=== PATIENT | female | born 1945 | race Caucasian/White ===

== ENCOUNTER → 2017-11-29 13:01 | Outpatient (CLI) | payer MEDICARE, OTHER, SELFPAY ==
[2017-11-29 14:22] LABS: Absolute Lymphocyte Count 1.96 X10^3/ul (0.83-4.51); Absolute Neutrophil Count 3.2 X10^3/uL (2.0-7.7); Basophil# 0.05 X10^3/uL; Basophil% 0.8 % (0-1); Eosinophil# 0.45 X10^3/uL; Hematocrit 42.7 % (37-47); Hemoglobin 14.2 g/dl (12.0-15.0); Lymphocyte # 1.96 X10^3/ul (4.0); Lymphocyte % 30.5 % (19-41); Mean Corp Hgb Conc 33.3 g/gl (32-36); Mean Corpuscular Hgb 31.5 pg (27.0-32.0); Mean Corpuscular Volume 94.7 fL (81-99); Monocyte# 0.77 X10^3/uL; Neutrophil # 3.19 X10^3/uL (2.7-7.7); Neutrophil % 49.5 % (47-70); POSITIVE COUNT NO; POSITIVE DIFFERENTIAL NO; POSITIVE MORPHOLOGY NO; Platelet Count 230 K/mm3 (150-450); RBC Distribution Width CV 13.3 % (11.6-14.6); RBC Distribution Width SD 45.9 fl (35.1-43.9); Red Blood Count 4.51 M/mm3 (4.2-5.4); White Blood Count 6.4 K/mm3 (4.4-11.0)
[2017-11-29 14:36] LABS: ALB/GLOB Ratio 0.9 RATIO (0.9-2.4); AST(SGOT) 20 U/L (15-37); Alanine Aminotransfer ALT/SGPT 29 U/L (13-56); Albumin, Serum 3.6 g/dL (3.2-5.0); Alkaline Phosphatase 101 U/L (45-117); Anion Gap 7 (5-15); BUN 14 mg/dL (7-18); BUN/Creat Ratio 19.8 RATIO (10-20); Chloride 102 mmol/L (98-107); Creatinine, Serum 0.71 mg/dL (0.55-1.02); EST Glomerular Filtration Rate 86 mL/min (>60); Est Glom Filt Rate - Afr Amer 104 mL/min (>60); Glucose 81 mg/dL (74-106); Protein, Total 7.6 g/dL (6.4-8.2); Sodium Level 139 mmol/L (136-145)
== END ==
PROVIDERS: Family Provider Family Medicine; PCP Family Medicine; Visit Provider Internal Medicine Rheumatology
DX: M06.4 Inflammatory polyarthropathy (principal); M18.0 Bilateral primary osteoarthritis of first carpometacarpal joints; M47.892 Other spondylosis, cervical region; E11.9 Type 2 diabetes mellitus without complications; E78.5 Hyperlipidemia, unspecified; I47.1 Supraventricular tachycardia; M18.9 Osteoarthritis of first carpometacarpal joint, unspecified; Z79.899 Other long term (current) drug therapy
CPT/HCPCS: 36415; 80053; 85025

== ENCOUNTER → 2018-03-05 15:34 | Outpatient (CLI) | payer MEDICARE, OTHER, SELFPAY ==
[2018-03-05 17:32] LABS: Absolute Lymphocyte Count 1.87 X10^3/ul (0.83-4.51); Absolute Neutrophil Count 2.4 X10^3/uL (2.0-7.7); Basophil% 1.7 % (0-1); Eosinophil# 0.58 X10^3/uL; Hematocrit 44.3 % (37-47); Lymphocyte # 1.87 X10^3/ul (4.0); Lymphocyte % 32.2 % (19-41); Mean Corp Hgb Conc 33.9 g/gl (32-36); Mean Corpuscular Hgb 32.3 pg (27.0-32.0); Mean Corpuscular Volume 95.5 fL (81-99); Mean Platelet Vol. 11.7 fl (6.2-12.0); Monocyte# 0.83 X10^3/uL; Monocyte% 14.3 % (0-10); Neutrophil # 2.42 X10^3/uL (2.7-7.7); Neutrophil % 41.6 % (47-70); Platelet Count 236 K/mm3 (150-450); RBC Distribution Width CV 13.5 % (11.6-14.6); RBC Distribution Width SD 46.1 fl (35.1-43.9); Red Blood Count 4.64 M/mm3 (4.2-5.4); White Blood Count 5.8 K/mm3 (4.4-11.0)
[2018-03-05 17:33] LABS: POSITIVE COUNT NO; POSITIVE DIFFERENTIAL NO; POSITIVE MORPHOLOGY NO
[2018-03-05 17:50] LABS: ALB/GLOB Ratio 0.9 RATIO (0.9-2.4); AST(SGOT) 25 U/L (15-37); Alanine Aminotransfer ALT/SGPT 31 U/L (13-56); Albumin, Serum 3.6 g/dL (3.2-5.0); Alkaline Phosphatase 98 U/L (45-117); Anion Gap 7 (5-15); BUN 13 mg/dL (7-18); Calcium,Total 9.1 mg/dL (8.5-10.1); Chloride 104 mmol/L (98-107); Creatinine, Serum 0.76 mg/dL (0.55-1.02); EST Glomerular Filtration Rate 79 mL/min (>60); Est Glom Filt Rate - Afr Amer 95 mL/min (>60); Globulin 4.2 g/dL (2.2-4.2); Glucose 76 mg/dL (74-106); Potassium 4.1 mmol/L (3.5-5.1); Protein, Total 7.8 g/dL (6.4-8.2); Sodium Level 142 mmol/L (136-145)
== END ==
PROVIDERS: Family Provider Family Medicine; PCP Family Medicine; Visit Provider Internal Medicine Rheumatology
DX: M06.4 Inflammatory polyarthropathy (principal); Z79.899 Other long term (current) drug therapy; M18.0 Bilateral primary osteoarthritis of first carpometacarpal joints; M47.892 Other spondylosis, cervical region; E11.9 Type 2 diabetes mellitus without complications; E78.5 Hyperlipidemia, unspecified; I47.1 Supraventricular tachycardia; M18.9 Osteoarthritis of first carpometacarpal joint, unspecified
CPT/HCPCS: 36415; 80053; 85025

== ENCOUNTER 2018-05-25 20:48 | Emergency (ER) | payer MEDICARE, OTHER, SELFPAY ==
[2018-05-25 20:49] VITALS: BP 131/76; PULSE 82; RESP 15; TEMP 37; BMI 34.3
[2018-05-25 21:33] LABS: Bacteria 0 SEEN /hpf (None Seen); Mucous, Urine 0 SEEN /hpf (<or=2+)
[2018-05-25 21:34] LABS: Color, Urine Yellow (Yellow); Glucose, Dipstick Normal (Normal); Ketone-Dipstick Negative (Negative); Leukocyte Esterase-Dipstick Negative /ul (Negative); Nitrite-Dipstick Negative (Negative); Occult Blood-Urine 10 /ul (Negative); Protein-Dipstick Negative (Negative); Specific Gravity, Urine 1.005 (1.002-1.030); Urine Bilirubin Dipstick Negative (Negative); Urine Clarity Clear (Clear); Urine Urobilinogen Normal (Normal)
[2018-05-25 21:41] LABS: Squamous Epithelial Cells - UA 0-5 SEEN /hpf (5-10)
[2018-05-25 21:42] LABS: Red Blood Cells-Urine 0-5 SEEN /hpf (0-5); White Blood Cells 0-5 SEEN /hpf (0-5)
[2018-05-25 21:53] LABS: Absolute Lymphocyte Count 1.08 X10^3/ul (0.83-4.51); Absolute Neutrophil Count 16.2 X10^3/uL (2.0-7.7); Basophil# 0.05 X10^3/uL; Basophil% 0.3 % (0-1); Eosinophil# 0.08 X10^3/uL; Eosinophils% 0.4 % (0-5); Hematocrit 44.1 % (37-47); Hemoglobin 15.2 g/dl (12.0-15.0); Lymphocyte # 1.08 X10^3/ul (4.0); Lymphocyte % 5.7 % (19-41); Mean Corp Hgb Conc 34.5 g/gl (32-36); Mean Corpuscular Hgb 32.8 pg (27.0-32.0); Mean Platelet Vol. 11.2 fl (6.2-12.0); Monocyte# 1.41 X10^3/uL; Monocyte% 7.5 % (0-10); Neutrophil # 16.19 X10^3/uL (2.7-7.7); Neutrophil % 85.9 % (47-70); POSITIVE COUNT NO; POSITIVE DIFFERENTIAL NO; POSITIVE MORPHOLOGY NO; Platelet Count 208 K/mm3 (150-450); RBC Distribution Width CV 13.8 % (11.6-14.6); Red Blood Count 4.64 M/mm3 (4.2-5.4); White Blood Count 18.8 K/mm3 (4.4-11.0)
[2018-05-25 22:05] LABS: BUN 20 mg/dL (7-18); Creatinine, Serum 0.88 mg/dL (0.55-1.02); Estimated Creatinine Clearance 68.28 ml/min; Glucose 113 mg/dL (74-106)
[2018-05-25 22:06] LABS: Anion Gap 9 (5-15); BUN/Creat Ratio 22.7 RATIO (10-20); Calcium,Total 8.9 mg/dL (8.5-10.1); Chloride 105 mmol/L (98-107); EST Glomerular Filtration Rate 67 mL/min (>60); Est Glom Filt Rate - Afr Amer 81 mL/min (>60); Potassium 3.8 mmol/L (3.5-5.1); Sodium Level 138 mmol/L (136-145)
--- NOTE | 2018-05-25 23:26 | ED.VISSUMM ---
- ER Visit Summary Date of Service: 05/25/18 Chief Complaint: Fatigue, dizziness, headache History of Present Illness: The patient is a 72 F who presents with the above symptoms. She has had this since today. She states that she has not felt well today. She feels weak and tired. She is felt dizzy and lightheaded. She also has a headache and body aches. She claims of some shortness of breath. She has a history of sinus issues in the past. She is currently on methotrexate for rheumatoid arthritis. Her doctor took her off of her blood pressure medicine, diabetes medicines and her Eliquis about 2-3 months ago. Physical Examination: Vital signs reviewed. HEENT exam unremarkable. Heart is irregular at times without murmurs. Lungs are clear to auscultation. Abdomen is soft and nontender. Extremities reveal no edema. Skin exam normal. Neurologic exam normal. Test Results: EKG is sinus rhythm with no ectopy. Chest x-ray reveals nothing acute. CAT scan of the head reveals bilateral sinus disease. White count 18.8. The rest the labs and urinalysis are unremarkable Emergency Department Course and Treatment: The patient does have some pretty significant sinus disease. This could cause her dizziness and headache. I will give her Tylenol and start her on Augmentin. The patient does not want to be admitted to the hospital. I informed her that she needs to return if she develops a fever or increases symptoms. She will be treated with Augmentin at home. Treatment Plan: [] Disposition: Discharge Impression: Sinusitis This note was generated with [employer] dictation software. It may contain incorrect words, spelling, and punctuation that were not noted in review of the chart prior to signing ED Disposition - Plan for ED Patient: Chief Complaint: General Illness Referrals: Rebecca Maher PA [Primary Care Provider] -
--- NOTE | 2018-05-25 23:28 | ED.DEP ---
ED Disposition - Plan for ED Patient: Disposition: Home or Assisted Living Chief Complaint: General Illness Instructions: ED Sinusitis Abx Tx Prescriptions: Amoxicillin/Potassium Clav [Augmentin 875-125 Tablet] 1 ea PO BID #20 tab Referrals: Rebecca Maher PA [Primary Care Provider] -
[2018-05-25] MEDS: Acetaminophen 500 MG Tablet 1000 MG PO (23:47)
[2018-05-25] MEDS: Amox/Clavulanate 875 MG Tablet PO (23:47)
[2018-05-25 23:48] VITALS: BP 146/109
== END 2018-05-25 23:50 | disposition home or self-care (01) ==
PROVIDERS: Emergency Provider Emergency Medicine; Family Provider Physician Assistant; PCP Physician Assistant
DX: J32.0 Chronic maxillary sinusitis (principal); J32.1 Chronic frontal sinusitis; J32.2 Chronic ethmoidal sinusitis; M06.9 Rheumatoid arthritis, unspecified; Z79.899 Other long term (current) drug therapy
CPT/HCPCS: 70450; 71045; 80048; 81001; 84484; 85025; 93005; 96360; 96361; 99284; J7030; J7040

== ENCOUNTER → 2018-06-02 10:55 | Outpatient (CLI) | payer MEDICARE, OTHER, SELFPAY ==
[2018-06-02 12:27] LABS: Hematocrit 44.3 % (37-47); Hemoglobin 15.3 g/dl (12.0-15.0); Mean Corp Hgb Conc 34.5 g/gl (32-36); Mean Corpuscular Hgb 32.8 pg (27.0-32.0); Mean Corpuscular Volume 95.1 fL (81-99); Platelet Count 253 K/mm3 (150-450); RBC Distribution Width CV 13.5 % (11.6-14.6); RBC Distribution Width SD 45.7 fl (35.1-43.9); Red Blood Count 4.66 M/mm3 (4.2-5.4); White Blood Count 6.7 K/mm3 (4.4-11.0)
[2018-06-02 12:30] LABS: Scan Indicated on CBC? Y/N NO
[2018-06-02 12:35] LABS: ALB/GLOB Ratio 0.8 RATIO (0.9-2.4); AST(SGOT) 24 U/L (15-37); Alanine Aminotransfer ALT/SGPT 35 U/L (13-56); Albumin, Serum 3.4 g/dL (3.2-5.0); Alkaline Phosphatase 92 U/L (45-117); Anion Gap 11 (5-15); BUN 17 mg/dL (7-18); BUN/Creat Ratio 23.9 RATIO (10-20); Calcium,Total 9.1 mg/dL (8.5-10.1); Chloride 105 mmol/L (98-107); Creatinine, Serum 0.71 mg/dL (0.55-1.02); EST Glomerular Filtration Rate 85 mL/min (>60); Est Glom Filt Rate - Afr Amer 103 mL/min (>60); Glucose 81 mg/dL (74-106); Potassium 4.2 mmol/L (3.5-5.1); Protein, Total 7.4 g/dL (6.4-8.2); Sodium Level 143 mmol/L (136-145)
== END ==
PROVIDERS: Family Provider Physician Assistant; PCP Physician Assistant; Visit Provider Registered Nurse
DX: R06.02 Shortness of breath (principal)
CPT/HCPCS: 80053; 85027; 85379

== ENCOUNTER → 2018-06-23 14:42 | Outpatient (CLI) | payer MEDICARE, OTHER, SELFPAY ==
[2018-06-23 17:47] LABS: Absolute Neutrophil Count 2.7 X10^3/uL (2.0-7.7); Basophil# 0.05 X10^3/uL; Basophil% 0.9 % (0-1); Eosinophil# 0.28 X10^3/uL; Eosinophils% 5.1 % (0-5); Hematocrit 41.9 % (37-47); Hemoglobin 14.2 g/dl (12.0-15.0); Lymphocyte % 32.8 % (19-41); Mean Corp Hgb Conc 33.9 g/gl (32-36); Mean Corpuscular Hgb 32.9 pg (27.0-32.0); Mean Platelet Vol. 11.4 fl (6.2-12.0); Monocyte# 0.68 X10^3/uL; Monocyte% 12.4 % (0-10); Neutrophil # 2.67 X10^3/uL (2.7-7.7); Neutrophil % 48.6 % (47-70); Platelet Count 195 K/mm3 (150-450); RBC Distribution Width CV 13.7 % (11.6-14.6); RBC Distribution Width SD 47.6 fl (35.1-43.9); Red Blood Count 4.32 M/mm3 (4.2-5.4); White Blood Count 5.5 K/mm3 (4.4-11.0)
[2018-06-23 17:53] LABS: POSITIVE COUNT NO; POSITIVE DIFFERENTIAL NO; POSITIVE MORPHOLOGY NO
[2018-06-23 17:59] LABS: ALB/GLOB Ratio 0.9 RATIO (0.9-2.4); AST(SGOT) 27 U/L (15-37); Alanine Aminotransfer ALT/SGPT 39 U/L (13-56); Albumin, Serum 3.4 g/dL (3.2-5.0); Alkaline Phosphatase 118 U/L (45-117); Anion Gap 8 (5-15); BUN 15 mg/dL (7-18); BUN/Creat Ratio 19.5 RATIO (10-20); Calcium,Total 9.2 mg/dL (8.5-10.1); Chloride 104 mmol/L (98-107); Creatinine, Serum 0.77 mg/dL (0.55-1.02); EST Glomerular Filtration Rate 78 mL/min (>60); Est Glom Filt Rate - Afr Amer 94 mL/min (>60); Globulin 3.8 g/dL (2.2-4.2); Glucose 78 mg/dL (74-106); Potassium 3.9 mmol/L (3.5-5.1); Protein, Total 7.2 g/dL (6.4-8.2); Sodium Level 142 mmol/L (136-145)
== END ==
PROVIDERS: Family Provider Physician Assistant; PCP Physician Assistant; Referring Provider Internal Medicine Rheumatology; Visit Provider Internal Medicine Rheumatology
DX: M06.4 Inflammatory polyarthropathy (principal); Z79.899 Other long term (current) drug therapy; M18.0 Bilateral primary osteoarthritis of first carpometacarpal joints; M47.892 Other spondylosis, cervical region; E11.9 Type 2 diabetes mellitus without complications; E78.5 Hyperlipidemia, unspecified; I47.1 Supraventricular tachycardia
CPT/HCPCS: 36415; 80053; 85025

== ENCOUNTER → 2019-01-02 | Outpatient (CLI) | payer MEDICARE, OTHER, SELFPAY ==
[2019-01-02 14:51] LABS: Absolute Lymphocyte Count 1.75 X10^3/ul (0.83-4.51); Absolute Neutrophil Count 2.8 X10^3/uL (2.0-7.7); Basophil# 0.07 X10^3/uL; Basophil% 1.3 % (0-1); Eosinophil# 0.22 X10^3/uL; Eosinophils% 4.1 % (0-5); Hematocrit 42.8 % (37-47); Hemoglobin 14.3 g/dl (12.0-15.0); Lymphocyte # 1.75 X10^3/ul (4.0); Lymphocyte % 32.6 % (19-41); Mean Corp Hgb Conc 33.4 g/gl (32-36); Mean Corpuscular Hgb 32.6 pg (27.0-32.0); Mean Corpuscular Volume 97.5 fL (81-99); Mean Platelet Vol. 11.3 fl (6.2-12.0); Monocyte# 0.53 X10^3/uL; Monocyte% 9.9 % (0-10); Neutrophil # 2.79 X10^3/uL (2.7-7.7); Neutrophil % 52.1 % (47-70); POSITIVE COUNT NO; POSITIVE DIFFERENTIAL NO; POSITIVE MORPHOLOGY NO; Platelet Count 231 K/mm3 (150-450); RBC Distribution Width CV 14.5 % (11.6-14.6); RBC Distribution Width SD 51.2 fl (35.1-43.9); Red Blood Count 4.39 M/mm3 (4.2-5.4); White Blood Count 5.4 K/mm3 (4.4-11.0)
[2019-01-02 15:31] LABS: AST(SGOT) 20 U/L (15-37); Alanine Aminotransfer ALT/SGPT 25 U/L (13-56); Albumin, Serum 3.7 g/dL (3.2-5.0); Alkaline Phosphatase 113 U/L (45-117); Anion Gap 4 (5-15); BUN 13 mg/dL (7-18); BUN/Creat Ratio 16.6 RATIO (10-20); Calcium,Total 9.1 mg/dL (8.5-10.1); Chloride 109 mmol/L (98-107); Creatinine, Serum 0.78 mg/dL (0.55-1.02); EST Glomerular Filtration Rate 76 mL/min (>60); Est Glom Filt Rate - Afr Amer 92 mL/min (>60); Globulin 3.7 g/dL (2.2-4.2); Glucose 77 mg/dL (74-106); Protein, Total 7.4 g/dL (6.4-8.2); Sodium Level 141 mmol/L (136-145)
== END | disposition home or self-care (01) ==
LOC: MTLAB 13:16
PROVIDERS: Family Provider Physician Assistant; PCP Physician Assistant; Referring Provider Internal Medicine Rheumatology; Visit Provider Internal Medicine Rheumatology
DX: M06.4 Inflammatory polyarthropathy (principal); M18.0 Bilateral primary osteoarthritis of first carpometacarpal joints; M21.40 Flat foot [pes planus] (acquired), unspecified foot; M47.892 Other spondylosis, cervical region; E11.9 Type 2 diabetes mellitus without complications; E78.5 Hyperlipidemia, unspecified; I47.1 Supraventricular tachycardia; M18.9 Osteoarthritis of first carpometacarpal joint, unspecified; Z79.899 Other long term (current) drug therapy
CPT/HCPCS: 36415; 80053; 85025

== ENCOUNTER → 2019-04-07 | Outpatient (CLI) | payer MEDICARE, OTHER, SELFPAY ==
[2019-04-07 15:44] LABS: Absolute Neutrophil Count 3.1 X10^3/uL (2.0-7.7); Basophil# 0.06 X10^3/uL; Basophil% 1.1 % (0-1); Eosinophil# 0.18 X10^3/uL; Eosinophils% 3.3 % (0-5); Hematocrit 44.6 % (37-47); Lymphocyte % 27.2 % (19-41); Mean Corp Hgb Conc 33.6 g/dL (32-36); Mean Corpuscular Hgb 33.2 pg (27.0-32.0); Mean Corpuscular Volume 98.7 fL (81-99); Mean Platelet Vol. 11.4 fl (6.2-12.0); Monocyte% 12.7 % (0-10); NRBC Flagged by Analyzer 0 % (0-5); Neutrophil # 3.05 X10^3/uL (2.7-7.7); Neutrophil % 55.3 % (47-70); Platelet Count 236 K/mm3 (150-450); RBC Distribution Width CV 13.6 % (11.6-14.6); RBC Distribution Width SD 49.1 fl (35.1-43.9); Red Blood Count 4.52 M/mm3 (4.2-5.4); White Blood Count 5.5 K/mm3 (4.4-11.0)
[2019-04-07 16:04] LABS: AST(SGOT) 22 U/L (15-37); Alanine Aminotransfer ALT/SGPT 25 U/L (13-56); Albumin, Serum 3.7 g/dL (3.2-5.0); Alkaline Phosphatase 129 U/L (45-117); Anion Gap 4 (5-15); BUN 14 mg/dL (7-18); BUN/Creat Ratio 16.2 RATIO (10-20); Calcium,Total 9.4 mg/dL (8.5-10.1); Chloride 109 mmol/L (98-107); Creatinine, Serum 0.86 mg/dL (0.55-1.02); EST Glomerular Filtration Rate 68 mL/min (>60); Est Glom Filt Rate - Afr Amer 82 mL/min (>60); Globulin 3.7 g/dL (2.2-4.2); Glucose 86 mg/dL (74-106); Protein, Total 7.4 g/dL (6.4-8.2); Sodium Level 139 mmol/L (136-145)
== END | disposition home or self-care (01) ==
LOC: MTLAB 14:07
PROVIDERS: Family Provider Physician Assistant; PCP Physician Assistant; Referring Provider Internal Medicine Rheumatology; Visit Provider Internal Medicine Rheumatology
DX: M06.4 Inflammatory polyarthropathy (principal); M18.11 Unilateral primary osteoarthritis of first carpometacarpal joint, right hand; M21.40 Flat foot [pes planus] (acquired), unspecified foot; M47.892 Other spondylosis, cervical region; E11.9 Type 2 diabetes mellitus without complications; E78.5 Hyperlipidemia, unspecified; I47.1 Supraventricular tachycardia; M18.9 Osteoarthritis of first carpometacarpal joint, unspecified; Z79.899 Other long term (current) drug therapy
CPT/HCPCS: 36415; 80053; 85025

== ENCOUNTER → 2019-10-05 10:00 | Outpatient (CLI) | payer MEDICARE, OTHER, SELFPAY ==
[2019-10-05 13:09] LABS: Absolute Lymphocyte Count 1.27 X10^3/uL (0.83-4.51); Basophil# 0.05 X10^3/uL; Eosinophils% 3.9 % (0-5); Lymphocyte # 1.27 X10^3/ul (4.0); Lymphocyte % 24.8 % (19-41); Mean Corp Hgb Conc 33.3 g/dL (32-36); Mean Corpuscular Hgb 32.9 pg (27.0-32.0); Mean Corpuscular Volume 98.7 fL (81-99); Mean Platelet Vol. 11.2 fl (6.2-12.0); Monocyte# 0.63 X10^3/uL; Monocyte% 12.3 % (0-10); NRBC Flagged by Analyzer 0 % (0-5); Neutrophil # 2.96 X10^3/uL (2.7-7.7); Neutrophil % 57.6 % (47-70); Platelet Count 219 K/mm3 (150-450); RBC Distribution Width CV 13.6 % (11.6-14.6); RBC Distribution Width SD 49.2 fl (35.1-43.9); Red Blood Count 4.56 M/mm3 (4.2-5.4); White Blood Count 5.1 K/mm3 (4.4-11.0)
[2019-10-05 13:54] LABS: ALB/GLOB Ratio 0.9 RATIO (0.9-2.4); AST(SGOT) 18 U/L (15-37); Alanine Aminotransfer ALT/SGPT 24 U/L (13-56); Albumin, Serum 3.5 g/dL (3.2-5.0); Alkaline Phosphatase 120 U/L (45-117); Anion Gap 4 (5-15); BUN 17 mg/dL (7-18); BUN/Creat Ratio 20.2 RATIO (10-20); Calcium,Total 9.4 mg/dL (8.5-10.1); Chloride 108 mmol/L (98-107); Creatinine, Serum 0.84 mg/dL (0.55-1.02); EST Glomerular Filtration Rate 70 mL/min (>60); Est Glom Filt Rate - Afr Amer 85 mL/min (>60); Glucose 80 mg/dL (74-106); Potassium 4.1 mmol/L (3.5-5.1); Protein, Total 7.5 g/dL (6.4-8.2); Sodium Level 141 mmol/L (136-145)
== END ==
PROVIDERS: Family Provider Physician Assistant; PCP Physician Assistant; Referring Provider Internal Medicine Rheumatology; Visit Provider Internal Medicine Rheumatology
DX: M06.4 Inflammatory polyarthropathy (principal); Z79.899 Other long term (current) drug therapy; M18.11 Unilateral primary osteoarthritis of first carpometacarpal joint, right hand; M21.40 Flat foot [pes planus] (acquired), unspecified foot; E11.9 Type 2 diabetes mellitus without complications
CPT/HCPCS: 36415; 80053; 85025

== ENCOUNTER → 2019-12-31 14:41 | Outpatient (CLI) | payer MEDICARE, OTHER, SELFPAY ==
[2019-12-31 17:28] LABS: Absolute Lymphocyte Count 1.51 X10^3/uL (0.83-4.51); Absolute Neutrophil Count 2.6 X10^3/uL (2.0-7.7); Basophil# 0.08 X10^3/uL; Basophil% 1.6 % (0-1); Eosinophil# 0.15 X10^3/uL; Hematocrit 42.4 % (37-47); Hemoglobin 14.3 g/dL (12.0-15.0); Lymphocyte # 1.51 X10^3/ul (4.0); Mean Corp Hgb Conc 33.7 g/dL (32-36); Mean Corpuscular Hgb 33.3 pg (27.0-32.0); Mean Corpuscular Volume 98.6 fL (81-99); Mean Platelet Vol. 11.4 fl (6.2-12.0); Monocyte% 13.9 % (0-10); NRBC Flagged by Analyzer 0 % (0-5); Neutrophil # 2.58 X10^3/uL (2.7-7.7); Neutrophil % 51.3 % (47-70); Platelet Count 213 K/mm3 (150-450); RBC Distribution Width CV 14.1 % (11.6-14.6); RBC Distribution Width SD 50.9 fl (35.1-43.9)
[2019-12-31 17:41] LABS: AST(SGOT) 17 U/L (15-37); Alanine Aminotransfer ALT/SGPT 26 U/L (13-56); Albumin, Serum 3.4 g/dL (3.2-5.0); Alkaline Phosphatase 121 U/L (45-117); Anion Gap 4 (5-15); BUN 15 mg/dL (7-18); BUN/Creat Ratio 19.5 RATIO (10-20); Chloride 107 mmol/L (98-107); Creatinine, Serum 0.77 mg/dL (0.55-1.02); EST Glomerular Filtration Rate 77 mL/min (>60); Est Glom Filt Rate - Afr Amer 94 mL/min (>60); Globulin 3.4 g/dL (2.2-4.2); Glucose 102 mg/dL (74-106); Potassium 3.8 mmol/L (3.5-5.1); Protein, Total 6.8 g/dL (6.4-8.2); Sodium Level 141 mmol/L (136-145)
== END ==
PROVIDERS: PCP Physician Assistant; Referring Provider Internal Medicine Rheumatology; Visit Provider Internal Medicine Rheumatology
DX: M06.4 Inflammatory polyarthropathy (principal); Z79.899 Other long term (current) drug therapy; M18.11 Unilateral primary osteoarthritis of first carpometacarpal joint, right hand; M21.40 Flat foot [pes planus] (acquired), unspecified foot; E11.9 Type 2 diabetes mellitus without complications
CPT/HCPCS: 36415; 80053; 85025

== ENCOUNTER → 2020-03-09 12:35 | Outpatient (CLI) | payer MEDICARE, OTHER, SELFPAY ==
[2020-03-09 15:48] LABS: Absolute Neutrophil Count 2.9 X10^3/uL (2.0-7.7); Basophil# 0.06 X10^3/uL; Basophil% 1.2 % (0-1); Eosinophil# 0.12 X10^3/uL; Eosinophils% 2.5 % (0-5); Hematocrit 45.4 % (37-47); Lymphocyte % 24.6 % (19-41); Mean Corpuscular Hgb 33.2 pg (27.0-32.0); Mean Corpuscular Volume 100.4 fL (81-99); Mean Platelet Vol. 11.4 fl (6.2-12.0); Monocyte# 0.55 X10^3/uL; Monocyte% 11.3 % (0-10); NRBC Flagged by Analyzer 0 % (0-5); Neutrophil # 2.94 X10^3/uL (2.7-7.7); Neutrophil % 60.2 % (47-70); Platelet Count 238 K/mm3 (150-450); RBC Distribution Width CV 13.7 % (11.6-14.6); RBC Distribution Width SD 50.8 fl (35.1-43.9); Red Blood Count 4.52 M/mm3 (4.2-5.4); White Blood Count 4.9 K/mm3 (4.4-11.0)
[2020-03-09 16:14] LABS: AST(SGOT) 23 U/L (15-37); Alanine Aminotransfer ALT/SGPT 29 U/L (13-56); Albumin, Serum 3.7 g/dL (3.2-5.0); Alkaline Phosphatase 97 U/L (45-117); Anion Gap 5 (5-15); BUN 14 mg/dL (7-18); Calcium,Total 9.4 mg/dL (8.5-10.1); Chloride 106 mmol/L (98-107); Creatinine, Serum 0.82 mg/dL (0.55-1.02); EST Glomerular Filtration Rate 71 mL/min (>60); Est Glom Filt Rate - Afr Amer 86 mL/min (>60); Globulin 3.6 g/dL (2.2-4.2); Glucose 95 mg/dL (74-106); Potassium 4.1 mmol/L (3.5-5.1); Protein, Total 7.3 g/dL (6.4-8.2); Sodium Level 140 mmol/L (136-145)
== END ==
PROVIDERS: PCP Physician Assistant; Referring Provider Internal Medicine Rheumatology; Visit Provider Internal Medicine Rheumatology
DX: M06.4 Inflammatory polyarthropathy (principal); Z79.899 Other long term (current) drug therapy; M18.11 Unilateral primary osteoarthritis of first carpometacarpal joint, right hand; M21.40 Flat foot [pes planus] (acquired), unspecified foot; E11.9 Type 2 diabetes mellitus without complications
CPT/HCPCS: 36415; 80053; 85025

== ENCOUNTER → 2020-05-31 14:18 | Outpatient (CLI) | payer MEDICARE, OTHER, SELFPAY ==
[2020-05-31 18:00] LABS: Absolute Lymphocyte Count 1.52 X10^3/uL (0.83-4.51); Absolute Neutrophil Count 3.7 X10^3/uL (2.0-7.7); Basophil# 0.05 X10^3/uL; Basophil% 0.8 % (0-1); Eosinophil# 0.15 X10^3/uL; Eosinophils% 2.4 % (0-5); Hematocrit 44.1 % (37-47); Hemoglobin 14.6 g/dL (12.0-15.0); Lymphocyte # 1.52 X10^3/ul (4.0); Lymphocyte % 24.8 % (19-41); Mean Corp Hgb Conc 33.1 g/dL (32-36); Mean Corpuscular Volume 99.5 fL (81-99); Mean Platelet Vol. 11.6 fl (6.2-12.0); Monocyte# 0.68 X10^3/uL; Monocyte% 11.1 % (0-10); NRBC Flagged by Analyzer 0 % (0-5); Neutrophil # 3.72 X10^3/uL (2.7-7.7); Neutrophil % 60.7 % (47-70); Platelet Count 246 K/mm3 (150-450); RBC Distribution Width CV 13.5 % (11.6-14.6); RBC Distribution Width SD 49.4 fl (35.1-43.9); Red Blood Count 4.43 M/mm3 (4.2-5.4); White Blood Count 6.1 K/mm3 (4.4-11.0)
[2020-05-31 18:21] LABS: AST(SGOT) 18 U/L (15-37); Alanine Aminotransfer ALT/SGPT 25 U/L (13-56); Albumin, Serum 3.6 g/dL (3.2-5.0); Alkaline Phosphatase 100 U/L (45-117); Anion Gap 3 (5-15); BUN 11 mg/dL (7-18); BUN/Creat Ratio 14.5 RATIO (10-20); Calcium,Total 8.9 mg/dL (8.5-10.1); Chloride 106 mmol/L (98-107); Creatinine, Serum 0.76 mg/dL (0.55-1.02); EST Glomerular Filtration Rate 79 mL/min (>60); Est Glom Filt Rate - Afr Amer 95 mL/min (>60); Globulin 3.5 g/dL (2.2-4.2); Glucose 73 mg/dL (74-106); Potassium 3.8 mmol/L (3.5-5.1); Protein, Total 7.1 g/dL (6.4-8.2); Sodium Level 139 mmol/L (136-145)
== END ==
PROVIDERS: PCP Physician Assistant; Referring Provider Internal Medicine Rheumatology; Visit Provider Internal Medicine Rheumatology
DX: M06.4 Inflammatory polyarthropathy (principal); Z79.899 Other long term (current) drug therapy; M18.11 Unilateral primary osteoarthritis of first carpometacarpal joint, right hand; M21.40 Flat foot [pes planus] (acquired), unspecified foot; E11.9 Type 2 diabetes mellitus without complications
CPT/HCPCS: 36415; 80053; 85025

== ENCOUNTER 2020-08-16 17:26 | Emergency (ER) | payer MEDICARE, OTHER, SELFPAY ==
[2020-08-16 17:27] VITALS: BP 145/65; PULSE 68; RESP 18; TEMP 36.2; O2SAT 97; BMI 36.8
--- NOTE | 2020-08-16 17:49 | EKG12_ITS ---
Test Reason : CHEST TIGHTNESS Blood Pressure : / mmHG Vent. Rate : 067 BPM Atrial Rate : 067 BPM P-R Int : 192 ms QRS Dur : 084 ms QT Int : 378 ms P-R-T Axes : 024 023 032 degrees QTc Int : 399 ms Normal sinus rhythm Normal ECG Confirmed by SHAJI MONTANEZ, RICARDO ([id number]), editor trade journal BRUNO ARANDA ([id number]) on 08/19/2020 11:02:04 AM Referred By: Confirmed By:RICARDO GIRARD MD
--- NOTE | 2020-08-16 18:03 | ED.DCSUM_ITS ---
- ER Visit Summary Date of Service: 08/16/20 Chief Complaint: Cough History of Present Illness: The patient is a 74 F presenting with cough, fever. She states the symptoms started yesterday. She was tested for Covid 2 weeks ago she states as a precaution. She was asymptomatic at the time. She denies loss of sense of taste or smell. She has had a dry cough. She has shortness of breath which is chronic and no worse than usual. She complains of subjective fever and chills. She has myalgias. She denies chest pain. She states yesterday she had a headache but this has resolved. She denies other complaints. Physical Examination: Vitals are stable. Patient is afebrile. Alert no acute distress. Pulse ox 97% on room air. HEENT exam is unremarkable. Neck is supple. Lungs are clear and equal bilaterally. Heart is regular rate and rhythm. Abdomen is soft nontender nondistended. Extremities are unremarkable. Skin is warm and dry. No focal neurologic deficit. Remainder of exam is unremarkable. Emergency Department Course and Treatment: EKG is sinus rhythm rate of 67 with no acute ischemic changes. Chest x-ray shows stable, nonacute portable x-ray examination of the chest. Covid test is positive. Her ambulatory pulse ox is 93 to 96% on room air. On reevaluation she is resting comfortably. She is advised to socially distance and quarantine. She is advised signs and symptoms for which to return to the ED. Advised to follow-up with primary care physician. Disposition: Discharged home Impression: COVID-19 This note was generated with [employer] dictation software. It may contain incorrect words, spelling, and punctuation that were not noted in review of the chart prior to signing ED Disposition - Plan for ED Patient: Disposition: Home or Assisted Living Instructions: ED Viral Syndrome Referrals: Rebecca Maher PA [Primary Care Provider] -
--- NOTE | 2020-08-16 18:05 | RAD_ITS ---
STUDY: X-RAY CHEST REASON FOR EXAM: Female, 74 years old. PT WITH COUGH, HEADACHE, WEAKNESS, FEVER SINCE YESTERDAY. TECHNIQUE: AP COMPARISON: 05/25/2018 FINDINGS: The lungs are clear and expanded. There is no demonstrated pleural abnormality. Normal size heart. Normal mediastinum and mariella. Normal visualized pulmonary arteries. There is atherosclerotic tortuosity of the aortic arch and descending thoracic aorta. Normal visualized thoracic spine. Normal visualized ribs, clavicles, and shoulders. There is no demonstrated abnormality of the visualized soft tissue structures of the upper abdomen. RAD/Chest 1 View (Portable) IMPRESSION: Stable, nonacute portable x-ray examination of the chest. Electronically Signed: Aung De Leon MD (Brooks) at 18:28 EST , Service support ,
[2020-08-16 19:26] VITALS: BP 126/59; PULSE 70; RESP 18; O2SAT 96
[2020-08-16 19:37] VITALS: O2SAT 96
--- NOTE | 2020-08-16 19:45 | ED.DEP ---
ED Disposition - Plan for ED Patient: Instructions: ED Viral Syndrome Referrals: Rebecca Maher PA [Primary Care Provider] -
== END 2020-08-16 20:06 | disposition home or self-care (01) ==
LOC: ED 18:43
PROVIDERS: Emergency Provider Emergency Medicine; PCP Physician Assistant
DX: U07.1 COVID-19 (principal); E11.9 Type 2 diabetes mellitus without complications; K21.9 Gastro-esophageal reflux disease without esophagitis; E78.00 Pure hypercholesterolemia, unspecified; M06.9 Rheumatoid arthritis, unspecified
CPT/HCPCS: 71045; 87426; 93005; 99282

== ENCOUNTER → 2020-09-20 12:25 | Outpatient (CLI) | payer MEDICARE, OTHER, SELFPAY ==
[2020-09-20 15:06] LABS: Absolute Lymphocyte Count 1.82 X10^3/uL (0.83-4.51); Basophil# 0.08 X10^3/uL; Basophil% 1.3 % (0-1); Eosinophil# 0.25 X10^3/uL; Eosinophils% 4.2 % (0-5); Hematocrit 43.9 % (37-47); Hemoglobin 14.2 g/dL (12.0-15.0); Lymphocyte # 1.82 X10^3/ul (4.0); Lymphocyte % 30.4 % (19-41); Mean Corp Hgb Conc 32.3 g/dL (32-36); Mean Corpuscular Hgb 32.6 pg (27.0-32.0); Mean Corpuscular Volume 100.7 fL (81-99); Mean Platelet Vol. 11.3 fl (6.2-12.0); Monocyte# 0.79 X10^3/uL; Monocyte% 13.2 % (0-10); NRBC Flagged by Analyzer 0 % (0-5); Neutrophil # 3.03 X10^3/uL (2.7-7.7); Neutrophil % 50.7 % (47-70); Platelet Count 216 K/mm3 (150-450); RBC Distribution Width CV 14.2 % (11.6-14.6); RBC Distribution Width SD 53.6 fl (35.1-43.9); Red Blood Count 4.36 M/mm3 (4.2-5.4)
[2020-09-20 15:17] LABS: ALB/GLOB Ratio 0.9 RATIO (0.9-2.4); AST(SGOT) 21 U/L (15-37); Alanine Aminotransfer ALT/SGPT 26 U/L (13-56); Albumin, Serum 3.6 g/dL (3.2-5.0); Alkaline Phosphatase 121 U/L (45-117); Anion Gap 3 (5-15); BUN 11 mg/dL (7-18); BUN/Creat Ratio 13.3 RATIO (10-20); Calcium,Total 9.2 mg/dL (8.5-10.1); Chloride 106 mmol/L (98-107); Creatinine, Serum 0.83 mg/dL (0.55-1.02); EST Glomerular Filtration Rate 71 mL/min (>60); Est Glom Filt Rate - Afr Amer 86 mL/min (>60); Glucose 81 mg/dL (74-106); Protein, Total 7.6 g/dL (6.4-8.2); Sodium Level 141 mmol/L (136-145)
== END ==
PROVIDERS: PCP Physician Assistant; Referring Provider Internal Medicine Rheumatology; Visit Provider Internal Medicine Rheumatology
DX: M06.4 Inflammatory polyarthropathy (principal); Z79.899 Other long term (current) drug therapy; M18.11 Unilateral primary osteoarthritis of first carpometacarpal joint, right hand; M21.40 Flat foot [pes planus] (acquired), unspecified foot; E11.9 Type 2 diabetes mellitus without complications
CPT/HCPCS: 36415; 80053; 85025

== ENCOUNTER → 2021-03-02 15:02 | Outpatient (CLI) | payer MEDICARE, OTHER, SELFPAY ==
[2021-03-02 17:34] LABS: Absolute Lymphocyte Count 1.45 X10^3/uL (0.83-4.51); Basophil# 0.06 X10^3/uL; Basophil% 1.1 % (0-1); Eosinophil# 0.14 X10^3/uL; Eosinophils% 2.6 % (0-5); Hematocrit 42.6 % (37-47); Hemoglobin 14.4 g/dL (12.0-15.0); Lymphocyte # 1.45 X10^3/ul (0.83-4.51); Lymphocyte % 27.2 % (19-41); Mean Corp Hgb Conc 33.8 g/dL (32-36); Mean Corpuscular Volume 100.7 fL (81-99); Mean Platelet Vol. 11.3 fl (6.2-12.0); Monocyte# 0.63 X10^3/uL; Monocyte% 11.8 % (0-10); NRBC Flagged by Analyzer 0 % (0-5); Neutrophil # 3.03 X10^3/uL (2.7-7.7); Neutrophil % 56.9 % (47-70); Platelet Count 232 K/mm3 (150-450); RBC Distribution Width CV 14.2 % (11.6-14.6); RBC Distribution Width SD 51.7 fl (35.1-43.9); Red Blood Count 4.23 M/mm3 (4.2-5.4); White Blood Count 5.3 K/mm3 (4.4-11.0)
[2021-03-02 18:24] LABS: ALB/GLOB Ratio 1.1 RATIO (0.9-2.4); AST(SGOT) 20 U/L (15-37); Alanine Aminotransfer ALT/SGPT 29 U/L (13-56); Albumin, Serum 3.7 g/dL (3.2-5.0); Alkaline Phosphatase 110 U/L (45-117); Anion Gap 6 (5-15); BUN 18 mg/dL (7-18); BUN/Creat Ratio 22.4 RATIO (10-20); Calcium,Total 9.4 mg/dL (8.5-10.1); Chloride 107 mmol/L (98-107); EST Glomerular Filtration Rate 73 mL/min (>60); Est Glom Filt Rate - Afr Amer 89 mL/min (>60); Globulin 3.5 g/dL (2.2-4.2); Glucose 83 mg/dL (74-106); Potassium 4.1 mmol/L (3.5-5.1); Protein, Total 7.2 g/dL (6.4-8.2); Sodium Level 140 mmol/L (136-145)
== END ==
PROVIDERS: PCP Physician Assistant; Referring Provider Internal Medicine Rheumatology; Visit Provider Internal Medicine Rheumatology
DX: M06.4 Inflammatory polyarthropathy (principal); Z79.899 Other long term (current) drug therapy; M18.11 Unilateral primary osteoarthritis of first carpometacarpal joint, right hand; M21.40 Flat foot [pes planus] (acquired), unspecified foot; E11.9 Type 2 diabetes mellitus without complications
CPT/HCPCS: 36415; 80053; 85025

== ENCOUNTER → 2021-05-25 12:34 | Outpatient (CLI) | payer MEDICARE, OTHER, SELFPAY ==
[2021-05-25 15:12] LABS: Absolute Lymphocyte Count 1.61 X10^3/uL (0.83-4.51); Absolute Neutrophil Count 3.5 X10^3/uL (2.0-7.7); Basophil# 0.06 X10^3/uL; Eosinophil# 0.18 X10^3/uL; Hematocrit 43.4 % (37-47); Hemoglobin 14.6 g/dL (12.0-15.0); Lymphocyte # 1.61 X10^3/ul (0.83-4.51); Lymphocyte % 26.4 % (19-41); Mean Corp Hgb Conc 33.6 g/dL (32-36); Mean Corpuscular Hgb 33.6 pg (27.0-32.0); Mean Corpuscular Volume 99.8 fL (81-99); Mean Platelet Vol. 11.4 fl (6.2-12.0); Monocyte# 0.72 X10^3/uL; Monocyte% 11.8 % (0-10); NRBC Flagged by Analyzer 0 % (0-5); Neutrophil % 57.5 % (47-70); Platelet Count 225 K/mm3 (150-450); RBC Distribution Width CV 13.5 % (11.6-14.6); RBC Distribution Width SD 49.4 fl (35.1-43.9); Red Blood Count 4.35 M/mm3 (4.2-5.4); White Blood Count 6.1 K/mm3 (4.4-11.0)
[2021-05-25 15:27] LABS: AST(SGOT) 22 U/L (15-37); Alanine Aminotransfer ALT/SGPT 29 U/L (13-56); Albumin, Serum 3.6 g/dL (3.2-5.0); Alkaline Phosphatase 122 U/L (45-117); Anion Gap 4 (5-15); BUN 16 mg/dL (7-18); BUN/Creat Ratio 22.2 RATIO (10-20); Calcium,Total 9.2 mg/dL (8.5-10.1); Chloride 106 mmol/L (98-107); Creatinine, Serum 0.72 mg/dL (0.55-1.02); EST Glomerular Filtration Rate 83 mL/min (>60); Est Glom Filt Rate - Afr Amer 101 mL/min (>60); Globulin 3.5 g/dL (2.2-4.2); Glucose 97 mg/dL (74-106); Potassium 4.2 mmol/L (3.5-5.1); Protein, Total 7.1 g/dL (6.4-8.2); Sodium Level 141 mmol/L (136-145)
== END ==
PROVIDERS: PCP Physician Assistant; Referring Provider Internal Medicine Rheumatology; Visit Provider Internal Medicine Rheumatology
DX: M06.4 Inflammatory polyarthropathy (principal); Z79.899 Other long term (current) drug therapy; M18.11 Unilateral primary osteoarthritis of first carpometacarpal joint, right hand; M21.40 Flat foot [pes planus] (acquired), unspecified foot; E11.9 Type 2 diabetes mellitus without complications
CPT/HCPCS: 36415; 80053; 85025

== ENCOUNTER → 2021-06-06 10:11 | Outpatient (CLI) | payer MEDICARE, OTHER, SELFPAY ==
--- NOTE | 2021-06-06 10:15 | RAD_ITS ---
STUDY: X-RAY - RIGHT KNEE REASON FOR EXAM: Right knee pain. TECHNIQUE: 4 view(s) of the knee. COMPARISON: Radiograph report 08/28/2010. FINDINGS: Normal visualized distal femur. Normal visualized proximal tibia and fibula. Normal proximal tibiofibular articulation. There is mild joint space narrowing of the medial femorotibial compartment. Normal lateral femorotibial compartment. Normal patellofemoral articulation. The soft tissue structures are unremarkable. RAD/Knee 4 or More Views IMPRESSION: Mild arthrosis of the medial femorotibial compartment. Electronically Signed: Octavio Tom MD at 14:59 EDT Tel , Service support ,
--- NOTE | 2021-06-06 10:15 | RAD_ITS ---
STUDY: X-RAY - LEFT KNEE REASON FOR EXAM: Left knee pain. TECHNIQUE: 4 view(s) of the knee. COMPARISON: Radiographs of the left lower leg 03/26/2017 and radiograph report 08/28/2010. FINDINGS: Normal visualized distal femur. Normal visualized proximal tibia and fibula. Normal proximal tibiofibular articulation. There is mild joint space narrowing of the medial femorotibial compartment. Normal lateral femorotibial compartment. Normal patellofemoral articulation. The soft tissue structures are unremarkable. RAD/Knee 4 or More Views IMPRESSION: Mild arthrosis of the medial femorotibial compartment. Electronically Signed: Octavio Tom MD at 13:28 EDT Tel , Service support ,
== END ==
PROVIDERS: PCP Physician Assistant; Referring Provider Internal Medicine Rheumatology; Visit Provider Internal Medicine Rheumatology
DX: M06.4 Inflammatory polyarthropathy (principal); M18.11 Unilateral primary osteoarthritis of first carpometacarpal joint, right hand; M21.40 Flat foot [pes planus] (acquired), unspecified foot; E11.9 Type 2 diabetes mellitus without complications; Z79.899 Other long term (current) drug therapy
CPT/HCPCS: 73564

== ENCOUNTER → 2021-08-24 09:20 | Outpatient (CLI) | payer MEDICARE, OTHER, SELFPAY ==
[2021-08-24 12:10] LABS: Absolute Lymphocyte Count 1.41 X10^3/uL (0.83-4.51); Absolute Neutrophil Count 3.7 X10^3/uL (2.0-7.7); Basophil# 0.07 X10^3/uL; Basophil% 1.2 % (0-1); Eosinophil# 0.17 X10^3/uL; Eosinophils% 2.8 % (0-5); Hematocrit 43.6 % (37-47); Hemoglobin 14.7 g/dL (12.0-15.0); Lymphocyte # 1.41 X10^3/ul (0.83-4.51); Lymphocyte % 23.2 % (19-41); Mean Corp Hgb Conc 33.7 g/dL (32-36); Mean Corpuscular Hgb 33.3 pg (27.0-32.0); Mean Corpuscular Volume 98.6 fL (81-99); Mean Platelet Vol. 11.3 fl (6.2-12.0); Monocyte# 0.67 X10^3/uL; NRBC Flagged by Analyzer 0 % (0-5); Neutrophil % 60.8 % (47-70); Platelet Count 236 K/mm3 (150-450); RBC Distribution Width SD 50.7 fl (35.1-43.9); Red Blood Count 4.42 M/mm3 (4.2-5.4); White Blood Count 6.1 K/mm3 (4.4-11.0)
[2021-08-24 13:02] LABS: ALB/GLOB Ratio 0.9 RATIO (0.9-2.4); AST(SGOT) 21 U/L (15-37); Alanine Aminotransfer ALT/SGPT 24 U/L (13-56); Albumin, Serum 3.5 g/dL (3.2-5.0); Alkaline Phosphatase 128 U/L (45-117); Anion Gap 7 (5-15); BUN 18 mg/dL (7-18); BUN/Creat Ratio 21.3 RATIO (10-20); Calcium,Total 9.1 mg/dL (8.5-10.1); Chloride 105 mmol/L (98-107); Creatinine, Serum 0.85 mg/dL (0.55-1.02); EST Glomerular Filtration Rate 69 mL/min (>60); Est Glom Filt Rate - Afr Amer 84 mL/min (>60); Globulin 3.8 g/dL (2.2-4.2); Glucose 80 mg/dL (74-106); Potassium 3.9 mmol/L (3.5-5.1); Protein, Total 7.3 g/dL (6.4-8.2); Sodium Level 142 mmol/L (136-145)
== END ==
PROVIDERS: PCP Physician Assistant; Referring Provider Internal Medicine Rheumatology; Visit Provider Internal Medicine Rheumatology
DX: M06.4 Inflammatory polyarthropathy (principal); Z79.899 Other long term (current) drug therapy; M18.11 Unilateral primary osteoarthritis of first carpometacarpal joint, right hand; M21.40 Flat foot [pes planus] (acquired), unspecified foot; E11.9 Type 2 diabetes mellitus without complications
CPT/HCPCS: 36415; 80053; 85025

== ENCOUNTER 2021-11-15 09:12 | Outpatient (CLI) | payer MEDICARE, OTHER, SELFPAY ==
[2021-11-15 10:21] LABS: Absolute Lymphocyte Count 1.47 X10^3/uL (0.83-4.51); Absolute Neutrophil Count 4.2 X10^3/uL (2.0-7.7); Basophil# 0.06 X10^3/uL; Basophil% 0.9 % (0-1); Eosinophil# 0.12 X10^3/uL; Eosinophils% 1.8 % (0-5); Hemoglobin 13.9 g/dL (12.0-15.0); Lymphocyte # 1.47 X10^3/ul (0.83-4.51); Lymphocyte % 22.7 % (19-41); Mean Corp Hgb Conc 33.1 g/dL (32-36); Mean Corpuscular Hgb 32.9 pg (27.0-32.0); Mean Corpuscular Volume 99.5 fL (81-99); Mean Platelet Vol. 11.1 fl (6.2-12.0); Monocyte# 0.62 X10^3/uL; Monocyte% 9.6 % (0-10); NRBC Flagged by Analyzer 0 % (0-5); Neutrophil # 4.19 X10^3/uL (2.7-7.7); Neutrophil % 64.5 % (47-70); Platelet Count 249 K/mm3 (150-450); RBC Distribution Width CV 13.9 % (11.6-14.6); RBC Distribution Width SD 49.7 fl (35.1-43.9); Red Blood Count 4.22 M/mm3 (4.2-5.4); White Blood Count 6.5 K/mm3 (4.4-11.0)
[2021-11-15 10:45] LABS: AST(SGOT) 22 U/L (15-37); Alanine Aminotransfer ALT/SGPT 23 U/L (13-56); Albumin, Serum 3.3 g/dL (3.2-5.0); Alkaline Phosphatase 107 U/L (45-117); Anion Gap 2 (5-15); BUN 15 mg/dL (7-18); BUN/Creat Ratio 18.2 RATIO (10-20); Calcium,Total 9.5 mg/dL (8.5-10.1); Chloride 104 mmol/L (98-107); Creatinine, Serum 0.82 mg/dL (0.55-1.02); EST Glomerular Filtration Rate 71 mL/min (>60); Est Glom Filt Rate - Afr Amer 86 mL/min (>60); Globulin 3.4 g/dL (2.2-4.2); Glucose 88 mg/dL (74-106); Protein, Total 6.7 g/dL (6.4-8.2); Sodium Level 138 mmol/L (136-145)
== END 2021-11-15 23:59 | disposition home or self-care (01) ==
LOC: MTLAB 09:16
PROVIDERS: PCP Physician Assistant; Referring Provider Internal Medicine Rheumatology; Visit Provider Internal Medicine Rheumatology
DX: M06.4 Inflammatory polyarthropathy (principal); E11.9 Type 2 diabetes mellitus without complications; Z79.899 Other long term (current) drug therapy; M18.11 Unilateral primary osteoarthritis of first carpometacarpal joint, right hand; M18.12 Unilateral primary osteoarthritis of first carpometacarpal joint, left hand; M17.0 Bilateral primary osteoarthritis of knee; M21.41 Flat foot [pes planus] (acquired), right foot
CPT/HCPCS: 36415; 80053; 85025

== ENCOUNTER 2022-02-14 13:14 | Emergency (ER) | payer MEDICARE, OTHER, SELFPAY ==
[2022-02-14 13:16] VITALS: BP 113/60; PULSE 68; RESP 14; TEMP 36.8; O2SAT 98; BMI 35.4
--- NOTE | 2022-02-14 14:04 | EDS_ITS ---
HPI History of Present Illness Chief Complaint: Lower Extremity Injury Detail of Chief Complaint: Anterior proximal left leg pain, atraumatic Informant: patient Onset/Context/Timing Onset: Weeks (3 weeks) Context: Gradual Onset Timing: Continuous Quality of Pain: Aching Location: Anterior proximal third left leg Current Severity: Mild Maximum Severity: Moderate Worsened by: Nothing specific Relieved by: Nothing Associated Symptoms Associated Symptoms: Negative for Parasthesia, Weakness and Loss of Funtion Narrative Narrative: Patient is a 76-year-old female who presents with atraumatic anterior proximal one third leg pain. She does have history rheumatoid arthritis. She does have history of osteoporosis. She states she had a prior blood clot. Patient was informed that the pain is anterior not posterior there is no concern for blood clot. She denies chest pain or shortness of breath. She has no other complaints. She apparently had fever and chills intermittently for 3 months. She denies weight loss. She had a 5 pound weight gain and feels cold. She does have history of diabetes. She denies history of diabetic neuropathy. She states her last A1c was good . She does not check her blood sugar on a regular basis. Tetanus Immunization: Unknown Prior similar symptoms: No Recent Illness/Hospitalization: No PFSH PFSH Medical History (Updated 02/14/22 @ 15:[address] Slade Mitchell MD) Depression Diabetes DVT (deep venous thrombosis) Irregular heart beat Non-smoker Osteoarthritis Pneumonia Rheumatoid arthritis Home Medications sertraline 100 mg PO DAILY 03/11/16 [History Last Taken 03/20/17 08:30] folic acid 2 mg PO DAILY 03/10/17 [History Last Taken 03/15/17 08:00 1] tramadol [Ultram] 50 mg PO Q6H PRN PRN #30 03/29/17 [Rx Last Taken Unknown] cyanocobalamin (vitamin B-12) [Vitamin B-12] 1,000 mcg PO DAILY 07/11/17 [History Last Taken Unknown] methotrexate sodium 15 mg PO Q7D 07/11/17 [History Last Taken 08/15/20] propranolol 80 mg PO DAILY 07/11/17 [History Last Taken Unknown] Restasis 1 gtt EACH EYE BID 02/14/22 [History Last Taken Unknown] hydroxychloroquine 400 mg PO DAILY 02/14/22 [History Last Taken Unknown] levothyroxine 75 mcg PO DAILY #30 cap 02/14/22 [Rx Last Taken Unknown] oxycodone-acetaminophen 1 tab PO Q6H PRN PRN 5 Days #20 tablet 02/14/22 [Rx Last Taken Unknown] Allergy/AdvReac Type Severity Reaction Status Date / Time No Known Allergies Allergy Verified 02/14/22 13:15 Surgical History (Updated 02/14/22 @ 14:24 by Luz Elena Alarcon) History of appendectomy History of cholecystectomy Social History (Updated 02/14/22 @ 14:[address] Slade Mitchell MD) household members: spouse Smoking Status: Never smoker substance use type: does not use ROS ROS ED Constitutional Constitutional ED: Reports chills; Denies fever(s), subjective, sweats or weight loss Eyes Eyes: Denies blurry vision, change in vision or diplopia ENT ENT ED: Denies ear pain, rhinorrhea or sore throat Cardiovascular Cardiovascular: Denies chest pain, palpitations or racing heartbeat Respiratory/Chest Respiratory/Chest: Denies cough, dyspnea or dyspnea on exertion Gastrointestinal Gastrointestinal: Denies abdominal pain, diarrhea, nausea or vomiting Genitourinary Genitourinary ED: Denies dysuria, hematuria or urinary frequency Musculoskeletal Musculoskeletal: Reports arthralgias; Denies back pain, myalgias or neck pain Integumentary Denies rash Neurologic Neurologic: Denies paresthesias or weakness Hematologic/Lymphatic Hematologic/Lymphatic: Denies easy bruising EXAM Physical Exam Const Vital Signs: 02/14/22 13:16 Temperature 98.2 F Temperature Source Temporal Pulse Rate 68 Respiratory Rate 14 Blood Pressure 113/60 Blood Pressure Mean 77 Pulse Ox 98 Oxygen Delivery Method Room Air Positive well nourished, well developed and obese General Appearance ED: well developed and NAD Nutritional Appearance: obese HEENT HEENT Narrative: Ears normal. Nares patent. normocephalic and atraumatic Eyes PERRL Eyes Narrative: Extract muscle intact. Sclera is anicteric. Neck full ROM and supple Thyroid: Negative for tender Resp normal respiratory effort and clear to auscultation bilaterally Cardio regular rate, regular rhythm, S1 normal heart sound, S2 normal heart sound and no murmurs Extremity normal to inspection and full ROM Extremity Narrative: Patient has pain ovation over the tibia. There is pain to palpation over the joint line. The patellas not blottable. There is no effusion. There is no laxity or pain with varus valgus stress testing. Rony's test was negative. There is no fullness or pain in the popliteal fossa. There is no pain along the distribution deep venous system. There is no leg vein distention. There is no swelling or discoloration. There is no asymmetry. General Extremety ED: Negative for cyanosis or edema General Extremity: Negative for cyanosis or edema Neuro oriented x3, CN's II-XII intact bilaterally, moves all extremities and no sensory deficits noted Sensorium / Orientation: alert Motor Exam: strength 5/5 throughout Deep Tendon Reflexes: Lt Patellar (L4): 1+ and Lt Ankle (S1): 1+ Deep Tendon Reflexes Back: Lt Patellar (L4): 1+ and Lt Ankle (S1): 1+ Plantar Reflex: Downgoing: left Psych mental status grossly normal Skin no wounds Lesions: no lesions Rashes: no rashes MDM MDM MDM Narrative Medical decision making narrative: Since the pain is anterior there is no concern for DVT. Since she does have history arthritis and joint pain will obtain x-ray. Because of the weight gain and in tolerance to cold will obtain TSH to rule out thyroid disease. CBC to assess white count. BMP to assess renal function. ESR to assess for possible inflammatory process i.e. infection versus exacerbation of her rheumatoid arthritis. Lab Data Attestation: I reviewed the patient's lab results. Lab results narrative: An elevated TSH no history hypothyroidism we will start her on levothyroxine and refer her to Dr. Arnold arc welder apprentice. She is to follow-up with a hand router operator and possibly of an MRI to determine the cause of her knee pain. Dr. Dayron Christy's name was given as well. Labs: Laboratory Results - last 24 hr 02/14/22 02/14/22 14:27 14:27 WBC 6.4 RBC 4.41 Hgb 14.6 Hct 44.0 MCV 99.8 H MCH 33.1 H MCHC 33.2 RDW Std Deviation 48.8 H RDW Coeff of Sujatha 13.2 Plt Count 222 MPV 10.8 Immature Gran % (Auto) 0.500 Neut % (Auto) 60.0 Lymph % (Auto) 26.5 [place] % (Auto) 9.6 Eos % (Auto) 2.5 Baso % (Auto) 0.9 Absolute Neuts (auto) 3.8 Absolute Lymphs (auto) 1.69 Nucleated RBC % 0 ESR 6 Sodium 138 Potassium 3.8 Chloride 106 Carbon Dioxide 29.0 Anion Gap 3 L BUN 16 Creatinine 0.81 Estim Creat Clear Calc 71.93 Est GFR (MDRD) Af Amer 88 Est GFR (MDRD) Non-Af 73 BUN/Creatinine Ratio 19.9 Glucose 84 Calcium 9.5 TSH 3.99 H Discharge Plan Triage Chief Complaint: Lower Extremity Injury ED Provider: Slade Mitchell Dx/Rx/DC Orders Clinical Impression: Acute pain of left lower extremity, Arthralgia of left lower leg, Hypothyroidism Instructions: ED Hypothyroidism, ED Pain, Acute, Uncertain Cause Prescriptions: New oxycodone-acetaminophen [oxycodone-acetaminophen] 1 TABLET tablet 1 tab PO Q6H PRN PRN (Reason: pain) 5 Days Qty: 20 RF: 0 levothyroxine 75 mcg capsule 75 mcg PO DAILY Qty: 30 RF: 0 No Action sertraline 100 MG tablet 100 mg PO DAILY RF: 0 folic acid 1 MG tablet 2 mg PO DAILY RF: 0 tramadol [Ultram] 50 MG tablet 50 mg PO Q6H PRN PRN (Reason: Pain) Qty: 30 RF: 0 cyanocobalamin (vitamin B-12) [Vitamin B-12] 1,000 MCG tablet 1,000 mcg PO DAILY RF: 0 methotrexate sodium 2.5 MG tablet 15 mg PO Q7D RF: 0 propranolol 10 MG tablet 80 mg PO DAILY RF: 0 Restasis 1 gtt EACH EYE BID RF: 0 hydroxychloroquine 200 MG tablet 400 mg PO DAILY RF: 0 Primary Care Provider: Rebecca Maher Referrals: Jeniffer Lewis MD [STAFF PHYSICIAN] - 1 Week Dayron Christy MD [STAFF PHYSICIAN] - 5-7 Days Ashutosh Monroe MD [STAFF PHYSICIAN] - 1-2 Weeks Rebecca Maher PA [Primary Care Provider] - 1 Week Disposition Disposition: Home, Self Care
[2022-02-14 14:30] LABS: Absolute Lymphocyte Count 1.69 X10^3/uL (0.83-4.51); Absolute Neutrophil Count 3.8 X10^3/uL (2.0-7.7); Basophil# 0.06 X10^3/uL; Basophil% 0.9 % (0-1); Eosinophil# 0.16 X10^3/uL; Eosinophils% 2.5 % (0-5); Hemoglobin 14.6 g/dL (12.0-15.0); Lymphocyte # 1.69 X10^3/ul (0.83-4.51); Lymphocyte % 26.5 % (19-41); Mean Corp Hgb Conc 33.2 g/dL (32-36); Mean Corpuscular Hgb 33.1 pg (27.0-32.0); Mean Corpuscular Volume 99.8 fL (81-99); Mean Platelet Vol. 10.8 fl (6.2-12.0); Monocyte# 0.61 X10^3/uL; Monocyte% 9.6 % (0-10); NRBC Flagged by Analyzer 0 % (0-5); Neutrophil # 3.83 X10^3/uL (2.7-7.7); Platelet Count 222 K/mm3 (150-450); RBC Distribution Width CV 13.2 % (11.6-14.6); RBC Distribution Width SD 48.8 fl (35.1-43.9); Red Blood Count 4.41 M/mm3 (4.2-5.4); White Blood Count 6.4 K/mm3 (4.4-11.0)
--- NOTE | 2022-02-14 14:35 | RAD_ITS ---
STUDY: X-RAY - LEFT KNEE REASON FOR EXAM: Female, 76 years old. Injury/Pain TECHNIQUE: 4 view(s) of the knee. COMPARISON: Left knee x-ray dated June 06, 2021 FINDINGS: Normal visualized distal femur. Normal visualized proximal tibia and fibula. Normal proximal tibiofibular articulation. There is no demonstrated fracture. There is moderate degenerative arthrosis of the medial femorotibial compartment with moderate joint space narrowing. Normal lateral femorotibial compartment. Normal patellofemoral articulation. There is a soft tissue prominence in the suprapatellar region suggesting a small volume joint effusion. The soft tissue structures are unremarkable. RAD/Knee 4 or More Views IMPRESSION: Degenerative arthrosis. Electronically Signed: Jim Castillo MD at 15:40 EDT ,
[2022-02-14 14:38] LABS: Erythrocyte Sedimentation Rate 6 mm/hr (0-30)
[2022-02-14 14:52] LABS: Anion Gap 3 (5-15); BUN 16 mg/dL (7-18); BUN/Creat Ratio 19.9 RATIO (10-20); Calcium,Total 9.5 mg/dL (8.5-10.1); Chloride 106 mmol/L (98-107); Creatinine, Serum 0.81 mg/dL (0.55-1.02); EST Glomerular Filtration Rate 73 mL/min (>60); Est Glom Filt Rate - Afr Amer 88 mL/min (>60); Estimated Creatinine Clearance 71.93 ml/min; Glucose 84 mg/dL (74-106); Potassium 3.8 mmol/L (3.5-5.1); Sodium Level 138 mmol/L (136-145); Thyroid Stim Hormone (TSH) 3.99 uIU/mL (0.358-3.74)
[2022-02-14 15:30] VITALS: BP 114/58; PULSE 67; RESP 14; O2SAT 99
== END 2022-02-14 15:31 | disposition home or self-care (01) ==
PROVIDERS: Emergency Provider Emergency Medicine; PCP Physician Assistant; Visit Provider Emergency Medicine
DX: M79.605 Pain in left leg (principal); M06.9 Rheumatoid arthritis, unspecified; E11.9 Type 2 diabetes mellitus without complications; E03.9 Hypothyroidism, unspecified; E66.9 Obesity, unspecified; F32.A Depression, unspecified
CPT/HCPCS: 73564; 80048; 84443; 85025; 85652; 99283; A4216

== ENCOUNTER → 2022-02-20 | Outpatient (CLI) | payer MEDICARE, OTHER, SELFPAY ==
[2022-02-20 12:32] LABS: Absolute Lymphocyte Count 1.72 X10^3/uL (0.83-4.51); Absolute Neutrophil Count 4.2 X10^3/uL (2.0-7.7); Basophil# 0.06 X10^3/uL; Basophil% 0.9 % (0-1); Eosinophil# 0.14 X10^3/uL; Eosinophils% 2.1 % (0-5); Hematocrit 44.5 % (37-47); Hemoglobin 14.7 g/dL (12.0-15.0); Lymphocyte # 1.72 X10^3/ul (0.83-4.51); Lymphocyte % 25.4 % (19-41); Mean Corpuscular Volume 99.8 fL (81-99); Mean Platelet Vol. 11.5 fl (6.2-12.0); Monocyte# 0.63 X10^3/uL; Monocyte% 9.3 % (0-10); NRBC Flagged by Analyzer 0 % (0-5); Neutrophil # 4.19 X10^3/uL (2.7-7.7); Platelet Count 246 K/mm3 (150-450); RBC Distribution Width CV 13.4 % (11.6-14.6); RBC Distribution Width SD 48.8 fl (35.1-43.9); Red Blood Count 4.46 M/mm3 (4.2-5.4); White Blood Count 6.8 K/mm3 (4.4-11.0)
[2022-02-20 12:47] LABS: ALB/GLOB Ratio 0.9 RATIO (0.9-2.4); AST(SGOT) 19 U/L (15-37); Alanine Aminotransfer ALT/SGPT 21 U/L (13-56); Albumin, Serum 3.5 g/dL (3.2-5.0); Alkaline Phosphatase 131 U/L (45-117); Anion Gap 4 (5-15); BUN 17 mg/dL (7-18); BUN/Creat Ratio 19.7 RATIO (10-20); Calcium,Total 9.5 mg/dL (8.5-10.1); Chloride 106 mmol/L (98-107); Creatinine, Serum 0.86 mg/dL (0.55-1.02); EST Glomerular Filtration Rate 67 mL/min (>60); Est Glom Filt Rate - Afr Amer 81 mL/min (>60); Globulin 3.9 g/dL (2.2-4.2); Glucose 103 mg/dL (74-106); Potassium 3.9 mmol/L (3.5-5.1); Protein, Total 7.4 g/dL (6.4-8.2); Sodium Level 140 mmol/L (136-145)
== END | disposition home or self-care (01) ==
PROVIDERS: PCP Physician Assistant; Referring Provider Internal Medicine Rheumatology; Visit Provider Internal Medicine Rheumatology
DX: M06.4 Inflammatory polyarthropathy (principal); E11.9 Type 2 diabetes mellitus without complications; M18.0 Bilateral primary osteoarthritis of first carpometacarpal joints; M17.0 Bilateral primary osteoarthritis of knee; M21.41 Flat foot [pes planus] (acquired), right foot; Z79.899 Other long term (current) drug therapy
CPT/HCPCS: 36415; 80053; 85025

== ENCOUNTER → 2022-05-18 | Outpatient (CLI) | payer MEDICARE, OTHER, SELFPAY ==
[2022-05-18 12:17] LABS: Absolute Lymphocyte Count 1.64 X10^3/uL (0.83-4.51); Absolute Neutrophil Count 3.4 X10^3/uL (2.0-7.7); Basophil# 0.06 X10^3/uL; Eosinophil# 0.13 X10^3/uL; Eosinophils% 2.2 % (0-5); Hematocrit 44.2 % (37-47); Hemoglobin 14.5 g/dL (12.0-15.0); Lymphocyte # 1.64 X10^3/ul (0.83-4.51); Lymphocyte % 28.3 % (19-41); Mean Corp Hgb Conc 32.8 g/dL (32-36); Mean Corpuscular Volume 100.5 fL (81-99); Monocyte# 0.53 X10^3/uL; Monocyte% 9.1 % (0-10); NRBC Flagged by Analyzer 0 % (0-5); Neutrophil # 3.43 X10^3/uL (2.7-7.7); Neutrophil % 59.2 % (47-70); Platelet Count 259 K/mm3 (150-450); RBC Distribution Width SD 51.8 fl (35.1-43.9); White Blood Count 5.8 K/mm3 (4.4-11.0)
[2022-05-18 12:41] LABS: ALB/GLOB Ratio 0.9 RATIO (0.9-2.4); AST(SGOT) 20 U/L (15-37); Alanine Aminotransfer ALT/SGPT 23 U/L (13-56); Albumin, Serum 3.4 g/dL (3.2-5.0); Alkaline Phosphatase 114 U/L (45-117); Anion Gap 4 (5-15); BUN 14 mg/dL (7-18); Calcium,Total 9.4 mg/dL (8.5-10.1); Chloride 106 mmol/L (98-107); Creatinine, Serum 0.78 mg/dL (0.55-1.02); EST Glomerular Filtration Rate 76 mL/min (>60); Est Glom Filt Rate - Afr Amer 92 mL/min (>60); Globulin 3.8 g/dL (2.2-4.2); Glucose 87 mg/dL (74-106); Protein, Total 7.2 g/dL (6.4-8.2); Sodium Level 141 mmol/L (136-145)
== END | disposition home or self-care (01) ==
PROVIDERS: PCP Physician Assistant; Referring Provider Internal Medicine Rheumatology; Visit Provider Internal Medicine Rheumatology
DX: M06.4 Inflammatory polyarthropathy (principal); E11.9 Type 2 diabetes mellitus without complications; Z79.899 Other long term (current) drug therapy; M18.11 Unilateral primary osteoarthritis of first carpometacarpal joint, right hand; M18.12 Unilateral primary osteoarthritis of first carpometacarpal joint, left hand; M17.0 Bilateral primary osteoarthritis of knee; M21.41 Flat foot [pes planus] (acquired), right foot
CPT/HCPCS: 36415; 80053; 85025

== ENCOUNTER → 2022-08-08 | Outpatient (CLI) | payer MEDICARE, OTHER, SELFPAY ==
[2022-08-08 12:19] LABS: Absolute Lymphocyte Count 1.44 X10^3/uL (0.83-4.51); Absolute Neutrophil Count 4.3 X10^3/uL (2.0-7.7); Basophil# 0.06 X10^3/uL; Basophil% 0.9 % (0-1); Eosinophil# 0.15 X10^3/uL; Eosinophils% 2.2 % (0-5); Hematocrit 43.9 % (37-47); Lymphocyte # 1.44 X10^3/ul (0.83-4.51); Lymphocyte % 21.5 % (19-41); Mean Corp Hgb Conc 34.2 g/dL (32-36); Mean Corpuscular Hgb 34.8 pg (27.0-32.0); Mean Corpuscular Volume 101.9 fL (81-99); Mean Platelet Vol. 10.9 fl (6.2-12.0); Monocyte# 0.71 X10^3/uL; Monocyte% 10.6 % (0-10); NRBC Flagged by Analyzer 0 % (0-5); Neutrophil # 4.32 X10^3/uL (2.7-7.7); Neutrophil % 64.5 % (47-70); Platelet Count 259 K/mm3 (150-450); RBC Distribution Width CV 13.8 % (11.6-14.6); RBC Distribution Width SD 51.9 fl (35.1-43.9); Red Blood Count 4.31 M/mm3 (4.2-5.4); White Blood Count 6.7 K/mm3 (4.4-11.0)
[2022-08-08 12:59] LABS: ALB/GLOB Ratio 0.9 RATIO (0.9-2.4); AST(SGOT) 19 U/L (15-37); Alanine Aminotransfer ALT/SGPT 22 U/L (13-56); Albumin, Serum 3.5 g/dL (3.2-5.0); Alkaline Phosphatase 110 U/L (45-117); Anion Gap 6 (5-15); BUN 16 mg/dL (7-18); BUN/Creat Ratio 21.9 RATIO (10-20); Calcium,Total 9.6 mg/dL (8.5-10.1); Chloride 106 mmol/L (98-107); Creatinine, Serum 0.73 mg/dL (0.55-1.02); EST Glomerular Filtration Rate 82 mL/min (>60); Est Glom Filt Rate - Afr Amer 99 mL/min (>60); Globulin 3.7 g/dL (2.2-4.2); Glucose 82 mg/dL (74-106); Potassium 3.9 mmol/L (3.5-5.1); Protein, Total 7.2 g/dL (6.4-8.2); Sodium Level 142 mmol/L (136-145)
== END | disposition home or self-care (01) ==
LOC: MTLAB 10:59
PROVIDERS: PCP Physician Assistant; Referring Provider Internal Medicine Rheumatology; Visit Provider Internal Medicine Rheumatology
DX: M06.4 Inflammatory polyarthropathy (principal); E11.9 Type 2 diabetes mellitus without complications; Z79.899 Other long term (current) drug therapy; M18.11 Unilateral primary osteoarthritis of first carpometacarpal joint, right hand; M18.12 Unilateral primary osteoarthritis of first carpometacarpal joint, left hand; M17.0 Bilateral primary osteoarthritis of knee; M21.41 Flat foot [pes planus] (acquired), right foot
CPT/HCPCS: 36415; 80053; 85025

== ENCOUNTER → 2022-11-05 | Outpatient (CLI) | payer MEDICARE, OTHER, SELFPAY ==
[2022-11-05 15:35] LABS: Absolute Lymphocyte Count 1.48 X10^3/uL (0.83-4.51); Absolute Neutrophil Count 3.6 X10^3/uL (2.0-7.7); Basophil# 0.06 X10^3/uL; Eosinophil# 0.18 X10^3/uL; Eosinophils% 3.1 % (0-5); Hematocrit 43.4 % (37-47); Hemoglobin 14.3 g/dL (12.0-15.0); Lymphocyte # 1.48 X10^3/ul (0.83-4.51); Lymphocyte % 25.6 % (19-41); Mean Corp Hgb Conc 32.9 g/dL (32-36); Mean Corpuscular Hgb 33.3 pg (27.0-32.0); Mean Corpuscular Volume 101.2 fL (81-99); Mean Platelet Vol. 10.9 fl (6.2-12.0); Monocyte# 0.45 X10^3/uL; Monocyte% 7.8 % (0-10); NRBC Flagged by Analyzer 0 % (0-5); Neutrophil % 62.2 % (47-70); Platelet Count 222 K/mm3 (150-450); RBC Distribution Width CV 13.9 % (11.6-14.6); RBC Distribution Width SD 51.6 fl (35.1-43.9); Red Blood Count 4.29 M/mm3 (4.2-5.4); White Blood Count 5.8 K/mm3 (4.4-11.0)
[2022-11-05 16:15] LABS: ALB/GLOB Ratio 0.9 RATIO (0.9-2.4); AST(SGOT) 20 U/L (15-37); Alanine Aminotransfer ALT/SGPT 22 U/L (13-56); Albumin, Serum 3.3 g/dL (3.2-5.0); Alkaline Phosphatase 107 U/L (45-117); Anion Gap 5 (5-15); BUN 11 mg/dL (7-18); BUN/Creat Ratio 8.9 RATIO (10-20); Calcium,Total 9.8 mg/dL (8.5-10.1); Chloride 108 mmol/L (98-107); Creatinine, Serum 1.23 mg/dL (0.55-1.02); EST Glomerular Filtration Rate 45 mL/min (>60); Est Glom Filt Rate - Afr Amer 54 mL/min (>60); Globulin 3.7 g/dL (2.2-4.2); Glucose 129 mg/dL (74-106); Potassium 3.7 mmol/L (3.5-5.1); Sodium Level 143 mmol/L (136-145)
== END | disposition home or self-care (01) ==
PROVIDERS: PCP Physician Assistant; Referring Provider Internal Medicine Rheumatology; Visit Provider Internal Medicine Rheumatology
DX: M06.4 Inflammatory polyarthropathy (principal); E11.9 Type 2 diabetes mellitus without complications; Z79.899 Other long term (current) drug therapy; M17.0 Bilateral primary osteoarthritis of knee; M21.41 Flat foot [pes planus] (acquired), right foot; M18.0 Bilateral primary osteoarthritis of first carpometacarpal joints
CPT/HCPCS: 36415; 80053; 85025

== ENCOUNTER → 2022-12-11 | Outpatient (CLI) | payer MEDICARE, OTHER, SELFPAY ==
[2022-12-11 12:47] LABS: ALB/GLOB Ratio 0.9 RATIO (0.9-2.4); AST(SGOT) 21 U/L (15-37); Alanine Aminotransfer ALT/SGPT 25 U/L (13-56); Albumin, Serum 3.6 g/dL (3.2-5.0); Alkaline Phosphatase 106 U/L (45-117); Anion Gap 4 (5-15); BUN 17 mg/dL (7-18); BUN/Creat Ratio 19.9 RATIO (10-20); Calcium,Total 9.7 mg/dL (8.5-10.1); Chloride 108 mmol/L (98-107); Creatinine, Serum 0.86 mg/dL (0.55-1.02); EST Glomerular Filtration Rate 68 mL/min (>60); Est Glom Filt Rate - Afr Amer 82 mL/min (>60); Globulin 3.8 g/dL (2.2-4.2); Glucose 106 mg/dL (74-106); Protein, Total 7.4 g/dL (6.4-8.2); Sodium Level 142 mmol/L (136-145)
== END | disposition home or self-care (01) ==
LOC: MTLAB 10:21
PROVIDERS: PCP Physician Assistant; Referring Provider Internal Medicine Rheumatology; Visit Provider Internal Medicine Rheumatology
DX: M06.4 Inflammatory polyarthropathy (principal); Z79.899 Other long term (current) drug therapy
CPT/HCPCS: 36415; 80053

== ENCOUNTER → 2023-02-04 | Outpatient (CLI) | payer MEDICARE, OTHER, SELFPAY ==
[2023-02-04 16:04] LABS: Absolute Lymphocyte Count 1.75 X10^3/uL (0.83-4.51); Absolute Neutrophil Count 2.7 X10^3/uL (2.0-7.7); Basophil# 0.07 X10^3/uL; Basophil% 1.3 % (0-1); Eosinophil# 0.17 X10^3/uL; Eosinophils% 3.1 % (0-5); Hematocrit 45.3 % (37-47); Lymphocyte # 1.75 X10^3/ul (0.83-4.51); Lymphocyte % 32.4 % (19-41); Mean Corp Hgb Conc 33.1 g/dL (32-36); Mean Corpuscular Volume 99.6 fL (81-99); Mean Platelet Vol. 10.9 fl (6.2-12.0); Monocyte# 0.67 X10^3/uL; Monocyte% 12.4 % (0-10); NRBC Flagged by Analyzer 0 % (0-5); Neutrophil # 2.73 X10^3/uL (2.7-7.7); Neutrophil % 50.6 % (47-70); Platelet Count 205 K/mm3 (150-450); RBC Distribution Width CV 13.4 % (11.6-14.6); RBC Distribution Width SD 49.1 fl (35.1-43.9); Red Blood Count 4.55 M/mm3 (4.2-5.4); White Blood Count 5.4 K/mm3 (4.4-11.0)
[2023-02-04 16:28] LABS: ALB/GLOB Ratio 0.8 RATIO (0.9-2.4); AST(SGOT) 20 U/L (15-37); Alanine Aminotransfer ALT/SGPT 24 U/L (13-56); Albumin, Serum 3.4 g/dL (3.2-5.0); Alkaline Phosphatase 112 U/L (45-117); Anion Gap 6 (5-15); BUN 17 mg/dL (7-18); BUN/Creat Ratio 19.3 RATIO (10-20); Calcium,Total 9.3 mg/dL (8.5-10.1); Chloride 107 mmol/L (98-107); Creatinine, Serum 0.88 mg/dL (0.55-1.02); EST Glomerular Filtration Rate 66 mL/min (>60); Est Glom Filt Rate - Afr Amer 79 mL/min (>60); Globulin 4.2 g/dL (2.2-4.2); Glucose 82 mg/dL (74-106); Potassium 3.8 mmol/L (3.5-5.1); Protein, Total 7.6 g/dL (6.4-8.2); Sodium Level 142 mmol/L (136-145)
== END | disposition home or self-care (01) ==
LOC: MTLAB 12:32
PROVIDERS: PCP Physician Assistant; Referring Provider Internal Medicine Rheumatology; Visit Provider Internal Medicine Rheumatology
DX: M06.4 Inflammatory polyarthropathy (principal); Z79.899 Other long term (current) drug therapy
CPT/HCPCS: 36415; 80053; 85025

== ENCOUNTER → 2023-02-25 | Outpatient (CLI) | payer MEDICARE, OTHER, SELFPAY ==
[2023-02-25 12:03] LABS: Absolute Lymphocyte Count 1.38 X10^3/uL (0.83-4.51); Absolute Neutrophil Count 3.1 X10^3/uL (2.0-7.7); Basophil# 0.05 X10^3/uL; Basophil% 0.9 % (0-1); Eosinophil# 0.16 X10^3/uL; Eosinophils% 2.9 % (0-5); Hematocrit 45.2 % (37-47); Hemoglobin 15.1 g/dL (12.0-15.0); Lymphocyte # 1.38 X10^3/ul (0.83-4.51); Lymphocyte % 25.2 % (19-41); Mean Corp Hgb Conc 33.4 g/dL (32-36); Mean Corpuscular Volume 98.9 fL (81-99); Mean Platelet Vol. 10.9 fl (6.2-12.0); Monocyte# 0.74 X10^3/uL; Monocyte% 13.5 % (0-10); NRBC Flagged by Analyzer 0 % (0-5); Neutrophil # 3.13 X10^3/uL (2.7-7.7); Neutrophil % 57.1 % (47-70); Platelet Count 227 K/mm3 (150-450); RBC Distribution Width CV 14.1 % (11.6-14.6); RBC Distribution Width SD 50.5 fl (35.1-43.9); Red Blood Count 4.57 M/mm3 (4.2-5.4); White Blood Count 5.5 K/mm3 (4.4-11.0)
[2023-02-25 12:22] LABS: AST(SGOT) 21 U/L (15-37); Alanine Aminotransfer ALT/SGPT 22 U/L (13-56); Albumin, Serum 3.5 g/dL (3.2-5.0); Alkaline Phosphatase 125 U/L (45-117); Anion Gap -1 (5-15); BUN 20 mg/dL (7-18); BUN/Creat Ratio 27.8 RATIO (10-20); Calcium,Total 9.3 mg/dL (8.5-10.1); Chloride 110 mmol/L (98-107); Creatinine, Serum 0.72 mg/dL (0.55-1.02); EST Glomerular Filtration Rate 83 mL/min (>60); Est Glom Filt Rate - Afr Amer 101 mL/min (>60); Globulin 3.6 g/dL (2.2-4.2); Glucose 89 mg/dL (74-106); Potassium 3.9 mmol/L (3.5-5.1); Protein, Total 7.1 g/dL (6.4-8.2); Sodium Level 137 mmol/L (136-145)
== END | disposition home or self-care (01) ==
LOC: MTLAB 10:29
PROVIDERS: PCP Physician Assistant; Referring Provider Internal Medicine Rheumatology; Visit Provider Internal Medicine Rheumatology
DX: M06.4 Inflammatory polyarthropathy (principal); Z79.899 Other long term (current) drug therapy
CPT/HCPCS: 36415; 80053; 85025

== ENCOUNTER → 2023-06-03 | Outpatient (CLI) | payer MEDICARE, OTHER, SELFPAY ==
[2023-06-03 12:10] LABS: Absolute Lymphocyte Count 1.61 X10^3/uL (0.83-4.51); Absolute Neutrophil Count 4.2 X10^3/uL (2.0-7.7); Basophil# 0.06 X10^3/uL; Basophil% 0.9 % (0-1); Eosinophil# 0.18 X10^3/uL; Eosinophils% 2.6 % (0-5); Hematocrit 43.2 % (37-47); Hemoglobin 14.3 g/dL (12.0-15.0); Lymphocyte # 1.61 X10^3/ul (0.83-4.51); Lymphocyte % 23.5 % (19-41); Mean Corp Hgb Conc 33.1 g/dL (32-36); Mean Corpuscular Hgb 33.6 pg (27.0-32.0); Mean Corpuscular Volume 101.4 fL (81-99); Mean Platelet Vol. 10.9 fl (6.2-12.0); Monocyte# 0.75 X10^3/uL; Monocyte% 10.9 % (0-10); NRBC Flagged by Analyzer 0 % (0-5); Neutrophil # 4.22 X10^3/uL (2.7-7.7); Neutrophil % 61.7 % (47-70); Platelet Count 245 K/mm3 (150-450); RBC Distribution Width SD 51.9 fl (35.1-43.9); Red Blood Count 4.26 M/mm3 (4.2-5.4); White Blood Count 6.9 K/mm3 (4.4-11.0)
[2023-06-03 12:52] LABS: ALB/GLOB Ratio 0.9 RATIO (0.9-2.4); AST(SGOT) 22 U/L (15-37); Alanine Aminotransfer ALT/SGPT 22 U/L (13-56); Albumin, Serum 3.4 g/dL (3.2-5.0); Alkaline Phosphatase 164 U/L (45-117); Anion Gap 6 (5-15); BUN 15 mg/dL (7-18); BUN/Creat Ratio 19.6 RATIO (10-20); Calcium,Total 9.9 mg/dL (8.5-10.1); Chloride 106 mmol/L (98-107); Creatinine, Serum 0.77 mg/dL (0.55-1.02); EST Glomerular Filtration Rate 77 mL/min (>60); Est Glom Filt Rate - Afr Amer 93 mL/min (>60); Globulin 3.8 g/dL (2.2-4.2); Glucose 91 mg/dL (74-106); Potassium 3.8 mmol/L (3.5-5.1); Protein, Total 7.2 g/dL (6.4-8.2); Sodium Level 141 mmol/L (136-145)
== END | disposition home or self-care (01) ==
LOC: MTRAD 11:11 → MTLAB 11:13
PROVIDERS: PCP Physician Assistant; Referring Provider Internal Medicine Rheumatology; Visit Provider Internal Medicine Rheumatology
DX: M06.4 Inflammatory polyarthropathy (principal); Z79.899 Other long term (current) drug therapy
CPT/HCPCS: 36415; 80053; 85025

== ENCOUNTER → 2023-11-15 | Outpatient (CLI) | payer MEDICARE, SELFPAY ==
[2023-11-15 17:54] LABS: Absolute Lymphocyte Count 1.75 X10^3/uL (0.83-4.51); Absolute Neutrophil Count 3.8 X10^3/uL (2.0-7.7); Basophil# 0.06 X10^3/uL; Basophil% 0.9 % (0-1); Eosinophil# 0.21 X10^3/uL; Eosinophils% 3.3 % (0-5); Hematocrit 44.4 % (37-47); Hemoglobin 14.6 g/dL (12.0-15.0); Lymphocyte # 1.75 X10^3/ul (0.83-4.51); Lymphocyte % 27.2 % (19-41); Mean Corp Hgb Conc 32.9 g/dL (32-36); Mean Corpuscular Hgb 32.8 pg (27.0-32.0); Mean Corpuscular Volume 99.8 fL (81-99); Mean Platelet Vol. 11.2 fl (6.2-12.0); Monocyte# 0.65 X10^3/uL; Monocyte% 10.1 % (0-10); NRBC Flagged by Analyzer 0 % (0-5); Neutrophil # 3.75 X10^3/uL (2.7-7.7); Neutrophil % 58.2 % (47-70); Platelet Count 233 K/mm3 (150-450); RBC Distribution Width CV 14.6 % (11.6-14.6); RBC Distribution Width SD 53.1 fl (35.1-43.9); Red Blood Count 4.45 M/mm3 (4.2-5.4); White Blood Count 6.4 K/mm3 (4.4-11.0)
[2023-11-15 18:07] LABS: AST(SGOT) 20 U/L (15-37); Alanine Aminotransfer ALT/SGPT 23 U/L (13-56); Albumin, Serum 3.6 g/dL (3.2-5.0); Alkaline Phosphatase 109 U/L (45-117); Anion Gap 2 (5-15); BUN 15 mg/dL (7-18); BUN/Creat Ratio 20.6 RATIO (10-20); Calcium,Total 9.6 mg/dL (8.5-10.1); Chloride 108 mmol/L (98-107); Creatinine, Serum 0.73 mg/dL (0.55-1.02); EST Glomerular Filtration Rate 82 mL/min (>60); Est Glom Filt Rate - Afr Amer 99 mL/min (>60); Globulin 3.5 g/dL (2.2-4.2); Glucose 79 mg/dL (74-106); Potassium 3.8 mmol/L (3.5-5.1); Protein, Total 7.1 g/dL (6.4-8.2); Sodium Level 141 mmol/L (136-145)
--- OUTSIDE RECORDS SUMMARY | 2023-11-15 18:31 | XMS RPT_ITS | CCD ---
Author Name Unknown Address [address] [facility] [address] [place] [address] Organization [facility] Care Team Providers Care Goodwill Representative Name Role Phone Rebecca Maher PA-C Primary Care Provider Rebecca MAHER Referring Unavailable Rebecca MAHER Primary Care Unavailable Rebecca MAHER Attending Unavailable Rebecca MAHER Primary Care Unavailable Rebecca MAHER Referring Unavailable Rebecca MAHER Primary Care Unavailable Rebecca MAEHR Referring Unavailable Rebecca MAHER Primary Care Unavailable Rebecca MAHER Primary Care Unavailable Rebecca MAHER Primary Care Unavailable Rebecca MAHER Attending Unavailable Medications Completed/Discontinued Medications Medication Drug Class(es) Dates Sig (Normalized) Sig (Original) cycloSPORINE 0.5 mg/ml ophthalmic suspension (11 sources) Calcineurin Inhibitor Immunosuppressant Start: 03-04-2017 take 2 drop(s) into the eye(s) four times daily RESTASIS 0.05 % ophthalmic emulsion Use 2 Drops in both eyes four times daily. 0 03/04/2017 Active Problems Active Problems Problem Classification Problem Date Documented Da te Episodic/Chronic Anxiety disorders (14 sources) Generalized anxiety disorder; Translations: [Generalized anxiety disorder] Onset: 11-02-2010 12-15-2021 Chronic Cataract (11 sources) Bilateral cortical age-related cataract eyes; Translations: [Cortical age-related cataract, bilateral] Onset: 10-17-2018 10-17-2018 Chronic Chronic obstructive pulmonary disease and bronchiectasis (15 sources) Chronic obstructive lung disease; Translations: [Chronic obstructive pulmonary disease, unspecified] Onset: 11-29-2010 Chronic Disorders of lipid metabolism (8 sources) Pure hypercholesterolemi a; Translations: [Pure hypercholesterolemi a, unspecified] Onset: 09-04-2005 09-04-2005 Chronic Essential hypertension (8 sources) Essential hypertension; Translations: [Essential (primary) hypertension] Onset: 05-17-2014 Chronic Immunizations and screening for infectious disease (4 sources) Patient encounter status; Translations: [Encounter for immunization] Onset: 08-19-2023 06-21-2023 Episodic Malaise and fatigue (2 sources) Fatigue; Translations: [Other fatigue] Onset: 06-05-2023 Episodic Mood disorders (16 sources) Recurrent major depression in full remission; Translations: [Major depressive disorder, recurrent, in full remission] Onset: 12-23-2013 Chronic Other nervous system disorders (1 source) Inflammatory polyneuropathy, unspecified; Translations: [Inflammatory neuropathy (HCC)] Onset: 08-19-2023 Chronic Other non-traumatic joint disorders (1 source) Swelling of knee joint; Translations: [Effusion, right knee] Episodic Other nutritional; endocrine; and metabolic disorders (14 sources) Cholesterol level - finding; Translations: [Lipoprotein deficiency] Onset: 11-09-2014 Chronic Other nutritional; endocrine; and metabolic disorders (13 sources) Obese class II; Translations: [Obesity, unspecified] Onset: 10-01-2018 10-01-2018 Chronic Other nutritional; endocrine; and metabolic disorders (1 source) Lipoprotein deficiency; 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)] Onset: 06-21-2015 Chronic Other nutritional; endocrine; and metabolic disorders (1 source) Obesity, unspecified; Translations: [Obesity, Class II, BMI 35-39.9] Onset: 10-01-2018 Chronic Retinal detachments; defects; vascular occlusion; and retinopathy (13 sources) Nonexudative age-related macular degeneration; Translations: [Nonexudative age-related macular degeneration, bilateral, early dry stage] Onset: 10-17-2018 10-17-2018 Chronic Rheumatoid arthritis and related disease (16 sources) Rheumatoid arthritis of multiple joints; Translations: [Rheumatoid arthritis with rheumatoid factor of multiple sites without organ or systems involvement] Onset: 07-12-2010 Chronic Thyroid disorders (3 sources) Subclinical hypothyroidism; Translations: [Other specified hypothyroidism] Onset: 06-21-2023 Chronic Past or Other Problems Problem Classification Problem Date Documented Da te Episodic/Chronic Cardiac dysrhythmias (15 sources) Palpitations; Translations: [Palpitations] Onset: 05-19-2012 Episodic Diabetes mellitus without complication (16 sources) Prediabetes; Translations: [Prediabetes] Onset: 07-17-2005 Episodic Nutritional deficiencies (12 sources) Cobalamin deficiency; Translations: [Deficiency of other specified B group vitamins] Onset: 07-12-2010 09-18-2021 Episodic Other screening for suspected conditions (not mental disorders or infectious disease) (2 sources) Raised TSH level; Translations: [Other specified abnormal findings of blood chemistry] Onset: 12-14-2022 Episodic Phlebitis; thrombophlebitis and thromboembolism (11 sources) H/O: Deep vein thrombosis; Translations: [Personal history of other venous thrombosis and embolism] Onset: 03-31-2018 12-07-2020 Episodic Results Test Name Value Interpretation Reference Range Facil ity Vital Signs Date Time Vital Sign Value Performing Clinician Bhavani lewis 06-21-2023 07:56-0400 Body weight 81.65 kg NA Maher PA-C Work Phone: [facility] 06-21-2023 07:56-0400 Diastolic blood pressure 80 mm[Hg] NA Maher PA-C Work Phone: [facility] 06-21-2023 07:56-0400 Heart rate 72 /min NA Maher PA-C Work Phone: [facility] 06-21-2023 07:56-0400 Respiratory rate 16 /min NA Maher PA-C Work Phone: [facility] 06-21-2023 07:56-0400 SaO2% (BldA) [Mass fraction] 97 % NA Maher PA-C Work Phone: [facility] 06-21-2023 07:56-0400 Systolic blood pressure 128 mm[Hg] NA Maher PA-C Work Phone: [facility] 12-17-2022 08:06-0400 Body weight 83.01 kg NA Maher PA-C Work Phone: [facility] 12-17-2022 08:06-0400 Diastolic blood pressure 60 mm[Hg] NA Maher PA-C Work Phone: [facility] 12-17-2022 08:06-0400 Heart rate 81 /min NA Maher PA-C Work Phone: [facility] 12-17-2022 08:06-0400 Respiratory rate 16 /min NA Maher PA-C Work Phone: [facility] 12-17-2022 08:06-0400 SaO2% (BldA) [Mass fraction] 96 % NA Maher PA-C Work Phone: [facility] 12-17-2022 08:06-0400 Systolic blood pressure 124 mm[Hg] NA Maher PA-C Work Phone: [facility] 03-15-2022 09:53-0400 Body weight 79.83 kg NA Maher PA-C Work Phone: [facility] 03-15-2022 09:53-0400 Diastolic blood pressure 60 mm[Hg] NA Maher PA-C Work Phone: [facility] 03-15-2022 09:53-0400 Heart rate 67 /min NA Maher PA-C Work Phone: [facility] 03-15-2022 09:53-0400 Respiratory rate 16 /min NA Maher PA-C Work Phone: [facility] 03-15-2022 09:53-0400 SaO2% (BldA) [Mass fraction] 96 % NA Maher PA-C Work Phone: [facility] 03-15-2022 09:53-0400 Systolic blood pressure 124 mm[Hg] NA Maher PA-C Work Phone: [facility] 12-11-2021 09:19-0400 Body weight 80.74 kg NA Maher PA-C Work Phone: [facility] 12-11-2021 09:19-0400 Diastolic blood pressure 70 mm[Hg] NA Maher PA-C Work Phone: [facility] 12-11-2021 09:19-0400 Heart rate 63 /min NA Maher PA-C Work Phone: [facility] 12-11-2021 09:19-0400 Respiratory rate 16 /min KIRK Maher PA-C Work Phone: [facility] 12-11-2021 09:19-0400 SaO2% (BldA) [Mass fraction] 93 % NA Maher PA-C Work Phone: [facility] 12-11-2021 09:19-0400 Systolic blood pressure 122 mm[Hg] KIRK Maher PA-C Work Phone: [facility] Encounters Encounter Date Encounter Type Care Provider Facility Start: 08-20-2023 Telephone encounter Rebecca Tino Maher PA-C Work Phone: [facility] Procedures Date Procedure Procedure Detail Performing Clinician Start: 06-21-2023 INFLUENZA VACCINE, P RSV FREE, AGE 65+ YR, HIGH DOSE, QUADRIVALENT (FLUZONE HIGH-DOSE) Rebecca SAL-[place] Work Phone: Plan of Treatment Date Care Activity Detail Author Start: 08-19-2024 Hepatitis B screening Urine Al bumin:Creatinine Ratio [facility] Start: 06-21-2024 Annual PCP Team Designer Writer michael Disease Visit Annual PCP Team Chronic Disease Visit [facility] Start: 06-21-2024 Covid-19 Vaccine (#1) Covid-19 Vacci ne (#1) [facility] Immunizations Immunization Date Immunization Notes Care Provider Fa gonsalo 07-23-2023 hepatitis B vaccine, adult dosage Mi Nurse Work Phone: [facility] Work Phone: 06-21-2023 hepatitis B vaccine, adult dosage KIRK SAL-C Work Phone: [facility] 06-21-2023 influenza (HD-IIV4) vaccine, age 65+ yr, high dose, quadrivalent, PF (FLUZONE HIGH-DOSE) KIRK SAL-C Work Phone: [facility] 06-18-2022 influenza (HD-IIV4) vaccine, age 65+ yr, high dose, quadrivalent, PF (FLUZONE HIGH-DOSE) KIRK Maher PA-C Work Phone: [facility] 06-18-2022 influenza virus vacc ine, unspecified formulation NA Maher PA-C Work Phone: [facility] 06-12-2021 influenza, high-dose , quadrivalent vaccine (FLUZONE HIGH DOSE QUADRIVALENT) NA Maher PA-C Work Phone: [facility] 06-10-2020 influenza, high-dose , quadrivalent vaccine (FLUZONE HIGH DOSE QUADRIVALENT) NA Maher PA-C Work Phone: [facility] Work Phone: 06-23-2019 influenza, high dose seasonal, preservative-free NA Maher PA-C Work Phone: [facility] 06-30-2018 influenza, high dose seasonal, preservative-free NA Maher PA-C Work Phone: [facility] 05-26-2018 influenza, high dose seasonal, preservative-free NA Maher PA-C Work Phone: [facility] 05-20-2017 influenza, high dose seasonal, preservative-free NA Maher PA-C Work Phone: [facility] 06-28-2016 influenza, high dose seasonal, preservative-free NA Maher PA-C Work Phone: [facility] 06-23-2016 influenza, seasonal, injectable, preservative free NA Maher PA-C Work Phone: [facility] 06-23-2015 influenza, high dose seasonal, preservative-free NA Maher PA-C Work Phone: [facility] 11-09-2014 pneumococcal conjuga te vaccine, 13 valent NA Maher PA-C Work Phone: [facility] 07-01-2014 influenza, seasonal, injectable NA Maher PA-C Work Phone: [facility] 07-04-2013 influenza virus vacc ine, unspecified formulation NA Maher PA-C Work Phone: [facility] 06-14-2012 influenza virus vacc ine, unspecified formulation NA Maher PA-C Work Phone: [facility] Work Phone: 06-06-2011 influenza virus vacc ine, whole virus KIRK Maher PA-C Work Phone: [facility] 08-14-2010 pneumococcal polysaccharide vaccine, 23 valent KIRK Maher PA-C Work Phone: [facility] 08-14-2010 tetanus and diphther ia toxoids, adsorbed, preservative free, for adult use (2 Lf of tetanus toxoid and 2 Lf of diphtheria toxoid) NA Gunnar PA-C Work Phone: [facility] 09-23-2007 pneumococcal polysaccharide vaccine, 23 valent KIRK Maher PA-C Work Phone: [facility] Work Phone: Payers Date Payer Category Payer Medicare [id number] 2020 Unknown MMO MMO MEDICARE SUPPLEMENT [id number] 2020-Present [phone] [address] [place] [address] Indemnity [id number] 2020 Unknown MMO MMO MEDICARE SUPPLEMENT [id number] 2020-Present [phone] [address] [place] [address] Indemnity [id number] 2013 Medicare MEDICARE MEDICAR E A AND B [id number] 2013-Present [phone] [place] [address] Medicare [id number] 2013 Medicare MEDICARE MEDICAR E A AND B [id number] 2013-Present [phone] [place] [address] Medicare [id number] 2013 Medicare [id number] Social History Date Type Detail Facility Start: 07-30-2011 End: 06-18-2022 Tobacco smoking status NHIS Never smoked tobacco [facility] Start: 12-11-2021 End: 06-21-2023 Alcohol intake Current non-drinker of alcohol (finding) [facility] Start: 1945 Sex Assigned At Not on file [facility] Start: 07-30-2011 End: 06-18-2022 Tobacco use and exposure Smokeless tobacco non-user [facility] Work Phone: Start: 12-17-2022 End: 06-21-2023 History of [address] [facility] Work Phone: Start: 12-17-2022 End: 06-21-[address] [facility] Work Phone: Adult Depression Screening Assessment 5 [facility] Work Phone: Clinical Notes 03-14-2016 to 08-21-2023 Telephone Encounter - Jacqueline Mae LPN - 08/21/2023 10:54 AM ESTTelephone Encounter - Rohini Chi Ma - 08/20/2023 10:45 AM ESTTelephone Encounter - Rohini Chi Ma - 08/20/2023 9:44 AM EST Note Date & Type Note Facility 08-21-2023 Miscellaneous Notes Patient returned call and went over results, notes from Horace SAL not fully understanding but aware lab will need rechecked. Left message for patient to return call. Rohini Chi Ma ----- Message from Rebecca Maher PA-C sent at 08/20/2023 6:22 AM EST ----- Please advise CBC shows mildly elevated hgb. Will need to recheck at next visit, likely electronic variance on the counter but MCV also elevated. Rebecca Ham PA-C documented in this encounter [facility] 07-23-2023 Note HNO ID: [id number] Author: Yakelin Bledsoe LPN Service: ? Author Type: ? Type: Progress Notes Filed: 07/23/2023 9:47 AM Note Text: Patient presents for Hepatitis B vaccine. Denies any problems at this time. Tolerated injection well. Yakelin Bledsoe LPN [facility] 07-23-2023 History of Present illness Narrative Patient presents for Hepatitis B vaccine. Denies any problems at this time. Tolerated injection well. Yakelin Bledsoe LPN documented in this encounter [facility] 06-21-2023 Miscellaneous Notes The following approved medication requests have been transmitted electronically. Requested Prescriptions Signed Prescriptions Disp Refills sertraline (ZOLOFT) 100 mg tablet 135 tablet 3 Sig: Take 1.5 tablets by mouth once daily. Authorizing Provider: Rebecca MAHER PA-C Patient reports the sertraline capsules will cost her > $400. Pharmacist advised her to have pcp re-order the tablets to take 1.5 tabs daily. Pended. documented in this encounter [facility] 06-21-2023 Note HNO ID: [id number] Author: Rebecca Maher PA-C Service: ? Author Type: Physician Public Transportation Inspector Type: Progress Notes Filed: 06/21/2023 12:51 PM Note Text: 77 year old female with c/o here for follow up No current concerns Essential hypertension (primary encounter diagnosis) Current meds: Propranolol LA 80mg daily Patient is compliant with meds No Monitors bp at home: No. If yes, readings: Denies side effects: No. Chest pain: No. Dyspnea: No. Notes anxiety at times, gets a loittle SOB during those times. Edema: No. Palpitations: No. Syncope: No. Headache: No. Dizziness: No. Last 3 Encounter BP Readings: Date: BP: 06/21/2023 128/80 12/17/2022 124/60 06/18/2022 118/62 Last 2 Encounter Wt Readings: Date: Wt: 06/21/2023 81.6 kg (180 lb) 12/17/2022 83 kg (183 lb) Low HDL Pure hypercholesterolemia Current medication none Taking medication consistently No Observing low cholesterol high fiber diet Yes Muscle aches No Stomach complaints/ diarrhea No Last 2 Lipids: Component Latest Ref Rng AND Units 11/16/2019 05/10/2022 Cholesterol, Total <200 mg/dL 150 153 Triglyceride <150 mg/dL 74 119 HDL Cholesterol >39 mg/dL 66 66 LDL Cholesterol <100 mg/dL 69 63 Non HDL Cholesterol <130 mg/dL 84 87 Fasting Time hrs 12 12 VLDL Cholesterol <30 mg/dL 15 24 TC:HDL Ratio <5.10 2.27 2.32 LDL:HDL Ratio <2.54 1.05 0.95 Prediabetes Hemoglobin A1C (%) Date Value 06/05/2023 5.2 05/10/2022 5.3 12/12/2020 5.3 11/16/2019 5.1 ) Component Latest Ref Rng AND Units 11/16/2019 05/10/2022 Creatinine, Ur Random (UCRR) 20.0 - 300.0 mg/dL 53.6 23.5 Albumin, Urine Random mg/L <12.0 <12.0 Albumin/Creat Ratio Not calculated Hypothyroidism Current medication: Levothyroxine 75mcg daily AC started in ER: took for one month and stopped. Had thyroid Taking as directed on an empty stomach? N/a. Thyroid pain: No. Mass effect: No. Change in energy level/ fatigue? Yes. Has always been tired but not this tired Sleep disturbance: confirms again : No trouble sleeping. says excessively tired, probably over last year. Falls asleep when she sits down. Temperature Intolerance: cold Yes, hot Yes. Goes from freezing to sweating year round. In females, menstrual cycle issues? N/a, no post menopausal bleeding. MIKAELA age 27 Change in bowel habits? No. 1-3 /day Constipation? No. If yes: Diarrhea? No. If yes: Weight changes?none. Memory issues: Notes some memory issues: takes time to recall names, past events. Diaphoresis: Yes. Numbness, tingling none Radiological imaging with contrast dyes within the last 3 months? No. History of radiation exposure to head or neck area? No. Change in hair or skin? No. If yes: Other symptoms: TSH Date Value 12/14/2022 3.770 mIU/L 05/10/2022 1.860 mIU/L 06/14/2017 2.410 uU/mL ) Obesity Vitals 06/18/2022 12/17/2022 06/21/2023 WEIGHT in POUNDS 177 lb 183 lb 180 lb WEIGHT in KILOGRAMS 80.287 kg 83.008 kg 81.647 kg HEIGHT in INCHES Chronic obstructive pulmonary disease, unspecified copd type ([facility]) Fan Mail Editor: none. Interval history: none. Chronic cough intermittent, no wheezing, no PND Current medications: none Worsening shortness of breath: No. Cough: No. Wheezing: No. Smoking: No. Compliant with medications: n/a. Using rescue inhaler: 0. Early dry stage nonexudative age-related macular degeneration of both eyes Cataract surgery both sides Restasis Once a year for follow up: all stable Obesity, class ii, bmi 35-39.9 Vitals 06/14/2021 12/11/2021 03/15/2022 WEIGHT in POUNDS 180 lb 6.4 oz 178 lb 176 lb Kory (generalized anxiety disorder) Recurrent major depressive disorder, in full remission (hcc) Palpitations Current meds: Sertraline 150mg daily Good days and bad days Interest in life I guess it's okay Feels increase in sertraline has helped. 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 Cantor Palpitations resolved Change in medication No. Currently in counseling? No. Any Medication side effects? Yes. Sleep disturbance? good. Loss of interest in usual pleasurable activities?No. Sense of guilt, shame, low self esteem?No. Energy: low Trouble with concentration? No. Changes in appetite? No. Changes in weight? No Psychomotor retardation: No Suicidal thoughts: No Racing thoughts? No. Interpersonal/ family conflicts? No. Irritability? No. Rheumatoid Arthritits Current medications: Folic acid 1mg daily MTX 2.5mg 8 tab daily HCQ 2 tabs daily Tramadol 50mg daily, not daily Follows with rheum Dr. Lewis 02/25/2023 last visit Stable on medications. Arthritis has been flaring. Gets right thumb inject monthly which helps. Back on MTX HISTORIES FAMILY HISTORY Problem Relation Age of Onset Diabetes Paternal Grandmother Hear (more content not included)... [facility] 06-21-2023 History of Present illness Narrative 77 year old female with c/o here for follow up No current concerns Essential hypertension (primary encounter diagnosis) Current meds: Propranolol LA 80mg daily Patient is compliant with meds No Monitors bp at home: No. If yes, readings: Denies side effects: No. Chest pain: No. Dyspnea: No. Notes anxiety at times, gets a loittle SOB during those times. Edema: No. Palpitations: No. Syncope: No. Headache: No. Dizziness: No. Last 3 Encounter BP Readings: Date: BP: 06/21/2023 128/80 12/17/2022 124/60 06/18/2022 118/62 Last 2 Encounter Wt Readings: Date: Wt: 06/21/2023 81.6 kg (180 lb) 12/17/2022 83 kg (183 lb) Low HDL Pure hypercholesterolemia Current medication none Taking medication consistently No Observing low cholesterol high fiber diet Yes Muscle aches No Stomach complaints/ diarrhea No Last 2 Lipids: Component Latest Ref Rng & Units 11/16/2019 05/10/2022 Cholesterol, Total <200 mg/dL 150 153 Triglyceride <150 mg/dL 74 119 HDL Cholesterol >39 mg/dL 66 66 LDL Cholesterol <100 mg/dL 69 63 Non HDL Cholesterol <130 mg/dL 84 87 Fasting Time hrs 12 12 VLDL Cholesterol <30 mg/dL 15 24 TC:HDL Ratio <5.10 2.27 2.32 LDL:HDL Ratio <2.54 1.05 0.95 Prediabetes Hemoglobin A1C (%) Date Value 06/05/2023 5.2 05/10/2022 5.3 12/12/2020 5.3 11/16/2019 5.1 ) Component Latest Ref Rng & Units 11/16/2019 05/10/2022 Creatinine, Ur Random (UCRR) 20.0 - 300.0 mg/dL 53.6 23.5 Albumin, Urine Random mg/L <12.0 <12.0 Albumin/Creat Ratio Not calculated Hypothyroidism Current medication: Levothyroxine 75mcg daily AC started in ER: took for one month and stopped. Had thyroid Taking as directed on an empty stomach? N/a. Thyroid pain: No. Mass effect: No. Change in energy level/ fatigue? Yes. Has always been tired but not this tired Sleep disturbance: confirms again : No trouble sleeping. says excessively tired, probably over last year. Falls asleep when she sits down. Temperature Intolerance: cold Yes, hot Yes. Goes from freezing to sweating year round. In females, menstrual cycle issues? N/a, no post menopausal bleeding. MIKAELA age 27 Change in bowel habits? No. 1-3 /day Constipation? No. If yes: Diarrhea? No. If yes: Weight changes?none. Memory issues: Notes some memory issues: takes time to recall names, past events. Diaphoresis: Yes. Numbness, tingling none Radiological imaging with contrast dyes within the last 3 months? No. History of radiation exposure to head or neck area? No. Change in hair or skin? No. If yes: Other symptoms: TSH Date Value 12/14/2022 3.770 mIU/L 05/10/2022 1.860 mIU/L 06/14/2017 2.410 uU/mL ) Obesity Vitals 06/18/2022 12/17/2022 06/21/2023 WEIGHT in POUNDS 177 lb 183 lb 180 lb WEIGHT in KILOGRAMS 80.287 kg 83.008 kg 81.647 kg HEIGHT in INCHES Chronic obstructive pulmonary disease, unspecified copd type (hcc) Fan Mail Editor: none. Interval history: none. Chronic cough intermittent, no wheezing, no PND Current medications: none Worsening shortness of breath: No. Cough: No. Wheezing: No. Smoking: No. Compliant with medications: n/a. Using rescue inhaler: 0. Early dry stage nonexudative age-related macular degeneration of both eyes Cataract surgery both sides Restasis Once a year for follow up: all stable Obesity, class ii, bmi 35-39.9 Vitals 06/14/2021 12/11/2021 03/15/2022 WEIGHT in POUNDS 180 lb 6.4 oz 178 lb 176 lb Kory (generalized anxiety disorder) Recurrent major depressive disorder, in full remission (hcc) Palpitations Current meds: Sertraline 150mg daily Good days and bad days Interest in life I guess it's okay Feels increase in sertraline has helped. 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 Cantor Palpitations resolved Change in medication No. Currently in counseling? No. Any Medication side effects? Yes. Sleep disturbance? good. Loss of interest in usual pleasurable activities?No. Sense of guilt, shame, low self esteem?No. Energy: low Trouble with concentration? No. Changes in appetite? No. Changes in weight? No Psychomotor retardation: No Suicidal thoughts: No Racing thoughts? No. Interpersonal/ family conflicts? No. Irritability? No. Rheumatoid Arthritits Current medications: Folic acid 1mg daily MTX 2.5mg 8 tab daily HCQ 2 tabs daily Tramadol 50mg daily, not daily Follows with rheum Dr. Lewis 02/25/2023 last visit Stable on medications. Arthritis has been flaring. Gets right thumb inject monthly which helps. Back on MTX HISTORIES FAMILY HISTORY Problem Relation Age of Onset Diabetes Paternal Grandmother Heart Paternal Grandmother Heart Maternal Grandmother Diabetes Paternal Aunt Heart Maternal Aunt PAST MEDICAL HISTORY Diagnosis Date Acute cholecystitis with chronic cholecystitis 03/14/2016 Acute deep vein thrombosis (DVT) of tibial vein of left lower extremity (HCC) 03/31/2018 03/17/17 left calf pain/swelling. US: DVT left soleus Arrhythmia states had a heart issue several years ago. Heartbeat is fast and feels like it is pounding Bilateral pneumonia 12/02/2010 CT chest bilateral patchy infiltrates upper lobes and LLL; more likely atypical Cortical age-related cataract of both eyes 10/17/2018 Cody Richardson OD [place] Depression DM2 (diabetes mellitus, type 2) ([facility]) resolved 10/01/2018 [facility] control with non-diabetic range [id number]'s and no medication Dysmetabolic syndrome X Early dry stage nonexudative age-related macular degeneration of both eyes 10/17/2018 Cody Richardson OD [place] HTN (hypertension) Hx of hyperglycemia Hyperlipidemia low HDL Menopausal and postmenopausal disorder 07/12/2010 Obesity, Class II, BMI 35-39.9 10/01/2018 Palpitations 05/19/2012 Pure hypercholesterolemia 09/04/2005 RA (rheumatoid arthritis) ([facility]) Dr. Lewis Rheumatoid arthritis involving multiple sites with positive rheumatoid factor ([facility]) 07/12/[address] Lewis Rosacea Sepsis ([facility]) 02/21/2017 admitted [facility], possible source infected right thumb but also mild cellulitis left lower leg. In [facility] x 1 month. treated with Vancomycin. + DVT. treated with IV Vanco Vitamin B12 deficiency 07/12/[address] Chu (Neuro) PAST SURGICAL HISTORY Procedure Laterality Date APPENDECTOMY COLONOSCOPY FLX DX W/COLLJ SPEC WHEN PFRMD 08/26/2018 Colonoscopy LAPS SURG CHOLECYSTECTOMY W/CHOLANGIOGRAPHY 03/12/16 hydrops, normal IOC TONSILLECTOMY AND ADENOIDECTOMY HX TOTAL ABDOMINAL HYSTERECT W/WO RMVL TUBE OVARY Hysterectomy, MIKAELA Social History Tobacco Use Smoking status: Never Smokeless tobacco: Never Substance Use Topics Alcohol use: No Comment: very rare Drug use: No ACTIVE PROBLEM LIST Prediabetes Vitamin B12 Deficiency Rheumatoid Arthritis Involving Multiple Sites With Positive Rheumatoid Factor ([facility]) Copd (Chronic Obstructive Pulmonary Disease) ([facility]) Palpitations Recurrent Major Depressive Disorder, in Full Remission ([facility]) Low Hdl (Under 40) History of Dvt of Lower Extremity Obesity, Class II, Bmi 35-39.9 Early Dry Stage Nonexudative Age-Related Macular Degeneration of Both Eyes Cortical Age-Related Cataract of Both Eyes Kory (Generalized Anxiety Disorder) Current Outpatient Medications Medication Sig Dispense Refill propranolol ER (INDERAL LA) 80 mg 24 hr capsule Take 1 capsule by mouth once daily. 90 capsule 1 sertraline 150 mg capsule Take 1 capsule (150 mg) by mouth once daily. 90 capsule 1 MULTI-VITAMIN ORAL Take by mouth once daily. OTC NUTRITIONAL SUPPLEMENT Spiroleina- ocean protein hydrocortisone (ANUSOL-HC) 25 mg suppository 1 Suppository by RECTAL route twice daily as needed. 28 Suppository 0 methotrexate 2.5 mg tablet Take 8 tablets by mouth once each week. folic acid 1 mg tablet Take 2 tablets by mouth once daily. RESTASIS 0.05 % ophthalmic emulsion Use 2 Drops in both eyes four times daily. traMADol (ULTRAM) 50 mg tablet Take 1 tablet by mouth every 4 hours as needed for Pain. 0 hydroxychloroquine sulfate(PLAQUENIL 200 MG TAB) Take two (2) by mouth once daily. 0 No current facility-administered medications for this visit. Covid-19 Vaccine(1) Never done Shingrix Vaccine(1 of 2) Never done Hepatitis B Vaccine(1 of 3 - Risk 3-dose series) Never done DTaP,Tdap,Td Vaccine(1 - Tdap) due on 08/15/2010 Urine Albumin:Creatinine Ratio due on 05/10/2023 Influenza Vaccine(1) due on 05/24/2023 Diabetic Foot Exam due on 06/18/2023 EXAM: BP 128/80 Pulse 72 Resp 16 Wt 81.6 kg (180 lb) SpO2 97% BMI 35.75 kg/m Pleasant overweight adult woman in no acute distress. Alert and oriented all spheres. Normal affect and cognition. Speech normal. No deficits to learning or comprehension. Cheerful and jesting. Skin warm, dry, pink to lips and nailbeds. Normal turgor. Numerous actinic keratoses. Respirations regular and unlabored. HEENT: NCAT. No scleral icterus or conjunctival injection. TM's clear. Nose and oropharynx free from injection or lesion. Oral membranes moist and pink. No cervical lymph nodes. Thyroid non-tender, no masses, or enlargement. Carotids pulses 2+/4+ without bruits. No JVD with HOB at 30 degrees. Chest is normal shape. Lungs are clear to all hernandez with good air exchange through out. HRRR without murmur or gallop. No lifts, heaves, or rubs. Extrem: no clubbing or cyanosis. Edema: none. Extremities are warm and pink with prompt capillary refill. ASSESSMENT/PLAN: 1. Hypertension, essential - ICD9: 401.9, ICD10: I10 (primary diagnosis) - Controlled - Continue current medications - Recommend home blood pressure monitoring, to bring results to next visit - Encouraged sodium restriction, DASH or Mediterranean diet - Recommend regular aerobic exercise 2. Pure hypercholesterolemia - ICD9: 272.0, ICD10: E78.00 3. Low HDL (under 40) - ICD9: 272.5, ICD10: E78.6 - Controlled - Continue current medications - Counseled on healthy diet and regular exercise 4. Prediabetes - ICD9: 790.29, ICD10: R73.03 Normal range hgba1c last 4 checks: resolve 5. Subclinical hypothyroidism - ICD9: 244.8, ICD10: E03.8 - Instructed patient on importance of taking on an empty stomach either first thing in the morning or at bedtime. 6. Obesity, Class II, BMI 35-39.9 - ICD9: 278.00, ICD10: E66.9 Patient expressed concerns about weight gain but has been stable since 2016 Encourage low impact exercise, carb reduction 7. Chronic obstructive pulmonary disease, unspecified COPD type (HCC) - ICD9: 496, ICD10: J44.9 No issues, no support 8. KORY (generalized anxiety disorder) - ICD9: 300.02, ICD10: F41.1 Stable, improved on increased dose, continue sertraline 9. Palpitations - ICD9: 785.1, ICD10: R00.2 Controlled, contine med - PROPRANOLOL ER 80 MG CAPSULE,24 HR,EXTENDED RELEASE 10. Recurrent major depressive disorder, in full remission (HCC) - ICD9: 296.36, ICD10: F33.42 Stable, continue med 11. Rheumatoid arthritis involving multiple sites with positive rheumatoid factor (HCC) - ICD9: 714.0, ICD10: M05.79 Following with rheum 12. Early dry stage nonexudative age-related macular degeneration of both eyes - ICD9: 362.51, ICD10: H35.3131 Following with ophthalmology, off drops except restais 13. Encounter for immunization - ICD9: V03.89, ICD10: Z23 - INFLUENZA VACCINE, PRSV FREE, AGE 65+ YR, HIGH DOSE, QUADRIVALENT (FLUZONE HIGH-DOSE) 14. Flu vaccine need - ICD9: V04.81, ICD10: Z23 Rebecca Maher PA-C documented in this encounter [facility] 06-06-2023 Miscellaneous Notes Letter mailed to pt home of results. Kay Lockett MA ----- Message from Rebecca Maher PA-C sent at 06/06/2023 6:17 AM EDT ----- Please let her know labs look good. ThanksHorace PA-C documented in this encounter [facility] 12-17-2022 Miscellaneous Notes Letter mailed to pt home of results. Kay Lockett MA ----- Message from Rebecca Maher PA-C sent at 12/17/2022 8:07 AM EDT ----- Please let her know thyroid is in good. Range. Thanks, Horace Maher PA-C documented in this encounter [facility] 12-17-2022 Note HNO ID: [id number] Author: Rebecca Maher PA-C Service: ? Author Type: Physician Public Transportation Inspector Type: Progress Notes Filed: 12/17/2022 7:35 PM Note Text: 77 year old female with c/o here for 6 month med/problem follow up: current concerns: Extremely tired- unusually so. Essential hypertension (primary encounter diagnosis) Current meds: Propranolol LA 80mg daily Patient is compliant with meds No Monitors bp at home: No. If yes, readings: Denies side effects: No. Chest pain: No. Dyspnea: No. Notes anxiety at times, gets a loittle SOB during those times. Edema: No. Palpitations: No. Syncope: No. Headache: No. Dizziness: No. Last 3 Encounter BP Readings: Date: BP: 03/15/2022 124/60 12/11/2021 122/70 06/12/2021 120/62 Last 2 Encounter Wt Readings: Date: Wt: 03/15/2022 79.8 kg (176 lb) 12/11/2021 80.7 kg (178 lb) Pure hypercholesterolemia Current medication none Taking medication consistently No Observing low cholesterol high fiber diet Yes Muscle aches No Stomach complaints/ diarrhea No Last 2 Lipids: Component Latest Ref Rng AND Units 11/16/2019 05/10/2022 Cholesterol, Total <200 mg/dL 150 153 Triglyceride <150 mg/dL 74 119 HDL Cholesterol >39 mg/dL 66 66 LDL Cholesterol <100 mg/dL 69 63 Non HDL Cholesterol <130 mg/dL 84 87 Fasting Time hrs 12 12 VLDL Cholesterol <30 mg/dL 15 24 TC:HDL Ratio <5.10 2.27 2.32 LDL:HDL Ratio <2.54 1.05 0.95 Prediabetes Hemoglobin A1C (%) Date Value 05/10/2022 5.3 12/12/2020 5.3 11/16/2019 5.1 ) Component Latest Ref Rng AND Units 11/16/2019 05/10/2022 Creatinine, Ur Random (UCRR) 20.0 - 300.0 mg/dL 53.6 23.5 Albumin, Urine Random mg/L <12.0 <12.0 Albumin/Creat Ratio Not calculated Hypothyroidism Current medication: Levothyroxine 75mcg daily AC started in ER: took for one month and stopped. Had thyroid Taking as directed on an empty stomach? N/a. Thyroid pain: No. Mass effect: No. Change in energy level/ fatigue? No. Has always been tired but not this tired Sleep disturbance No trouble sleeping. says excessively tired, probably over last year. Falls asleep when she sits down. Temperature Intolerance: cold Yes, hot Yes. Goes from freezing to sweating year round. In females, menstrual cycle issues? N/a, no post menopausal bleeding. MIKAELA age 27 Change in bowel habits? No. 1-3 /day Constipation? No. If yes: Diarrhea? No. If yes: Weight changes?none. Memory issues: No. Diaphoresis: Yes. Numbness, tingling none Radiological imaging with contrast dyes within the last 3 months? No. History of radiation exposure to head or neck area? No. Change in hair or skin? No. If yes: Other symptoms: Last 2 Encounter Wt Readings: Date: Wt: 06/18/2022 80.3 kg (177 lb) 03/15/2022 79.8 kg (176 lb) TSH Date Value 12/14/2022 3.770 mIU/L 05/10/2022 1.860 mIU/L 06/14/2017 2.410 uU/mL ) Chronic obstructive pulmonary disease, unspecified copd type ([facility]) Fan Mail Editor: none. Interval history: none. Chronic cough intermittent, no wheezing, no PND Current medications: none Worsening shortness of breath: No. Cough: No. Wheezing: No. Smoking: No. Compliant with medications: n/a. Using rescue inhaler: 0. Palpitations Continue to remain resolved Early dry stage nonexudative age-related macular degeneration of both eyes Cataract surgery both sides Restasis Once a year for follow up: all stable Obesity, class ii, bmi 35-39.9 Vitals 06/14/2021 12/11/2021 03/15/2022 WEIGHT in POUNDS 180 lb 6.4 oz 178 lb 176 lb Kory (generalized anxiety disorder) Recurrent major depressive disorder, in full remission (hcc) Current meds: Sertraline 150mg daily Really struggling with depression Not much interest in life- very unusual. Lost brother due to suicide, hard to deal, 3 years ago. They were very close, called everyday. Left a note but doesn't know what it said. 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 Change in medication No. Currently in counseling? No. Any Medication side effects? Yes. Sleep disturbance? good. Loss of interest in usual pleasurable activities?No. Sense of guilt, shame, low self esteem?No. Energy: low Trouble with concentration? No. Changes in appetite? No. Changes in weight? No Psychomotor retardation: No Suicidal thoughts: No Racing thoughts? No. Interpersonal/ family conflicts? No. Irritability? No. Rheumatoid Arthritits Current medications: Folic acid 1mg daily MTX 2.5mg 8 tab daily HCQ 2 tabs daily Tramadol 50mg daily Follows with rheum Stable on medications. Arthritis has been flaring. Off MTX due to worsening kidney function. Rechecking in 2 months. HISTORIES FAMILY HISTORY Problem Relation Age of Onset Diabetes Paternal Grandmother Heart Paternal Grandmother Heart Maternal Grandmother Diabetes Paternal Aunt Heart Maternal Aunt PAST MEDICAL HISTORY Diagnosis (more content not included)... [facility] 12-17-2022 History of Present illness Narrative 77 year old female with c/o here for 6 month med/problem follow up: current concerns: Extremely tired- unusually so. Essential hypertension (primary encounter diagnosis) Current meds: Propranolol LA 80mg daily Patient is compliant with meds No Monitors bp at home: No. If yes, readings: Denies side effects: No. Chest pain: No. Dyspnea: No. Notes anxiety at times, gets a loittle SOB during those times. Edema: No. Palpitations: No. Syncope: No. Headache: No. Dizziness: No. Last 3 Encounter BP Readings: Date: BP: 03/15/2022 124/60 12/11/2021 122/70 06/12/2021 120/62 Last 2 Encounter Wt Readings: Date: Wt: 03/15/2022 79.8 kg (176 lb) 12/11/2021 80.7 kg (178 lb) Pure hypercholesterolemia Current medication none Taking medication consistently No Observing low cholesterol high fiber diet Yes Muscle aches No Stomach complaints/ diarrhea No Last 2 Lipids: Component Latest Ref Rng & Units 11/16/2019 05/10/2022 Cholesterol, Total <200 mg/dL 150 153 Triglyceride <150 mg/dL 74 119 HDL Cholesterol >39 mg/dL 66 66 LDL Cholesterol <100 mg/dL 69 63 Non HDL Cholesterol <130 mg/dL 84 87 Fasting Time hrs 12 12 VLDL Cholesterol <30 mg/dL 15 24 TC:HDL Ratio <5.10 2.27 2.32 LDL:HDL Ratio <2.54 1.05 0.95 Prediabetes Hemoglobin A1C (%) Date Value 05/10/2022 5.3 12/12/2020 5.3 11/16/2019 5.1 ) Component Latest Ref Rng & Units 11/16/2019 05/10/2022 Creatinine, Ur Random (UCRR) 20.0 - 300.0 mg/dL 53.6 23.5 Albumin, Urine Random mg/L <12.0 <12.0 Albumin/Creat Ratio Not calculated Hypothyroidism Current medication: Levothyroxine 75mcg daily AC started in ER: took for one month and stopped. Had thyroid Taking as directed on an empty stomach? N/a. Thyroid pain: No. Mass effect: No. Change in energy level/ fatigue? No. Has always been tired but not this tired Sleep disturbance No trouble sleeping. says excessively tired, probably over last year. Falls asleep when she sits down. Temperature Intolerance: cold Yes, hot Yes. Goes from freezing to sweating year round. In females, menstrual cycle issues? N/a, no post menopausal bleeding. MIKAELA age 27 Change in bowel habits? No. 1-3 /day Constipation? No. If yes: Diarrhea? No. If yes: Weight changes?none. Memory issues: No. Diaphoresis: Yes. Numbness, tingling none Radiological imaging with contrast dyes within the last 3 months? No. History of radiation exposure to head or neck area? No. Change in hair or skin? No. If yes: Other symptoms: Last 2 Encounter Wt Readings: Date: Wt: 06/18/2022 80.3 kg (177 lb) 03/15/2022 79.8 kg (176 lb) TSH Date Value 12/14/2022 3.770 mIU/L 05/10/2022 1.860 mIU/L 06/14/2017 2.410 uU/mL ) Chronic obstructive pulmonary disease, unspecified copd type (hcc) Fan Mail Editor: none. Interval history: none. Chronic cough intermittent, no wheezing, no PND Current medications: none Worsening shortness of breath: No. Cough: No. Wheezing: No. Smoking: No. Compliant with medications: n/a. Using rescue inhaler: 0. Palpitations Continue to remain resolved Early dry stage nonexudative age-related macular degeneration of both eyes Cataract surgery both sides Restasis Once a year for follow up: all stable Obesity, class ii, bmi 35-39.9 Vitals 06/14/2021 12/11/2021 03/15/2022 WEIGHT in POUNDS 180 lb 6.4 oz 178 lb 176 lb Kory (generalized anxiety disorder) Recurrent major depressive disorder, in full remission (hcc) Current meds: Sertraline 150mg daily Really struggling with depression Not much interest in life- very unusual. Lost brother due to suicide, hard to deal, 3 years ago. They were very close, called everyday. Left a note but doesn't know what it said. 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 Change in medication No. Currently in counseling? No. Any Medication side effects? Yes. Sleep disturbance? good. Loss of interest in usual pleasurable activities?No. Sense of guilt, shame, low self esteem?No. Energy: low Trouble with concentration? No. Changes in appetite? No. Changes in weight? No Psychomotor retardation: No Suicidal thoughts: No Racing thoughts? No. Interpersonal/ family conflicts? No. Irritability? No. Rheumatoid Arthritits Current medications: Folic acid 1mg daily MTX 2.5mg 8 tab daily HCQ 2 tabs daily Tramadol 50mg daily Follows with rheum Stable on medications. Arthritis has been flaring. Off MTX due to worsening kidney function. Rechecking in 2 months. HISTORIES FAMILY HISTORY Problem Relation Age of Onset Diabetes Paternal Grandmother Heart Paternal Grandmother Heart Maternal Grandmother Diabetes Paternal Aunt Heart Maternal Aunt PAST MEDICAL HISTORY Diagnosis Date Acute cholecystitis with chronic cholecystitis 03/14/2016 Acute deep vein thrombosis (DVT) of tibial vein of left lower extremity ([facility]) 03/31/2018 03/17/17 left calf pain/swelling. US: DVT left soleus Arrhythmia states had a heart issue several years ago. Heartbeat is fast and feels like it is pounding Bilateral pneumonia 12/02/2010 CT chest bilateral patchy infiltrates upper lobes and LLL; more likely atypical Cortical age-related cataract of both eyes 10/17/2018 Cody Richardson OD [place] Depression DM2 (diabetes mellitus, type 2) ([facility]) resolved 10/01/2018 penitentiary control with non-diabetic range hgba1c's and no medication Dysmetabolic syndrome X Early dry stage nonexudative age-related macular degeneration of both eyes 10/17/2018 Cody Richardson OD [place] HTN (hypertension) Hx of hyperglycemia Hyperlipidemia low HDL Menopausal and postmenopausal disorder 07/12/2010 Obesity, Class II, BMI 35-39.9 10/01/2018 Palpitations 05/19/2012 Pure hypercholesterolemia 09/04/2005 RA (rheumatoid arthritis) ([facility]) Dr. Lewis Rheumatoid arthritis involving multiple sites with positive rheumatoid factor (HCC) 07/12/[address] Joshua Tesfaye Sepsis ([facility]) 02/21/2017 admitted [facility], possible source infected right thumb but also mild cellulitis left lower leg. In [facility] x 1 month. treated with Vancomycin. + DVT. treated with IV Vanco Vitamin B12 deficiency 07/12/[address] Chu (Neuro) PAST SURGICAL HISTORY Procedure Laterality Date APPENDECTOMY COLONOSCOPY FLX DX W/COLLJ SPEC WHEN PFRMD 08/26/2018 Colonoscopy LAPS SURG CHOLECYSTECTOMY W/CHOLANGIOGRAPHY 03/12/16 hydrops, normal IOC TONSILLECTOMY AND ADENOIDECTOMY HX TOTAL ABDOMINAL HYSTERECT W/WO RMVL TUBE OVARY Hysterectomy, MIKAELA Social History Tobacco Use Smoking status: Never Smokeless tobacco: Never Substance Use Topics Alcohol use: No Comment: very rare Drug use: No ACTIVE PROBLEM LIST Prediabetes Vitamin B12 Deficiency Rheumatoid Arthritis Involving Multiple Sites With Positive Rheumatoid Factor ([facility]) Copd (Chronic Obstructive Pulmonary Disease) ([facility]) Palpitations Recurrent Major Depressive Disorder, in Full Remission ([facility]) Low Hdl (Under 40) History of Dvt of Lower Extremity Obesity, Class II, Bmi 35-39.9 Early Dry Stage Nonexudative Age-Related Macular Degeneration of Both Eyes Cortical Age-Related Cataract of Both Eyes Kory (Generalized Anxiety Disorder) Current Outpatient Medications Medication Sig Dispense Refill propranolol ER (INDERAL LA) 80 mg 24 hr capsule Take 1 capsule by mouth once daily. 90 capsule 1 sertraline 150 mg capsule Take 1 capsule (150 mg) by mouth once daily. 90 capsule 1 levothyroxine 75 mcg cap Take 1 capsule by mouth once daily. MULTI-VITAMIN ORAL Take by mouth once daily. OTC NUTRITIONAL SUPPLEMENT Spiroleina- ocean protein hydrocortisone (ANUSOL-HC) 25 mg suppository 1 Suppository by RECTAL route twice daily as needed. 28 Suppository 0 methotrexate 2.5 mg tablet Take 8 tablets by mouth once each week. folic acid 1 mg tablet Take 2 tablets by mouth once daily. RESTASIS 0.05 % ophthalmic emulsion Use 2 Drops in both eyes four times daily. traMADol (ULTRAM) 50 mg tablet Take 1 tablet by mouth every 4 hours as needed for Pain. 0 hydroxychloroquine sulfate(PLAQUENIL 200 MG TAB) Take two (2) by mouth once daily. 0 No current facility-administered medications for this visit. ADVANCE DIRECTIVE DISCUSSION due on 09/23/2022 HBA1C due on 11/10/2022 EXAM: BP 124/60 Pulse 81 Resp 16 Wt 83 kg (183 lb) SpO2 96% BMI 36.34 kg/m Pleasant obese adult woman in no acute distress. Alert and oriented all spheres. Normal affect and cognition. Speech normal. No deficits to learning or comprehension. Skin warm, dry, pink to lips and nailbeds. Normal turgor. Respirations regular and unlabored. HEENT: NCAT. No scleral icterus or conjunctival injection. TM's clear. Nose and oropharynx free from injection or lesion. Oral membranes moist and pink. No cervical lymph nodes. Thyroid non-tender, no masses, or enlargement. Carotids pulses 2+/4+ without bruits. No JVD with HOB at 30 degrees. Chest is normal shape. Lungs are clear to all hernandez with good air exchange through out. HRRR without murmur or gallop. No lifts, heaves, or rubs. Extrem: no clubbing or cyanosis. Edema: none. Extremities are warm and pink with prompt capillary refill. ASSESSMENT/PLAN: 1. Fatigue, unspecified type - ICD9: 780.79, ICD10: R53.83 (primary diagnosis) Unclear, possible flare with RA, depression, possible side effect beta karen therapy for plapitaitons Declined treatment discussed. Offered to adjust meds, add bupropion or increase sertaline: declines. Also may be rr/t being off MTX due to rise in creatinine 2. Palpitations - ICD9: 785.1, ICD10: R00.2 Controlled on medication - PROPRANOLOL ER 80 MG CAPSULE,24 HR,EXTENDED RELEASE 3. Essential hypertension - ICD9: 401.9, ICD10: I10 - good control - Continue current medication(s) - Recommended regular aerobic exercise. - Recommend home blood pressure monitoring, to bring results in on next visit - Goal of BP <130/80 4. Pure hypercholesterolemia - ICD9: 272.0, ICD10: E78.00 Good control 5. Prediabetes - ICD9: 790.29, ICD10: R73.03 Stable, non-diabetic range: great job. 6. Chronic obstructive pulmonary disease, unspecified COPD type (HCC) - ICD9: 496, ICD10: J44.9 Stable, minimal sx. 7. Obesity, Class II, BMI 35-39.9 - ICD9: 278.00, ICD10: E66.9 Weight increasing - Behavioral intervention Possible effect sertraline. 8. KORY (generalized anxiety disorder) - ICD9: 300.02, ICD10: F41.1 9. Recurrent major depressive disorder, in full remission (HCC) - ICD9: 296.36, ICD10: F33.42 Ruminates over brother's 3 years ago: encouraged to do something positive as a memorial. 10. Rheumatoid arthritis involving multiple sites with positive rheumatoid factor (HCC) - ICD9: 714.0, ICD10: M05.79 Continue HCQ, a lot of pain. Using tramadol as prescribed without diversion. F/u 6 months Rebecca Maher PA-C documented in this encounter [facility] 06-08-2022 Miscellaneous Notes Printed and faxed as requested. Pended letter. Please print for signature Thanks, Horace Maher PA-C Patient calling received summons today for jury duty from 06/23 to 09/22 with the [facility] [address]. Patient said she has 5 days to have letter and form back to them. Patient does not want to do jury duty for health reasons and poor immune system. Patient would like to have letter faxed to: [phone] Attention: Quinn Hernández. Please advise documented in this encounter [facility] 03-15-2022 Instructions Rebecca Maher PA-C - 03/15/2022 10:35 AM EDT Hold thyroid medication. Recheck labs prior to next visit 10/29/2021 documented in this encounter [facility] 03-15-2022 History of Present illness Narrative 76 year old female with c/o here for ER follow-up 02/14/2022 presented to [facility] emergency department with complaint of lower extremity injury proximal anterior left leg, moderate severity with leg swelling and concern for blood clot. No shortness of breath or chest pain. Vital signs 98.2 [id number]/60-98% RA exam documents pain over the tibia, no ballottement over the knee, negative for laxity, negative Rony, no pain or fullness in popliteal fossa. [place] there was no risk of DVT since pain was anterior. Labs: CBC within normal limits except mild elevation of MCV, MCHC, RDW CHEM 9 WNL except anion gap 3 TSH 3.99 Patient was discharged with prescriptions for Percocet every 6 hours as needed #20/0 remainder of Rx not provided in record Levothyroxine 75 MCG daily AC #30/0 Feels she is doing better, swelling is subsiding, identifies site as lateral ankle which remains mildly swollen and tender on self palpation Patient states she is able to walk without difficulty. Denies any shortness of breath, chest pain, lightheadedness or dizziness. Patient question starting Synthroid as she feels this was premature. We discussed this at length as patient's TSH is in subclinical range and I would recommend reevaluation prior to starting medication even though patient already did. Patient is followed by Dr. Lewis for RA, suspect this is what has caused her current symptoms. HISTORIES FAMILY HISTORY Problem Relation Age of Onset Diabetes Paternal Grandmother Heart Paternal Grandmother Heart Maternal Grandmother Diabetes Paternal Aunt Heart Maternal Aunt PAST MEDICAL HISTORY Diagnosis Date Acute cholecystitis with chronic cholecystitis 03/14/2016 Acute deep vein thrombosis (DVT) of tibial vein of left lower extremity (HCC) 03/31/2018 03/17/17 left calf pain/swelling. US: DVT left soleus Arrhythmia states had a heart issue several years ago. Heartbeat is fast and feels like it is pounding Bilateral pneumonia 12/02/2010 CT chest bilateral patchy infiltrates upper lobes and LLL; more likely atypical Cortical age-related cataract of both eyes 10/17/2018 Cody Richardson OD [place] Depression DM2 (diabetes mellitus, type 2) ([facility]) resolved 10/01/2018 penitentiary control with non-diabetic range hgba1c's and no medication Dysmetabolic syndrome X Early dry stage nonexudative age-related macular degeneration of both eyes 10/17/2018 Cody Richardson OD [place] HTN (hypertension) Hx of hyperglycemia Hyperlipidemia low HDL Menopausal and postmenopausal disorder 07/12/2010 Obesity, Class II, BMI 35-39.9 10/01/2018 Palpitations 05/19/2012 Pure hypercholesterolemia 09/04/2005 RA (rheumatoid arthritis) ([facility]) Dr. Lewis Rheumatoid arthritis involving multiple sites with positive rheumatoid factor ([facility]) 07/12/[address] Lewis Rosacea Sepsis ([facility]) 02/21/2017 admitted [facility], possible source infected right thumb but also mild cellulitis left lower leg. In [facility] x 1 month. treated with Vancomycin. + DVT. treated with IV Vanco Vitamin B12 deficiency 07/12/[address] Chu (Neuro) PAST SURGICAL HISTORY Procedure Laterality Date APPENDECTOMY COLONOSCOPY FLX DX W/COLLJ SPEC WHEN PFRMD 08/26/2018 Colonoscopy LAPS SURG CHOLECYSTECTOMY W/CHOLANGIOGRAPHY 03/12/16 hydrops, normal IOC TONSILLECTOMY AND ADENOIDECTOMY HX TOTAL ABDOMINAL HYSTERECT W/WO RMVL TUBE OVARY Hysterectomy, MIKAELA Social History Tobacco Use Smoking status: Never Smoker Smokeless tobacco: Never Used Substance Use Topics Alcohol use: No Comment: very rare Drug use: No ACTIVE PROBLEM LIST Prediabetes Pure Hypercholesterolemia Vitamin B12 Deficiency Rheumatoid Arthritis Involving Multiple Sites With Positive Rheumatoid Factor ([facility]) Copd (Chronic Obstructive Pulmonary Disease) ([facility]) Palpitations Recurrent Major Depressive Disorder, in Full Remission ([facility]) Low Hdl (Under 40) History of Dvt of Lower Extremity Obesity, Class II, Bmi 35-39.9 Early Dry Stage Nonexudative Age-Related Macular Degeneration of Both Eyes Cortical Age-Related Cataract of Both Eyes Kory (Generalized Anxiety Disorder) Current Outpatient Medications Medication Sig Dispense Refill propranolol ER (INDERAL LA) 80 mg 24 hr capsule Take 1 capsule by mouth once daily. 90 capsule 1 sertraline 150 mg capsule Take 1 capsule (150 mg) by mouth once daily. 90 capsule 1 MULTI-VITAMIN ORAL Take by mouth once daily. OTC NUTRITIONAL SUPPLEMENT Spiroleina- ocean protein hydrocortisone (ANUSOL-HC) 25 mg suppository 1 Suppository by RECTAL route twice daily as needed. 28 Suppository 0 methotrexate 2.5 mg tablet Take 8 tablets by mouth once each week. folic acid 1 mg tablet Take 2 tablets by mouth once daily. RESTASIS 0.05 % ophthalmic emulsion Use 2 Drops in both eyes four times daily. traMADol (ULTRAM) 50 mg tablet Take 1 tablet by mouth every 4 hours as needed for Pain. 0 hydroxychloroquine sulfate(PLAQUENIL 200 MG TAB) Take two (2) by mouth once daily. 0 No current facility-administered medications for this visit. HEPATITIS C SCREENING Never done SHINGRIX VACCINE(1 of 2) Never done DTAP,TDAP,TD(1 - Tdap) due on 08/15/2010 DILATED RETINAL EXAM due on 06/30/2019 DIABETIC FOOT EXAM due on 05/22/2020 URINE ALBUMIN:CREATININE RATIO due on 11/16/2020 LDL CHOLESTEROL due on 11/16/2020 HBA1C due on 06/14/2021 ADVANCE DIRECTIVE DISCUSSION Never done EXAM: BP 124/60 Pulse 67 Resp 16 Wt 79.8 kg (176 lb) SpO2 96% BMI 34.95 kg/m Pleasant older adult woman in no acute distress. Alert and oriented all spheres. Normal affect and cognition. Speech normal. No deficits to learning or comprehension. Skin warm, dry, pink to lips and nailbeds. Normal turgor. Respirations regular and unlabored. HEENT: NCAT. No scleral icterus or conjunctival injection. TM's clear. Nose and oropharynx free from injection or lesion. Oral membranes moist and pink. No cervical lymph nodes. Thyroid non-tender, no masses, or enlargement. Carotids pulses 2+/4+ without bruits. No JVD with HOB at 30 degrees. Chest is normal shape. Lungs are clear to all hernandez with good air exchange through out. HRRR without murmur or gallop. No lifts, heaves, or rubs. Extrem: No evidence currently of swelling or edema, mildly tender lateral inferior knee over tibial prominence. No distal swelling. No palpable cords. Distal pulses 2+/4, prompt capillary refill. ASSESSMENT/PLAN: 1. Swelling of joint of right knee - ICD9: 719.06, ICD10: M25.461 (primary diagnosis) As above, suspect this is arthritic, no evidence of DVT. 2. Elevated TSH - ICD9: 794.5, ICD10: R79.89 - TSH BLD - T4 FREE/FREE THYROX 3. Low HDL (under 40) - ICD9: 272.5, ICD10: E78.6 - suboptimal control - Continue current medication. - Encouraged following a low fat, low cholesterol diet. - LIPID PANEL BASIC 4. KORY (generalized anxiety disorder) - ICD9: 300.02, ICD10: F41.1 Stable 5. Pure hypercholesterolemia - ICD9: 272.0, ICD10: E78.00 6. Recurrent major depressive disorder, in full remission (HCC) - ICD9: 296.36, ICD10: F33.42 Stable - CBC 7. Rheumatoid arthritis involving multiple sites with positive rheumatoid factor (HCC) - ICD9: 714.0, ICD10: M05.79 8. Vitamin B12 deficiency - ICD9: 266.2, ICD10: E53.8 - VITAMIN B12 BLOOD 9. Hyperglycemia - ICD9: 790.29, ICD10: R73.9 - HGB A1C - ALBUMIN/CREAT RATIO RND UR - TSH BLD - T4 FREE/FREE THYROX - VITAMIN B12 BLOOD - CBC 10. Subclinical hypothyroidism - ICD9: 244.8, ICD10: E03.8 At this time I Samira have her hold levothyroxine, recheck labs in 2 months as patient has no clinical symptoms and I suspect may be lab variance. Patient will hold on medication for future use if needed. - TSH BLD - T4 FREE/FREE THYROX Patient has scheduled follow-up in 2 months, labs prior Follow-up as needed in the interim. Rebecca Maher PA-C documented in this encounter [facility] 02-14-2022 Miscellaneous Notes Patient calls to report left leg swelling from foot to knee. Calf redness and pain. Nurse triage completed. Protocol recommends ED now. Patient agreeable and will transport. Care advice reviewed. Patient verbalizes understanding. Reason for Disposition [1] Can't walk or can barely walk AND [2] new-onset Answer Assessment - Initial Assessment Questions 1. ONSET: a couple of weeks but this week noted increased edema. Redness this past week to the calf approximately the size of a baseball. Patient reports that she is barely able to walk on the leg and pain is a 10/10 constantly. 2. LOCATION: Left leg 3. SEVERITY: - MODERATE edema - swelling of lower leg to knee, pitting edema > 1/4 inch (6 mm) deep, rest and elevation only partially reduce swelling 4. REDNESS: Yes size of baseball 5. PAIN: 10/10 6. FEVER: No 7. CAUSE: Possible blood clot. History of blood clot to left leg 2-3 years ago and hospitalized for a month. 8. MEDICAL HISTORY: Do you have a history of heart failure, kidney disease, liver failure, or cancer? Yes, history of heart failure, kidney disease, liver failure, or cancer 9. RECURRENT SYMPTOM: Yes 2 or 3 years ago and hospitalized. 10. OTHER SYMPTOMS: No chest pain or difficult breathing. Protocols used: LEG SWELLING AND [id number] documented in this encounter [facility] 12-11-2021 History of Present illness Narrative 76 year old female with c/o here for routine follow. No current concerns. Essential hypertension Palpitations Current meds: Propranolol ER 80 daily Patient is compliant with meds Yes Monitors bp at home: No. If yes, readings: Denies side effects: Yes Chest pain: No. Dyspnea: No. Edema: No. Palpitations: No. Syncope: No. Headache: No. Dizziness: No. Last 3 Encounter BP Readings: Date: BP: 06/12/2021 120/62 12/09/2020 108/62 06/10/2020 124/72 Last 2 Encounter Wt Readings: Date: Wt: 06/14/2021 81.8 kg (180 lb 6.4 oz) 06/12/2021 82.1 kg (181 lb) Low hdl (under 40) Hyperlipidemia: Current medication none Taking medication consistently n/a Observing low cholesterol high fiber diet Yes Muscle aches No Stomach complaints/ diarrhea Yes Last 2 Lipids: Component Latest Ref Rng & Units 10/01/2018 11/16/2019 Cholesterol, Total <200 mg/dL 150 Triglyceride <150 mg/dL 74 HDL Cholesterol >39 mg/dL 66 LDL Cholesterol <100 mg/dL 69 Non HDL Cholesterol <130 mg/dL 84 Fasting Time hrs 12 VLDL Cholesterol <30 mg/dL 15 TC:HDL Ratio <5.10 2.27 LDL:HDL Ratio <2.54 1.05 Total Cholesterol, Nonfasting <200 mg/dL 165 Triglycerides, Nonfasting <150 mg/dL 108 HDL Cholesterol, Nonfasting >39 mg/dL 69 LDL Cholesterol, Nonfasting <100 mg/dL 74 Non HDL Cholesterol, Nonfasting <130 mg/dL 96 VLDL Cholesterol, Nonfasting <30 mg/dL 22 Total Chol/HDL Ratio, Nonfasting <5.10 mg/dL 2.39 LDL/HDL Ratio, Nonfasting <2.54 mg/dL 1.07 Prediabetes 11/15/21 CBC, CMP essentially WNL Component Latest Ref Rng & Units 11/16/2019 12/12/2020 Hemoglobin A1C 4.3 - 5.6 % 5.1 5.3 Estimated Average Glucose mg/dL 100 105 Chronic obstructive pulmonary disease, unspecified copd type (hcc) Notes a little short winded, some chest congestion Coughs up mucus. No wheezing, some cough.,some sinus ocngestion. Recurrent major depressive disorder, in full remission (hcc) Current meds: Sertraline 100mg daily Change in medication No. Currently in counseling? No. Any Medication side effects? No. Patient Health Questionnaire (PHQ-9) PHQ-9 Levels: 0 - 4 Minimal depression 5 - 9 Mild depression 10-14 Moderate depression 15-19 Moderately severe depression 20-27 Severe depression PHQ-9 Score: 10 PHQ-2 Score: 5 (0-3) 1. Little interest or pleasure in doing things: Nearly every day 2. Feeling down, depressed, or hopeless: More than half the days 3. Trouble falling or staying asleep, or sleeping too much: More than half the days 4. Feeling tired or having little energy: Nearly every day 5. Poor appetite or overeating: Not at all 6. Feeling bad about yourself - or that you are a failure or have let yourself or your family down: Not at all 7. Trouble concentrating on things, such as reading the newspaper or watching television: Not at all 8. Moving or speaking so slowly that other people could have noticed. Or the opposite - being so fidgety or restless that you have been moving around a lot more than usual: Not at all 9. Thoughts that you would be better off , or of hurting yourself in some way: Not at all 10. If you checked off any problems, how difficult have these problems made it for you to do your work, take care of things at home, or get along with other people?: Not difficult at all PHQ-9 12/11/2021 Score 10 Rheumatoid arthritis involving multiple sites with positive rheumatoid factor ([facility]) Dr. Rivera Current medications: plaquenil 200mg two tabs daily Tramadol 50mg q4h prn pain Folic acid 1mg daily Prednisone if flare: 3 times in last 4-5 months. HISTORIES FAMILY HISTORY Problem Relation Age of Onset Diabetes Paternal Grandmother Heart Paternal Grandmother Heart Maternal Grandmother Diabetes Paternal Aunt Heart Maternal Aunt PAST MEDICAL HISTORY Diagnosis Date Acute cholecystitis with chronic cholecystitis 03/14/2016 Acute deep vein thrombosis (DVT) of tibial vein of left lower extremity ([facility]) 03/31/2018 03/17/17 left calf pain/swelling. US: DVT left soleus Arrhythmia states had a heart issue several years ago. Heartbeat is fast and feels like it is pounding Bilateral pneumonia 12/02/2010 CT chest bilateral patchy infiltrates upper lobes and LLL; more likely atypical Cortical age-related cataract of both eyes 10/17/2018 Cody Richardson OD [place] Depression DM2 (diabetes mellitus, type 2) ([facility]) resolved 10/01/2018 [facility] control with non-diabetic range hgba1c's and no medication Dysmetabolic syndrome X Early dry stage nonexudative age-related macular degeneration of both eyes 10/17/2018 Cody Richardson OD [place] HTN (hypertension) Hx of hyperglycemia Hyperlipidemia low HDL Menopausal and postmenopausal disorder 07/12/2010 Obesity, Class II, BMI 35-39.9 10/01/2018 Palpitations 05/19/2012 Pure hypercholesterolemia 09/04/2005 RA (rheumatoid arthritis) ([facility]) Dr. Lewis Rheumatoid arthritis involving multiple sites with positive rheumatoid factor ([facility]) 07/12/[address] Lewis Rosafideliaa Sepsis ([facility]) 02/21/2017 admitted [facility], possible source infected right thumb but also mild cellulitis left lower leg. In [facility] x 1 month. treated with Vancomycin. + DVT. treated with IV Vanco Vitamin B12 deficiency 07/12/[address] Chu (Neuro) PAST SURGICAL HISTORY Procedure Laterality Date APPENDECTOMY COLONOSCOP W/ OR W/O BRSH SPEC 08/26/2018 Colonoscopy LAP CHOLECYSTECT/CHOLANGIOGRAPHY 03/12/16 hydrops, normal IOC TONSILLECTOMY AND ADENOIDECTOMY HX TOTAL ABDOM HYSTERECTOMY Hysterectomy, MIKAELA Social History Tobacco Use Smoking status: Never Smoker Smokeless tobacco: Never Used Substance Use Topics Alcohol use: No Comment: very rare Drug use: No ACTIVE PROBLEM LIST Prediabetes Pure Hypercholesterolemia Vitamin B12 Deficiency Rheumatoid Arthritis Involving Multiple Sites With Positive Rheumatoid Factor (Hcc) Copd (Chronic Obstructive Pulmonary Disease) (Hcc) Palpitations Recurrent Major Depressive Disorder, in Full Remission (Hcc) Low Hdl (Under 40) History of Dvt of Lower Extremity Obesity, Class II, Bmi 35-39.9 Early Dry Stage Nonexudative Age-Related Macular Degeneration of Both Eyes Cortical Age-Related Cataract of Both Eyes Current Outpatient Medications Medication Sig Dispense Refill propranolol ER (INDERAL LA) 80 mg 24 hr capsule Take 1 capsule by mouth once daily. 90 capsule 1 sertraline (ZOLOFT) 100 mg tablet Take 1 tablet by mouth once daily. 90 tablet 3 MULTI-VITAMIN ORAL Take by mouth once daily. OTC NUTRITIONAL SUPPLEMENT Spiroleina- ocean protein hydrocortisone (ANUSOL-HC) 25 mg suppository 1 Suppository by RECTAL route twice daily as needed. 28 Suppository 0 methotrexate 2.5 mg tablet Take 8 tablets by mouth once each week. folic acid 1 mg tablet Take 2 tablets by mouth once daily. RESTASIS 0.05 % ophthalmic emulsion Use 2 Drops in both eyes four times daily. traMADol (ULTRAM) 50 mg tablet Take 1 tablet by mouth every 4 hours as needed for Pain. 0 hydroxychloroquine sulfate(PLAQUENIL 200 MG TAB) Take two (2) by mouth once daily. 0 No current facility-administered medications for this visit. HEPATITIS C SCREENING Never done SHINGRIX VACCINE(1 of 2) Never done DTAP,TDAP,TD(1 - Tdap) due on 08/15/2010 DILATED RETINAL EXAM due on 06/30/2019 DIABETIC FOOT EXAM due on 05/22/2020 URINE ALBUMIN:CREATININE RATIO due on 11/16/2020 LDL CHOLESTEROL due on 11/16/2020 HBA1C due on 06/14/2021 ADVANCE DIRECTIVE DISCUSSION Never done EXAM: BP 122/70 Pulse 63 Resp 16 Wt 80.7 kg (178 lb) SpO2 93% BMI 35.35 kg/m Pleasant overweight adult woman in no acute distress. Alert and oriented all spheres. Normal affect and cognition. Speech normal. No deficits to learning or comprehension. Skin warm, dry, pink to lips and nailbeds. Normal turgor. No suspicious lesions. Respirations regular and unlabored. HEENT: NCAT. No scleral icterus or conjunctival injection. TM's clear. Nose and oropharynx free from injection or lesion. Oral membranes moist and pink. No cervical lymph nodes. Thyroid non-tender, no masses, or enlargement. Carotids pulses 2+/4+ without bruits. No JVD with HOB at 30 degrees. Chest is normal shape. Lungs are clear to all hernandez with good air exchange through out. HRRR without murmur or gallop. No lifts, heaves, or rubs. Abdomen: active bowel sounds throughout, soft, nontender, no masses or organomegaly. No CVAT. Extrem: no clubbing or cyanosis. Edema: none. Extremities are warm and pink with prompt capillary refill. Arthritic changes in CMCJs bilaterally. ASSESSMENT/PLAN: 1. Essential hypertension - ICD9: 401.9, ICD10: I10 (primary diagnosis) - good control - Continue current medication(s) - Recommended regular aerobic exercise. - Recommend home blood pressure monitoring, to bring results in on next visit - Goal of BP <130/80 2. Low HDL (under 40) - ICD9: 272.5, ICD10: E78.6 - good control - Encouraged following a low fat, low cholesterol diet. - Discussed the benefits of regular aerobic exercise and weight loss. 3. Prediabetes - ICD9: 790.29, ICD10: R73.03 Resolved. 4. Chronic obstructive pulmonary disease, unspecified COPD type (HCC) - ICD9: 496, ICD10: J44.9 Stable without medicaiton 5. Recurrent major depressive disorder, in full remission (HCC) - ICD9: 296.36, ICD10: F33.42 Stable, doing well 6. Rheumatoid arthritis involving multiple sites with positive rheumatoid factor (HCC) - ICD9: 714.0, ICD10: M05.79 Stable, some pain but managing well. 7. Palpitations - ICD9: 785.1, ICD10: R00.2 No symptoms, stable on medication. - PROPRANOLOL ER 80 MG CAPSULE,24 HR,EXTENDED RELEASE Rebecca Maher PA-C documented in this encounter [facility] documented as of this encounter (statuses as of 12/11/2021) 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 Menopausal and postmenopausal disorder 0 10/17/2018 documented as of this encounter (statuses as of 02/14/2022) 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 Menopausal and postmenopausal disorder 0 10/17/2018 documented as of this encounter (statuses as of 03/15/2022) 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 Menopausal and postmenopausal disorder 0 10/17/2018 documented as of this encounter (statuses as of 06/08/2022) 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 Menopausal and postmenopausal disorder 0 10/17/2018 Pure hypercholesterolemia 09/04/20052021 documented as of this encounter (statuses as of 12/17/2022) 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 Menopausal and postmenopausal disorder 0 10/17/2018 Pure hypercholesterolemia 09/04/20052021 documented as of this encounter (statuses as of 12/18/2022) [facility] History of Past illness Narrative* Problem Noted Date Diagnosed Date Resolved Date Acute cholecystitis with chr onic cholecystitis 03/14/2016 03/31/2018 HTN (hypertension) 05/17/2014 8 Well controlled type 2 diabe rylee mellitus with neurological manifestations 11/29/2010 10/01/2018 Overview: Numbness noted 01/2016. Menopausal and postmenopausal disorder 07/12/2010 10/17/2018 Pure hypercholesterolemia 09/04/2005 documented as of this encounter (statuses as of 06/06/2023) [facility] History of Past illness Narrative* Problem Noted Date Diagnosed Date Resolved Date Acute cholecystitis with chr onic cholecystitis 03/14/2016 03/31/2018 Well controlled type 2 diabe rylee mellitus with neurological manifestations 11/29/2010 10/01/2018 Overview: Numbness noted 01/2016. Menopausal and postmenopausal disorder 07/12/2010 10/17/2018 Pure hypercholesterolemia 09/04/2005 documented as of this encounter (statuses as of 06/21/2023) [facility] of Past illness Narrative* Problem Noted Date Diagnosed Date Resolved Date Acute cholecystitis with chr onic cholecystitis 03/14/2016 03/31/2018 Well controlled type 2 diabe rylee mellitus with neurological manifestations 11/29/2010 10/01/2018 Overview: Numbness noted 01/2016. Menopausal and postmenopausal disorder 07/12/2010 10/17/2018 Pure hypercholesterolemia 09/04/2005 documented as of this encounter (statuses as of 06/22/2023) [facility] History of Past illness Narrative* Problem Noted Date Diagnosed Date Resolved Date Acute cholecystitis with chr onic cholecystitis 03/14/2016 03/31/2018 Well controlled type 2 diabe rylee mellitus with neurological manifestations 11/29/2010 10/01/2018 Overview: Numbness noted 01/2016. Menopausal and postmenopausal disorder 07/12/2010 10/17/2018 Pure hypercholesterolemia 09/04/2005 documented as of this encounter (statuses as of 07/23/2023) [facility] History of Past illness Narrative* Problem Noted Date Diagnosed Date Resolved Date Acute cholecystitis with chr onic cholecystitis 03/14/2016 03/31/2018 Well controlled type 2 diabe rylee mellitus with neurological manifestations 11/29/2010 10/01/2018 Overview: Numbness noted 01/2016. Menopausal and postmenopausal disorder 07/12/2010 10/17/2018 Pure hypercholesterolemia 09/04/2005 documented as of this encounter (statuses as of 08/21/2023) [facility] Essential hypertension- Primary Unspecified essential hypertension Low HDL (under 40) Lipoprotein deficiencies Prediabetes Other abnormal glucose Chronic obstructive pulmonary disease, unspecified COPD type (HCC) Recurrent major depressive disorder, in full remission (HCC) Rheumatoid arthritis involving multiple sites with positive rheumatoid factor (HCC) Palpitations [facility] Diagnosis Swelling of joint of right knee- Primary Effusion of lower leg joint Elevated TSH Nonspecific abnormal results of thyroid function study Low HDL (under 40) Lipoprotein deficiencies KORY (generalized anxiety disorder) Generalized anxiety disorder Pure hypercholesterolemia Recurrent major depressive disorder, in full remission (HCC) Rheumatoid arthritis involving multiple sites with positive rheumatoid factor (HCC) Vitamin B12 deficiency Other B-complex deficiencies Hyperglycemia Other abnormal glucose Subclinical hypothyroidism Other specified acquired hypothyroidism [facility] Diagnosis Fatigue, unspecified type- Primary Palpitations Essential hypertension Unspecified essential hypertension Pure hypercholesterolemia Prediabetes Other abnormal glucose Chronic obstructive pulmonary disease, unspecified COPD type (HCC) Obesity, Class II, BMI 35-39.9 Obesity, unspecified KORY (generalized anxiety disorder) Generalized anxiety disorder Recurrent major depressive disorder, in full remission (HCC) Rheumatoid arthritis involving multiple sites with positive rheumatoid factor (HCC) [facility] Diagnosis Hypertension, essential- Primary Unspecified essential hypertension Low HDL (under 40) Lipoprotein deficiencies Pure hypercholesterolemia Prediabetes Other abnormal glucose Subclinical hypothyroidism Other specified acquired hypothyroidism Obesity, Class II, BMI 35-39.9 Obesity, unspecified Chronic obstructive pulmonary disease, unspecified COPD type (HCC) KORY (generalized anxiety disorder) Generalized anxiety disorder Palpitations Recurrent major depressive disorder, in full remission (HCC) Rheumatoid arthritis involving multiple sites with positive rheumatoid factor (HCC) Early dry stage nonexudative age-related macular degeneration of both eyes Encounter for immunization Need for other specified prophylactic vaccination against single bacterial disease Flu vaccine need Need for prophylactic vaccination and inoculation against influenza [facility] Diagnosis Need for vaccination- Primary Need for prophylactic vaccination and inoculation against unspecified single disease documented in this encounter 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 Expl anation Advance Directive(s) 08/26/2018 7:59 AM Advance Directive(s) 08/05/2018 9:40 AM Documents on File Type Date Recorded Patient Soap 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 this information is protected by the Federal Confidentiality of Alcohol and Drug Abuse Patient Records regulations: The Federal rules restrict any use of the information to criminally investigate or prosecute any alcohol or drug abuse patient.[facility] this information is protected by the Federal Confidentiality of Alcohol and Drug Abuse Patient Records regulations: The Federal rules restrict any use of the information to criminally investigate or prosecute any alcohol or drug abuse patient.[facility] event this information is protected by the Federal Confidentiality of Alcohol and Drug Abuse Patient Records regulations: The Federal rules restrict any use of the information to criminally investigate or prosecute any alcohol or drug abuse patient.[facility] event this information is protected by the Federal Confidentiality of Alcohol and Drug Abuse Patient Records regulations: The Federal rules restrict any use of the information to criminally investigate or prosecute any alcohol or drug abuse patient.[facility] event this information is protected by the Federal Confidentiality of Alcohol and Drug Abuse Patient Records regulations: The Federal rules restrict any use of the information to criminally investigate or prosecute any alcohol or drug abuse patient.[facility] event this information is protected by the Federal Confidentiality of Alcohol and Drug Abuse Patient Records regulations: The Federal rules restrict any use of the information to criminally investigate or prosecute any alcohol or drug abuse patient.[facility] event this information is protected by the Federal Confidentiality of Alcohol and Drug Abuse Patient Records regulations: The Federal rules restrict any use of the information to criminally investigate or prosecute any alcohol or drug abuse patient.[facility] event this information is protected by the Federal Confidentiality of Alcohol and Drug Abuse Patient Records regulations: The Federal rules restrict any use of the information to criminally investigate or prosecute any alcohol or drug abuse patient.[facility] event this information is protected by the Federal Confidentiality of Alcohol and Drug Abuse Patient Records regulations: The Federal rules restrict any use of the information to criminally investigate or prosecute any alcohol or drug abuse patient.[facility] event this information is protected by the Federal Confidentiality of Alcohol and Drug Abuse Patient Records regulations: The Federal rules restrict any use of the information to criminally investigate or prosecute any alcohol or drug abuse patient.[facility] Reason for Visit (unrecogniz ed section and content) Reason Comments leg swelling Reason Comments Jury Duty Letter Reason Comments Results Reason Comments 6 Month Exam Reason Comments Medication Problem Reason Comments Imm/Inj Care Teams (unrecognized sec tion and content) Goodwill Representative Relationship Specialty Start Date End Date Rebecca Maher PA-C [address] [place] [address] PCP - General Family Practice 03/31/18 Goodwill Representative Relationship Specialty Start Date End Date Rebecca Maher PA-C [address] [place] [address] PCP - General Family Practice 03/31/18 Goodwill Representative Relationship Specialty Start Date End Date Rebecca Maher PA-C [address] [place] [address] PCP - General Family Practice 03/31/18 Goodwill Representative Relationship Specialty Start Date End Date Rebecca Maher PA-C [address] [place] [address] PCP - General Family Medicine 03/31/18 Goodwill Representative Relationship Specialty Start Date End Date Rebecca Maher PA-C [address] [place] [address] PCP - General Family Medicine 03/31/18 Goodwill Representative Relationship Specialty Start Date End Date Rebecca Maher PA-C [address] [place] [address] PCP - General Family Medicine 03/31/18 Goodwill Representative Relationship Specialty Start Date End Date Rebecca Maher PA-C [address] [place] [address] PCP - General Family Medicine 03/31/18 Goodwill Representative Relationship Specialty Start Date End Date Rebecca Maher PA-C [address] [place] [address] PCP - General Family Medicine 03/31/18 Goodwill Representative Relationship Specialty Start Date End Date Rebecca Maher PA-C [address] [place], [place] [id number] PCP - General [facility] 03/31/18 Goodwill Representative Relationship Specialty Start Date End Date Rebecca Maher PA-C [address] [place], [place] [id number] PCP - General Family [facility] 03/31/18 INFORMATION SOURCE (unrecogn ized section and content) FOR RECORDS PERTAINING TO PATIENTS WHO ARE OR HAVE BEEN ENROLLED IN A CHEMICAL DEPENDENCY/SUBSTANCEABUSE PROGRAM, SOME INFORMATION MAY BE OMITTED. This clinical summary was aggregated from multiple sources. Caution should be exercised in using it in the provision of clinical care. This summary normalizes information from multiple sources, and as a consequence, information in this document may materially change the coding, format and clinical context of patient data. In addition, data may be omitted in some cases. CLINICAL DECISIONS SHOULD BE BASED ON THE PRIMARY CLINICAL RECORDS. [facility]. provides no warranty or guarantee of the accuracy or completeness of information in this document.
== END | disposition home or self-care (01) ==
LOC: MTLAB 15:35
PROVIDERS: PCP Physician Assistant; Referring Provider Internal Medicine Rheumatology; Visit Provider Internal Medicine Rheumatology
DX: M06.4 Inflammatory polyarthropathy (principal); Z79.899 Other long term (current) drug therapy; M18.11 Unilateral primary osteoarthritis of first carpometacarpal joint, right hand; M18.12 Unilateral primary osteoarthritis of first carpometacarpal joint, left hand; M17.0 Bilateral primary osteoarthritis of knee
CPT/HCPCS: 36415; 80053; 85025

== ENCOUNTER → 2024-01-28 | Outpatient (CLI) | payer MEDICARE, SELFPAY ==
[2024-01-28 15:44] LABS: Absolute Lymphocyte Count 1.47 X10^3/uL (0.83-4.51); Absolute Neutrophil Count 3.7 X10^3/uL (2.0-7.7); Basophil# 0.05 X10^3/uL; Basophil% 0.8 % (0-1); Eosinophil# 0.16 X10^3/uL; Eosinophils% 2.6 % (0-5); Hematocrit 43.9 % (37-47); Hemoglobin 14.5 g/dL (12.0-15.0); Lymphocyte # 1.47 X10^3/ul (0.83-4.51); Mean Corpuscular Hgb 33.7 pg (27.0-32.0); Mean Corpuscular Volume 102.1 fL (81-99); Mean Platelet Vol. 11.6 fl (6.2-12.0); Monocyte# 0.71 X10^3/uL; Monocyte% 11.6 % (0-10); NRBC Flagged by Analyzer 0 % (0-5); Neutrophil # 3.73 X10^3/uL (2.7-7.7); Neutrophil % 60.8 % (47-70); Platelet Count 248 K/mm3 (150-450); RBC Distribution Width CV 14.2 % (11.6-14.6); RBC Distribution Width SD 53.3 fl (35.1-43.9); White Blood Count 6.1 K/mm3 (4.4-11.0)
[2024-01-28 16:07] LABS: ALB/GLOB Ratio 0.9 RATIO (0.9-2.4); AST(SGOT) 21 U/L (15-37); Alanine Aminotransfer ALT/SGPT 24 U/L (13-56); Albumin, Serum 3.5 g/dL (3.2-5.0); Alkaline Phosphatase 129 U/L (45-117); Anion Gap 6 (5-15); BUN 16 mg/dL (7-18); Calcium,Total 9.6 mg/dL (8.5-10.1); Chloride 105 mmol/L (98-107); EST Glomerular Filtration Rate 73 mL/min (>60); Est Glom Filt Rate - Afr Amer 89 mL/min (>60); Globulin 3.8 g/dL (2.2-4.2); Glucose 85 mg/dL (74-106); Potassium 3.9 mmol/L (3.5-5.1); Protein, Total 7.3 g/dL (6.4-8.2); Sodium Level 138 mmol/L (136-145)
== END | disposition home or self-care (01) ==
LOC: MTLAB 11:27
PROVIDERS: PCP Physician Assistant; Referring Provider Internal Medicine Rheumatology; Visit Provider Internal Medicine Rheumatology
DX: M06.4 Inflammatory polyarthropathy (principal); Z79.899 Other long term (current) drug therapy; M17.0 Bilateral primary osteoarthritis of knee; M18.0 Bilateral primary osteoarthritis of first carpometacarpal joints
CPT/HCPCS: 36415; 80053; 85025

== ENCOUNTER → 2024-04-21 | Outpatient (CLI) | payer MEDICARE, SELFPAY ==
[2024-04-21 15:18] LABS: Absolute Lymphocyte Count 1.63 X10^3/uL (0.83-4.51); Absolute Neutrophil Count 4.7 X10^3/uL (2.0-7.7); Basophil# 0.07 X10^3/uL; Basophil% 0.9 % (0-1); Eosinophil# 0.18 X10^3/uL; Eosinophils% 2.4 % (0-5); Hematocrit 43.8 % (37-47); Lymphocyte # 1.63 X10^3/ul (0.83-4.51); Mean Corp Hgb Conc 34.2 g/dL (32-36); Mean Corpuscular Hgb 33.9 pg (27.0-32.0); Mean Corpuscular Volume 98.9 fL (81-99); Mean Platelet Vol. 10.8 fl (6.2-12.0); Monocyte# 0.79 X10^3/uL; Monocyte% 10.6 % (0-10); NRBC Flagged by Analyzer 0 % (0-5); Neutrophil # 4.73 X10^3/uL (2.7-7.7); Neutrophil % 63.8 % (47-70); Platelet Count 231 K/mm3 (150-450); RBC Distribution Width CV 13.7 % (11.6-14.6); RBC Distribution Width SD 49.2 fl (35.1-43.9); Red Blood Count 4.43 M/mm3 (4.2-5.4); White Blood Count 7.4 K/mm3 (4.4-11.0)
[2024-04-21 15:37] LABS: ALB/GLOB Ratio 0.8 RATIO (0.9-2.4); AST(SGOT) 21 U/L (15-37); Alanine Aminotransfer ALT/SGPT 26 U/L (13-56); Albumin, Serum 3.3 g/dL (3.2-5.0); Alkaline Phosphatase 128 U/L (45-117); Anion Gap 6 (5-15); BUN 17 mg/dL (7-18); BUN/Creat Ratio 20.2 RATIO (10-20); Calcium,Total 9.3 mg/dL (8.5-10.1); Chloride 109 mmol/L (98-107); Creatinine, Serum 0.84 mg/dL (0.55-1.02); EST Glomerular Filtration Rate 69 mL/min (>60); Est Glom Filt Rate - Afr Amer 84 mL/min (>60); Globulin 3.9 g/dL (2.2-4.2); Glucose 86 mg/dL (74-106); Protein, Total 7.2 g/dL (6.4-8.2); Sodium Level 142 mmol/L (136-145)
== END | disposition home or self-care (01) ==
LOC: MTLAB 12:34
PROVIDERS: PCP Physician Assistant; Referring Provider Internal Medicine Rheumatology; Visit Provider Internal Medicine Rheumatology
DX: M06.4 Inflammatory polyarthropathy (principal); M17.0 Bilateral primary osteoarthritis of knee; M18.0 Bilateral primary osteoarthritis of first carpometacarpal joints; Z79.899 Other long term (current) drug therapy
CPT/HCPCS: 36415; 80053; 85025

== ENCOUNTER → 2024-07-14 | Outpatient (CLI) | payer MEDICARE, SELFPAY ==
[2024-07-14 17:43] LABS: Absolute Lymphocyte Count 1.43 X10^3/uL (0.83-4.51); Absolute Neutrophil Count 3.5 X10^3/uL (2.0-7.7); Basophil# 0.06 X10^3/uL; Eosinophil# 0.14 X10^3/uL; Eosinophils% 2.4 % (0-5); Hematocrit 43.4 % (37-47); Hemoglobin 14.4 g/dL (12.0-15.0); Lymphocyte # 1.43 X10^3/ul (0.83-4.51); Lymphocyte % 24.7 % (19-41); Mean Corp Hgb Conc 33.2 g/dL (32-36); Mean Corpuscular Hgb 33.3 pg (27.0-32.0); Mean Corpuscular Volume 100.2 fL (81-99); Mean Platelet Vol. 10.6 fl (6.2-12.0); Monocyte# 0.65 X10^3/uL; Monocyte% 11.2 % (0-10); NRBC Flagged by Analyzer 0 % (0-5); Neutrophil % 60.5 % (47-70); Platelet Count 242 K/mm3 (150-450); RBC Distribution Width CV 13.7 % (11.6-14.6); RBC Distribution Width SD 50.2 fl (35.1-43.9); Red Blood Count 4.33 M/mm3 (4.2-5.4); White Blood Count 5.8 K/mm3 (4.4-11.0)
[2024-07-14 18:04] LABS: AST(SGOT) 28 U/L (15-37); Alanine Aminotransfer ALT/SGPT 33 U/L (13-56); Albumin, Serum 3.5 g/dL (3.2-5.0); Alkaline Phosphatase 124 U/L (45-117); Anion Gap 5 (5-15); BUN 18 mg/dL (7-18); BUN/Creat Ratio 18.4 RATIO (10-20); Calcium,Total 9.6 mg/dL (8.5-10.1); Chloride 107 mmol/L (98-107); Creatinine, Serum 0.98 mg/dL (0.55-1.02); EST Glomerular Filtration Rate 58 mL/min (>60); Est Glom Filt Rate - Afr Amer 70 mL/min (>60); Globulin 3.5 g/dL (2.2-4.2); Glucose 143 mg/dL (74-106); Potassium 3.5 mmol/L (3.5-5.1); Sodium Level 140 mmol/L (136-145)
== END | disposition home or self-care (01) ==
LOC: MTLAB 14:27
PROVIDERS: PCP Physician Assistant; Referring Provider Internal Medicine Rheumatology; Visit Provider Internal Medicine Rheumatology
DX: M06.4 Inflammatory polyarthropathy (principal); M65.311 Trigger thumb, right thumb; M17.0 Bilateral primary osteoarthritis of knee; M18.0 Bilateral primary osteoarthritis of first carpometacarpal joints
CPT/HCPCS: 36415; 80053; 85025

== ENCOUNTER 2024-09-13 15:08 | Emergency (ER) | payer MEDICARE, SELFPAY ==
[2024-09-13 15:08] VITALS: BP 147/75; PULSE 63; RESP 17; TEMP 36.1; O2SAT 98
[2024-09-13] MEDS: oxyCODONE 5 MG Tablet PO (15:32)
--- NOTE | 2024-09-13 15:52 | EDS_ITS ---
HPI <TANESHA Kang - Last Filed: 09/13/24 17:11> History of Present Illness Chief Complaint: Lower Extremity Injury Narrative Narrative: Patient is an 79-year-old female with history of hyperlipidemia, history of leg cellulitis, GERD, RA, history of DVT left lower leg presenting to the emergency department with multiple weeks of left leg pain, much worse over the last 24 to 48 hours. Patient is concerned this could be another blood clot. She denies a [place] long car rides, recent travel, recent surgery recent illnesses. She denies any fever or chills. Denies any trauma. [facility] <TANESHA Kang - Last Filed: 09/13/24 17:11> [facility] Medical History (Updated 09/13/24 @ 17:07 by TANESHA Kagn) Depression Diabetes Osteoarthritis Rheumatoid arthritis Pneumonia Non-smoker Irregular heart beat DVT (deep venous thrombosis) Home Medications ?Medication ?Instructions ?Recorded ?Last Taken ?Type sertraline 100 mg tablet 100 mg PO DAILY depression 03/11/16 03/20/17 08:30 History folic acid 1 mg tablet 2 mg PO DAILY supplement 03/10/17 03/15/17 08:00 History 1 tramadol 50 mg tablet (Ultram) 50 mg PO Q6H PRN PRN Pain ##30 03/29/17 Unknown Rx cyanocobalamin (vitamin B-12) 1,000 mcg PO DAILY 07/11/17 Unknown History 1,000 mcg tablet (Vitamin B-12) methotrexate sodium 2.5 mg tablet 15 mg PO Q7D 07/11/17 08/15/20 History propranolol 10 mg tablet 80 mg PO DAILY 07/11/17 Unknown History Restasis 1 gtt EACH EYE BID 02/14/22 Unknown History hydroxychloroquine 200 mg tablet 400 mg PO DAILY arthritis 02/14/22 Unknown History levothyroxine 75 mcg capsule 75 mcg PO DAILY #30 caps 02/14/22 Unknown Rx oxycodone-acetaminophen 5 mg-325 1 tab PO Q6H PRN PRN pain 5 days 02/14/22 Unknown Rx mg tablet #20 TABLETS oxycodone-acetaminophen 5 mg-325 1 tab PO Q8H PRN pain 3 days #10 09/13/24 Unknown Rx mg tablet (Percocet) tabs Allergy/AdvReac Type Severity Reaction Status Date / Time No Known Allergies Allergy Verified 09/13/24 15:08 Surgical History (Updated 02/14/22 @ 14:24 by Luz Elena Alarcon) History of appendectomy History of cholecystectomy Social History (Updated 02/14/22 @ 14:[address] Slade Mitchell MD) household members: spouse Smoking Status: Never smoker substance use type: does not use ROS <TANESHA Kang - Last Filed: 09/13/24 17:11> ROS ED ROS Narrative Constitutional: Negative for fever, chills, weight loss, weakness Eyes: Negative for vision loss, vision change, double vision ENT: Negative for any sore throat, ear pain, congestion Cardiovascular: Negative for any chest pain, tightness, palpitations Respiratory: Negative for any cough, sputum production, hemoptysis, dyspnea, dyspnea on exertion, orthopnea Gastrointestinal: Negative for any abdominal pain, nausea, vomiting, diarrhea, c onstipation, blood in stool, blood in vomit : Negative for any urinary frequency, dysuria, retention, blood in urine Muscle skeletal: Negative for any neck pain, back pain. Positive for left leg pain Neurological: Negative for any headache, syncope, dizziness Skin: Negative for any rashes, itching, abrasions, lacerations Psychiatric: Negative for any depression, anxiety, stress, suicidal ideation, homicidal ideation Hematologic: Negative for any excessive bruising, easy bleeding EXAM <TANESHA Kang - Last Filed: 09/13/24 17:11> Physical Exam Narrative Exam Narrative: Vital signs reviewed. HEET: Head normocephalic atraumatic, TMs clear bilaterally. Posterior pharynx is clear, moist mucous membranes. Nares clear bilaterally. Neck: Supple with no lymphadenopathy or tenderness. No signs of meningismus. Cardiac: Regular rate and rhythm no murmurs gallops or rubs, equal peripheral pulses bilaterally. Respiratory: Lungs clear to auscultation bilaterally. No chest tenderness. Abdomen: Soft, nontender, nondistended. No abdominal bruit or pulsatile masses. No hepatosplenomegaly Extremities: No peripheral edema, no signs of gross trauma or deformity. Active full range of motion of all extremities. +2 pedal pulse, patient has pain more towards the distal left lower leg. Just above the ankle. This is pain on palpation however there is no edema, there is no erythema, no pain to the calf. Patient is able dorsiflex, plantarflex against resistance. No signs of redness. Compartments are soft. Neuro: Cranial nerves II through XII intact, no focal neurological deficits. Skin: Clean dry and intact with no rash, purpura, petechiae, vesicles or pustules. Backs/flank: No CVA tenderness, no midline spinal tenderness, no deformity. Psych: Normal mood and affect. No SI, HI or acute psychosis. Const Vital Signs: 09/13/24 15:08 Temperature 96.9 F L Temperature Source Temporal Pulse Rate 63 Respiratory Rate 17 Blood Pressure 147/75 H Blood Pressure Mean 99 Pulse Ox 98 Oxygen Delivery Method Room Air Positive well nourished and well developed General Appearance ED: well developed <Dr. Jesus Estrada DO - Last Filed: 09/13/24 19:19> Physical Exam Const Vital Signs: 09/13/24 15:08 Temperature 96.9 F L Temperature Source Temporal Pulse Rate 63 Respiratory Rate 17 Blood Pressure 147/75 H Blood Pressure Mean 99 Pulse Ox 98 Oxygen Delivery Method Room Air MDM <TANESHA Kang - Last Filed: 09/13/24 17:11> MDM Lab Data Labs: Laboratory Results - last 24 hr 09/13/24 16:31 WBC 8.1 RBC 4.56 Hgb 15.2 H Hct 45.9 MCV 100.7 H MCH 33.3 H MCHC 33.1 RDW Std Deviation 52.0 H RDW Coeff of Sujatha 14.2 Plt Count 227 MPV 10.8 Immature Gran % (Auto) 0.200 Neut % (Auto) 69.6 Lymph % (Auto) 16.5 L Rush % (Auto) 10.9 H Eos % (Auto) 2.1 Baso % (Auto) 0.7 Absolute Neuts (auto) 5.6 Absolute Lymphs (auto) 1.33 Nucleated RBC % 0 Sodium 141 Potassium 3.9 Chloride 107 Carbon Dioxide 30.0 Anion Gap 4 L BUN 15 Creatinine 0.75 Est GFR (MDRD) Af Amer 96 Est GFR (MDRD) Non-Af 79 BUN/Creatinine Ratio 20.0 Glucose 94 Calcium 9.9 EKG Sinus rhythm: Attestation: I personally reviewed and interpreted this EKG as follows: Interpretation: Sinus Rhythm Comments: Sinus rhythm, rate of 60 bpm, NY interval 240 ms, QRS duration 86 ms, no acute ST elevation, no acute infarct noted. Treatment and Re-Evaluation :: Differential diagnosis includes however is not limited to: DVT, acute on chronic pain, neuropathy, cellulitis, superficial thrombophlebitis calf sprain, Patient appears generally well, vital signs are stable, patient is nontoxic- appearing. Presenting to the [facility] part with complaints of left lower leg pain has been ongoing for 1 month however much worse over the last couple days. Patient at this time will receive a Lovenox subcu injection 1 mg/kg. Patient weighs 182 pounds, this is roughly 80 kg. Patient also states that she has intermittent blood in her stool that is chronic and she has been feeling fatigued and she would like her hemoglobin checked. Patient CBC shows a hemoglobin of 15.2 which is baseline for the patient. Patient's chemistries were unremarkable. At this time, patient be discharged home. She will receive a order for outpatient venous duplex tomorrow. All questions were answered, patient stable for discharge. <Dr. Jesus Estrada, DO - Last Filed: 09/13/24 19:19> [facility] Lab Data Labs: Laboratory Results - last 24 hr 09/13/24 16:31 WBC 8.1 RBC 4.56 Hgb 15.2 H Hct 45.9 MCV 100.7 H MCH 33.3 H MCHC 33.1 RDW Std Deviation 52.0 H RDW Coeff of Sujatha 14.2 Plt Count 227 MPV 10.8 Immature Gran % (Auto) 0.200 Neut % (Auto) 69.6 Lymph % (Auto) 16.5 L Rush % (Auto) 10.9 H Eos % (Auto) 2.1 Baso % (Auto) 0.7 Absolute Neuts (auto) 5.6 Absolute Lymphs (auto) 1.33 Nucleated RBC % 0 Sodium 141 Potassium 3.9 Chloride 107 Carbon Dioxide 30.0 Anion Gap 4 L BUN 15 Creatinine 0.75 Est GFR (MDRD) Af Amer 96 Est GFR (MDRD) Non-Af 79 BUN/Creatinine Ratio 20.0 Glucose 94 Calcium 9.9 Treatment and Re-Evaluation :: Differential diagnosis includes however is not limited to: DVT, acute on chronic pain, neuropathy, cellulitis, superficial thrombophlebitis calf sprain, Patient appears generally well, vital signs are stable, patient is nontoxic- appearing. Presenting to the [facility] part with complaints of left lower leg pain has been ongoing for 1 month however much worse over the last couple days. Patient at this time will receive a Lovenox subcu injection 1 mg/kg. Patient weighs 182 pounds, this is roughly 80 kg. Patient also states that she has intermittent blood in her stool that is chronic and she has been feeling fatigued and she would like her hemoglobin checked. Patient CBC shows a hemoglobin of 15.2 which is baseline for the patient. Patient's chemistries were unremarkable. At this time, patient be discharged home. She will receive a order for outpatient venous duplex tomorrow. All questions were answered, patient stable for discharge. ED attending note: I evaluated the patient in conjunction with the VIKI. I agree with his/her statements and above findings. I have personally performed a face to face assessment of the patient and have reviewed the [facility] Note. I performed a substantive portion of the visit including all aspects of the following. I personally saw the patient performed chart review, physical exam, reviewed labs, imaging (if obtained), and formulated a treatment and management plan. This note was generated with [employer] dictation software. It may contain incorrect words, spelling, and punctuation that were not noted in review of the chart prior to signing. Discharge Plan Triage Chief Complaint: Lower Extremity Injury ED Midlevel Provider: Ramy Petty ED Provider: Jesus Estrada Dx/Rx/DC Orders Clinical Impression: Leg pain Instructions: DEREJE RAZO Myalgias Prescriptions: New oxycodone-acetaminophen [Percocet] 5-325 mg tablet 1 tab PO Q8H PRN (Reason: pain) 3 Days Qty: 10 0RF No Action sertraline 100 MG tablet 100 mg PO DAILY Patient Comments: antidepressant folic acid 1 MG tablet 2 mg PO DAILY Patient Comments: supplement tramadol [Ultram] 50 MG tablet 50 mg PO Q6H PRN PRN (Reason: Pain) Qty: 30 0RF cyanocobalamin (vitamin B-12) [Vitamin B-12] 1,000 MCG tablet 1,000 mcg PO DAILY methotrexate sodium 2.5 MG tablet 15 mg PO Q7D propranolol 10 MG tablet 80 mg PO DAILY Patient Comments: blood pressure Restasis 1 gtt EACH EYE BID hydroxychloroquine 200 MG tablet 400 mg PO DAILY Patient Comments: arthritis oxycodone-acetaminophen [oxycodone-acetaminophen] 1 TABLET tablet 1 tab PO Q6H PRN PRN (Reason: pain) 5 Days Qty: 20 0RF levothyroxine 75 mcg capsule 75 mcg PO DAILY Qty: 30 0RF Other Ambulatory Orders: Venous Duplex US, Unilateral (Stat) Facility: [facility] - Location: [facility] Ordered By: Ramy Petty Primary Care Provider: Jaxon Naylor Referrals: Jaxon Naylor MD [Primary Care Provider] - Activity Restrictions/Additional Instructions: You were treated with Lovenox, this is good for 24 hours. Please receive the venous duplex tomorrow to see if there is any blood clot to your left lower extremity. Return for any worsening symptoms. Print Language: Kiswahili Disposition Disposition: Home, Self Care Discharge Date/Time: 09/13/24 17:25
--- NOTE | 2024-09-13 16:14 | EKG12_ITS ---
Test Reason : GENERAL Blood Pressure : */* mmHG Vent. Rate : 60 BPM Atrial Rate : 60 BPM P-R Int : 204 ms QRS Dur : 86 ms QT Int : 394 ms P-R-T Axes : 37 15 43 degrees QTcB Int : 394 ms Normal sinus rhythm Normal ECG Confirmed by SHAJI MONTANEZ, RICARDO ([id number]), editor city ANJANA VANCE ([id number]) on 09/14/2024 8:24:15 AM Referred By: Confirmed By: RICARDO GIRARD MD
[2024-09-13 16:39] LABS: Absolute Lymphocyte Count 1.33 X10^3/uL (0.83-4.51); Absolute Neutrophil Count 5.6 X10^3/uL (2.0-7.7); Basophil# 0.06 X10^3/uL; Basophil% 0.7 % (0-1); Eosinophil# 0.17 X10^3/uL; Eosinophils% 2.1 % (0-5); Hematocrit 45.9 % (37-47); Hemoglobin 15.2 g/dL (12.0-15.0); Lymphocyte # 1.33 X10^3/ul (0.83-4.51); Lymphocyte % 16.5 % (19-41); Mean Corp Hgb Conc 33.1 g/dL (32-36); Mean Corpuscular Hgb 33.3 pg (27.0-32.0); Mean Corpuscular Volume 100.7 fL (81-99); Mean Platelet Vol. 10.8 fl (6.2-12.0); Monocyte# 0.88 X10^3/uL; Monocyte% 10.9 % (0-10); NRBC Flagged by Analyzer 0 % (0-5); Neutrophil # 5.61 X10^3/uL (2.7-7.7); Neutrophil % 69.6 % (47-70); Platelet Count 227 K/mm3 (150-450); RBC Distribution Width CV 14.2 % (11.6-14.6); Red Blood Count 4.56 M/mm3 (4.2-5.4); White Blood Count 8.1 K/mm3 (4.4-11.0)
[2024-09-13 16:53] LABS: Anion Gap 4 (5-15); BUN 15 mg/dL (7-18); Calcium,Total 9.9 mg/dL (8.5-10.1); Chloride 107 mmol/L (98-107); Creatinine, Serum 0.75 mg/dL (0.55-1.02); EST Glomerular Filtration Rate 79 mL/min (>60); Est Glom Filt Rate - Afr Amer 96 mL/min (>60); Glucose 94 mg/dL (74-106); Potassium 3.9 mmol/L (3.5-5.1); Sodium Level 141 mmol/L (136-145)
[2024-09-13] MEDS: Enoxaparin 80 MG/0.8 ML Syringe SC (17:16)
== END 2024-09-13 17:25 | disposition home or self-care (01) ==
PROVIDERS: Nurse Practitioner; Emergency Provider Emergency Medicine; PCP Family Medicine; Visit Provider Emergency Medicine
DX: M79.606 Pain in leg, unspecified (principal); E11.9 Type 2 diabetes mellitus without complications; Z86.718 Personal history of other venous thrombosis and embolism; E78.5 Hyperlipidemia, unspecified; Z90.49 Acquired absence of other specified parts of digestive tract; K21.9 Gastro-esophageal reflux disease without esophagitis
CPT/HCPCS: 80048; 85025; 93005; 96372; 99282

== ENCOUNTER 2024-09-14 11:21 | Emergency (ER) | payer MEDICARE, SELFPAY ==
[2024-09-14 11:21] VITALS: BP 143/53; PULSE 62; RESP 16; TEMP 36.8; O2SAT 99
[2024-09-14 11:24] VITALS: BMI 37.5
--- NOTE | 2024-09-14 11:45 | RAD_ITS ---
EXAM: XR LEFT TIBIA AND FIBULA, 2 VIEWS CLINICAL INDICATION: Injury/Pain TECHNIQUE: Frontal and lateral views of the left tibia and fibula. COMPARISON: 03/26/2017. FINDINGS: BONES/JOINTS: Subchondral sclerosis underneath the medial tibial plateau of the left knee. No acute fracture. No subluxation. Normal alignment. Preservation of the joint space. SOFT TISSUES: Unremarkable. No soft tissue swelling or gas. No radiopaque foreign body. RAD/Tibia & Fibula 2 Views IMPRESSION: 1. No obvious acute fracture or dislocation of the left tibia and fibula. 2. Mild subchondral sclerosis underneath the medial tibial plateau of the left knee. MRI of the left knee will be very helpful for further evaluation considering the history of trauma and left knee pain. This is a new finding when compared to 03/26/2017. Electronically Signed: Adebayo Boyd MD at 12:55 EST ,
[2024-09-14] MEDS: HYDROcodone Bitartrate/Apap 5/325 Tablet PO (12:08)
[2024-09-14 12:22] LABS: Erythrocyte Sedimentation Rate 13 mm/hr (0-30)
--- NOTE | 2024-09-14 12:31 | EDS_ITS ---
HPI History of Present Illness Chief Complaint: Lower Extremity Injury Detail of Chief Complaint: Anterior left leg pain and positive venous duplex study Informant: patient and spouse/S.O. Onset/Context/Timing Onset: Weeks (Pain anterior left leg 2 to 3 weeks with she attended anabaptism.) Context: Sudden Onset Timing: Intermittent and Waxes and wanes Quality: Pain Location: Anterior left leg mid third. Current Severity: Mild Maximum Severity: Severe Worsened by: Weightbearing and palpation Relieved by: Nothing Associated Symptoms Associated Symptoms: There is no complaint of chest pain or shortness of breath. Prior history Narrative Narrative: Patient is an 79-year-old female. She was seen last evening. Venous duplex study was ordered. Venous duplex study reveals a DVT involving the left soleus vein. She denies fever, chills night sweats. She denies knee or ankle joint pain. She denies swelling. She denies discoloration of her extremity. There is no history of gout or pseudogout. Prior similar symptoms: Yes Recent Illness[facility] Medical History Depression Diabetes Osteoarthritis Rheumatoid arthritis Pneumonia Non-smoker Irregular heart beat DVT (deep venous thrombosis) Home Medications ?Medication ?Instructions ?Recorded ?Last Taken ?Type sertraline 100 mg tablet 100 mg PO DAILY depression 03/11/16 03/20/17 08:30 History folic acid 1 mg tablet 2 mg PO DAILY supplement 03/10/17 03/15/17 08:00 History 1 tramadol 50 mg tablet (Ultram) 50 mg PO Q6H PRN PRN Pain ##30 03/29/17 Unknown Rx cyanocobalamin (vitamin B-12) 1,000 mcg PO DAILY 07/11/17 Unknown History 1,000 mcg tablet (Vitamin B-12) methotrexate sodium 2.5 mg tablet 15 mg PO Q7D 07/11/17 08/15/20 History propranolol 10 mg tablet 80 mg PO DAILY 07/11/17 Unknown History Restasis 1 gtt EACH EYE BID 02/14/22 Unknown History hydroxychloroquine 200 mg tablet 400 mg PO DAILY arthritis 02/14/22 Unknown History levothyroxine 75 mcg capsule 75 mcg PO DAILY #30 caps 02/14/22 Unknown Rx oxycodone-acetaminophen 5 mg-325 1 tab PO Q6H PRN PRN pain 5 days 02/14/22 Unknown Rx mg tablet #20 TABLETS oxycodone-acetaminophen 5 mg-325 1 tab PO Q8H PRN pain 3 days #10 09/13/24 Unknown Rx mg tablet (Percocet) tabs hydrocodone-acetaminophen 5-325mg 1 tab PO Q6H PRN PRN Pain 3 days 09/14/24 Unknown Rx 5mg-325mg #10 TABLETS Allergy/AdvReac Type Severity Reaction Status Date / Time No Known Allergies Allergy Verified 09/14/24 11:24 Surgical History History of appendectomy History of cholecystectomy Social History household members: spouse Smoking Status: Never smoker substance use type: does not use ROS ROS ED Constitutional Constitutional ED: Denies chills, fever(s), subjective, sweats or weight loss Cardiovascular Cardiovascular: Denies chest pain or palpitations Respiratory/Chest Respiratory/Chest: Denies cough, dyspnea or dyspnea on exertion Gastrointestinal Gastrointestinal: Denies nausea or vomiting Musculoskeletal Musculoskeletal: Reports other Details: Anterior left leg pain. ; Denies arthralgias, back pain, myalgias or neck pain Integumentary Denies abscess, Abrasions or rash Neurologic Neurologic: Denies headache(s), paresthesias or weakness Hematologic/Lymphatic Hematologic/Lymphatic: Reports systems reviewed and no addt'l complaints, except as documented EXAM Physical Exam Const Vital Signs: 09/14/24 11:21 Temperature 98.2 F Temperature Source Oral Pulse Rate 62 Respiratory Rate 16 Blood Pressure 143/53 H Blood Pressure Mean 83 Pulse Ox 99 Oxygen Delivery Method Room Air Positive well nourished and well developed General Appearance ED: well developed and NAD HEENT Reports moist mucous membranes HEENT Narrative: Head atraumatic normocephalic. Ears normal. Eyes PERRL and EOMs intact bilaterally General Eye ED: Negative for pale conjunctiva or scleral icterus Resp normal respiratory effort Cardio regular rate and regular rhythm Extremity normal to inspection Extremity Narrative: There is pain palpation anteriorly over the left tibia. There is also pain posteriorly in the distribution of the soleus vein. There is no swelling of the calf. There is no leg pain along distribution of the soleus vein. There is no leg vein distention. There is no discoloration of the extremity. DP and PT pulse are palpable. There is no swelling of the knee. There is no swelling of the ankle. There is no effusion of the knee or ankle. She has reproducible pain over the mid third of the tibia anteriorly. General Extremety ED: Negative for edema General Extremity: Negative for edema Neuro oriented x3, CN's II-XII intact bilaterally and no sensory deficits noted Sensorium / Orientation: alert Motor Exam: strength 5/5 throughout Psych mental status grossly normal Skin no rashes or lesions noted, no wounds and skin turgor normal MDM MDM MDM Narrative Medical decision making narrative: With palpation over the tibia and pain for 2 to 3 weeks some difficulty ambulating x-ray was obtained. ESR was obtained to see if there is any evidence of formation. CBC and electrolyte panel was obtained yesterday and reviewed. The venous duplex study reveals an acute clot of the left soleus muscle. Will discuss risks benefits of anticoagulation versus serial venous duplex studies. After discussion we will go route of follow-up venous duplex studies. Lab Data Attestation: I reviewed the patient's lab results. Lab results narrative: Sed rate is normal at 13. Labs: Laboratory Results - last 24 hr 09/14/24 12:10 ESR 13 Radiography Chest X-Ray - ED: 2 View and Read by ED Physician ([id number]. There is radiolucency noted in the medullary region of the left tibia. There is no disruption of the cortex. There is no soft tissue swelling noted. There is no foreign body noted.) Diagnostic Testing: Clinical Impression(s) from Imaging Studies Tibia/Fibula X-Ray 09/14/24 11:45 IMPRESSION: 1. No obvious acute fracture or dislocation of the left tibia and fibula. 2. Mild subchondral sclerosis underneath the medial tibial plateau of the left knee. MRI of the left knee will be very helpful for further evaluation considering the history of trauma and left knee pain. This is a new finding when compared to 03/26/2017. Electronically Signed: Adebayo Boyd MD at 12:55 EST , Discharge Plan Triage Chief Complaint: Lower Extremity Injury ED Provider: Slade Mitchell Dx/Rx/DC Orders Clinical Impression: Acute deep vein thrombosis (DVT), Rheumatoid arthritis, History of hyperlipidemia, Diabetes mellitus, type II, Pain of left anterior lower extremity Instructions: ED Deep Vein Thrombosis (DVT) Prescriptions: New hydrocodone-acetaminophen 5-325 mg tablet 1 tab PO Q6H PRN PRN (Reason: Pain) 3 Days Qty: 10 0RF No Action sertraline 100 MG tablet 100 mg PO DAILY Patient Comments: antidepressant folic acid 1 MG tablet 2 mg PO DAILY Patient Comments: supplement tramadol [Ultram] 50 MG tablet 50 mg PO Q6H PRN PRN (Reason: Pain) Qty: 30 0RF cyanocobalamin (vitamin B-12) [Vitamin B-12] 1,000 MCG tablet 1,000 mcg PO DAILY methotrexate sodium 2.5 MG tablet 15 mg PO Q7D propranolol 10 MG tablet 80 mg PO DAILY Patient Comments: blood pressure Restasis 1 gtt EACH EYE BID hydroxychloroquine 200 MG tablet 400 mg PO DAILY Patient Comments: arthritis oxycodone-acetaminophen [oxycodone-acetaminophen] 1 TABLET tablet 1 tab PO Q6H PRN PRN (Reason: pain) 5 Days Qty: 20 0RF levothyroxine 75 mcg capsule 75 mcg PO DAILY Qty: 30 0RF oxycodone-acetaminophen [Percocet] 5-325 mg tablet 1 tab PO Q8H PRN (Reason: pain) 3 Days Qty: 10 0RF Other Ambulatory Orders: Venous Duplex US, Unilateral (Stat) Timeframe: 3 Days Facility: [facility] - Location: [facility] Ordered By: Dr. Slade Mitchell Primary Care Provider: Jaxon Naylor Referrals: Jaxon Naylor MD [Primary Care Provider] - 3-5 Days Activity Restrictions/Additional Instructions: You will need to schedule for a repeat venous duplex study for September 17. If you still have a clot Dr. Naylor will need to schedule a repeat study for September 24. Take an aspirin a day for the next week. Print Language: Serbian Disposition Disposition: Home, Self Care
[2024-09-14 13:25] VITALS: BP 132/61; PULSE 54; RESP 18; TEMP 36.5; O2SAT 98
== END 2024-09-14 13:25 | disposition home or self-care (01) ==
PROVIDERS: Emergency Provider Emergency Medicine; PCP Family Medicine; Visit Provider Emergency Medicine
DX: I82.462 Acute embolism and thrombosis of left calf muscular vein (principal); M06.9 Rheumatoid arthritis, unspecified; E11.9 Type 2 diabetes mellitus without complications; E78.5 Hyperlipidemia, unspecified; M79.605 Pain in left leg; M79.662 Pain in left lower leg; Z90.49 Acquired absence of other specified parts of digestive tract; Z86.718 Personal history of other venous thrombosis and embolism
CPT/HCPCS: 36415; 73590; 85652; 99282

== ENCOUNTER → 2024-09-14 | Outpatient (CLI) | payer MEDICARE, SELFPAY ==
--- NOTE | 2024-09-14 10:32 | VDLE_ITS ---
Reason For Study: Pain RIGHT LEFT CFV is compressible, spontaneous, phasic, GSV is normal. competent and demonstrates normal CFV is compressible, spontaneous, phasic, augmentation. competent, and demonstrates normal Procedure augmentation. This is a venous duplex using B-mode, color FV is compressible, spontaneous, phasic, flow and spectral Doppler. competent and demonstrates normal Exam performed in department. augmentation. A preliminary report was called and/or faxed POP V is compressible, spontaneous, phasic, to [facility] RN. Pt taken to ER for treatment. competent and demonstrates normal augmentation. T/P Trunk is compressible. PTV is compressible. LT PerV is compressible. Acute Deep Vein Thrombosis is noted in the Left Soleus V. It is dialated and NONCOMPRESSIBLE. VL/Venous Duplex US, Unilateral Interpretation Summary Acute deep vein thrombosis is noted in the left soleus vein. Ordering Physician: Ramy Petty Referring Physician: Ramy Petty Performed By: Edison Finnegan RVT and Student
== END | disposition home or self-care (01) ==
LOC: CVS 10:31
PROVIDERS: PCP Family Medicine; Referring Provider Nurse Practitioner; Visit Provider Nurse Practitioner
DX: M79.662 Pain in left lower leg (principal)
CPT/HCPCS: 93971

== ENCOUNTER → 2024-09-17 | Outpatient (CLI) | payer MEDICARE, SELFPAY ==
--- NOTE | 2024-09-17 13:32 | VDLE_ITS ---
Reason For Study: Soleus Clot F/U RIGHT LEFT CFV is compressible, spontaneous, phasic, GSV is normal. competent and demonstrates normal CFV is compressible, spontaneous, phasic, augmentation. competent, and demonstrates normal Procedure augmentation. This is a venous duplex using B-mode, color FV is compressible, spontaneous, phasic, flow and spectral Doppler. competent and demonstrates normal Exam performed in department. augmentation. Compared to 09/14/2024. POP V is compressible, spontaneous, phasic, competent and demonstrates normal augmentation. T/P Trunk is compressible. PTV is compressible. LT PerV is compressible. Acute Deep Vein Thrombosis is noted in the Left Soleus V. It is dialated and NONCOMPRESSIBLE. VL/Venous Duplex US, Unilateral Interpretation Summary Acute deep vein thrombosis is noted in the left soleus vein. Negative for propagation Ordering Physician: MD Slade Mitchell Referring Physician: Slade Mitchell Performed By: Naomi Boone RVT and Student
== END | disposition home or self-care (01) ==
LOC: CVS 13:31
PROVIDERS: PCP Family Medicine; Referring Provider Emergency Medicine; Visit Provider Emergency Medicine
DX: I82.462 Acute embolism and thrombosis of left calf muscular vein (principal)
CPT/HCPCS: 93971

== ENCOUNTER → 2024-09-25 | Outpatient (CLI) | payer MEDICARE, SELFPAY ==
--- NOTE | 2024-09-25 09:41 | VDLE_ITS ---
Reason For Study: F/U DVT RIGHT LEFT CFV is compressible, spontaneous, phasic, GSV is normal. competent and demonstrates normal CFV is compressible, spontaneous, phasic, augmentation. competent, and demonstrates normal Procedure augmentation. This is a venous duplex using B-mode, color FV is compressible, spontaneous, phasic, flow and spectral Doppler. competent and demonstrates normal Exam performed in department. augmentation. A preliminary report was called and/or faxed POP V is compressible, spontaneous, phasic, to Elena ALMENDAREZ. competent and demonstrates normal augmentation. T/P Trunk is compressible. PTV is compressible. LT PerV is compressible. Acute Deep Vein Thrombosis is noted in the Left Soleus V. It is dilated and NONCOMPRESSIBLE. VL/Venous Duplex US, Unilateral Interpretation Summary Acute deep vein thrombosis is noted in the left soleus vein. The left great sap henous vein appears patent and compressible segmentally. Ordering Physician: Almaz Parker Referring Physician: Jaxon Naylor Performed By: Naomi Boone RVT
== END | disposition home or self-care (01) ==
PROVIDERS: PCP Family Medicine; Referring Provider Registered Nurse; Visit Provider Registered Nurse
DX: I82.492 Acute embolism and thrombosis of other specified deep vein of left lower extremity (principal)
CPT/HCPCS: 93971

== ENCOUNTER → 2024-10-02 | Outpatient (CLI) | payer MEDICARE, SELFPAY ==
--- NOTE | 2024-10-02 13:01 | VDLE_ITS ---
Reason For Study: DVT RIGHT LEFT CFV is compressible, spontaneous, phasic, GSV is normal. competent and demonstrates normal CFV is compressible, spontaneous, phasic, augmentation. competent, and demonstrates normal Procedure augmentation. This is a venous duplex using B-mode, color FV is compressible, spontaneous, phasic, flow and spectral Doppler. competent and demonstrates normal Exam performed in department. augmentation. Compared to 09/25/2024. POP V is compressible, spontaneous, phasic, competent and demonstrates normal augmentation. T/P Trunk is compressible. PTV is compressible. LT PerV is compressible. Acute Deep Vein Thrombosis is noted in the Left Soleus V. It is dilated and NONCOMPRESSIBLE. VL/Venous Duplex US, Unilateral Interpretation Summary Acute deep vein thrombosis is noted in the left soleus vein. Negative for propagation. The left great saphenous vein appears patent and compressible segmentally. Ordering Physician: Almaz Parker Referring Physician: Jaxon Naylor Performed By: Naomi Boone RVT
== END | disposition home or self-care (01) ==
LOC: CVS 13:01
PROVIDERS: PCP Family Medicine; Referring Provider Registered Nurse; Visit Provider Registered Nurse
DX: I82.492 Acute embolism and thrombosis of other specified deep vein of left lower extremity (principal)
CPT/HCPCS: 93971

== ENCOUNTER → 2024-10-21 | Outpatient (CLI) | payer MEDICARE, SELFPAY ==
[2024-10-21 10:49] LABS: AST(SGOT) 23 U/L (15-37); Alanine Aminotransfer ALT/SGPT 21 U/L (13-56); Albumin, Serum 3.5 g/dL (3.2-5.0); Alkaline Phosphatase 119 U/L (45-117); Anion Gap 7 (5-15); BUN 14 mg/dL (7-18); BUN/Creat Ratio 18.5 RATIO (10-20); Calcium,Total 9.5 mg/dL (8.5-10.1); Chloride 107 mmol/L (98-107); Creatinine, Serum 0.76 mg/dL (0.55-1.02); EST Glomerular Filtration Rate 78 mL/min (>60); Est Glom Filt Rate - Afr Amer 94 mL/min (>60); Globulin 3.6 g/dL (2.2-4.2); Glucose 95 mg/dL (74-106); Potassium 4.2 mmol/L (3.5-5.1); Protein, Total 7.1 g/dL (6.4-8.2); Sodium Level 141 mmol/L (136-145)
== END | disposition home or self-care (01) ==
LOC: MTLAB 08:42
PROVIDERS: PCP Family Medicine; Referring Provider Internal Medicine Rheumatology; Visit Provider Internal Medicine Rheumatology
DX: M06.4 Inflammatory polyarthropathy (principal); Z79.899 Other long term (current) drug therapy; M17.0 Bilateral primary osteoarthritis of knee; M65.321 Trigger finger, right index finger; M18.0 Bilateral primary osteoarthritis of first carpometacarpal joints
CPT/HCPCS: 36415; 80053

== ENCOUNTER → 2025-01-04 | Outpatient (CLI) | payer MEDICARE, SELFPAY ==
[2025-01-04 15:15] LABS: Absolute Lymphocyte Count 1.63 X10^3/uL (0.83-4.51); Absolute Neutrophil Count 2.6 X10^3/uL (2.0-7.7); Basophil# 0.07 X10^3/uL; Basophil% 1.3 % (0-1); Eosinophil# 0.28 X10^3/uL; Eosinophils% 5.1 % (0-5); Hematocrit 39.3 % (37-47); Hemoglobin 12.9 g/dL (12.0-15.0); Lymphocyte # 1.63 X10^3/ul (0.83-4.51); Lymphocyte % 29.8 % (19-41); Mean Corp Hgb Conc 32.8 g/dL (32-36); Mean Corpuscular Hgb 32.8 pg (27.0-32.0); Monocyte# 0.83 X10^3/uL; Monocyte% 15.2 % (0-10); NRBC Flagged by Analyzer 0 % (0-5); Neutrophil # 2.63 X10^3/uL (2.7-7.7); Neutrophil % 48.1 % (47-70); Platelet Count 238 K/mm3 (150-450); RBC Distribution Width CV 15.1 % (11.6-14.6); RBC Distribution Width SD 55.1 fl (35.1-43.9); Red Blood Count 3.93 M/mm3 (4.2-5.4); White Blood Count 5.5 K/mm3 (4.4-11.0)
[2025-01-04 18:34] LABS: ALB/GLOB Ratio 1.4 RATIO (0.9-2.4); AST(SGOT) 22 U/L (<=31); Alanine Aminotransfer ALT/SGPT 16 U/L (<=34); Alkaline Phosphatase 124 U/L (35-104); Anion Gap 9 (5-15); BUN 19 mg/dL (4-19); Calcium,Total 9.8 mg/dL (7.6-11.0); Carbon Dioxide 24.1 mmol/L (21.0-32.0); Chloride 108 mmol/L (98-108); Creatinine, Serum 0.78 mg/dL (0.70-1.20); EST Glomerular Filtration Rate 77 (>60); Globulin 2.8 g/dL (2.2-4.2); Glucose 82 mg/dL (70-99); Potassium 4.7 mmol/L (3.3-5.1); Protein, Total 6.8 g/dL (5.9-8.4); Sodium Level 141 mmol/L (133-145); Total Bilirubin 0.26 mg/dL (0.00-1.30)
== END | disposition home or self-care (01) ==
LOC: MTLAB 13:54
PROVIDERS: PCP Family Medicine; Referring Provider Internal Medicine Rheumatology; Visit Provider Internal Medicine Rheumatology
DX: M06.4 Inflammatory polyarthropathy (principal); Z79.899 Other long term (current) drug therapy; M17.0 Bilateral primary osteoarthritis of knee; M65.321 Trigger finger, right index finger
CPT/HCPCS: 36415; 80053; 85025

== ENCOUNTER → 2025-04-05 | Outpatient (CLI) | payer MEDICARE, SELFPAY ==
[2025-04-05 10:55] LABS: AST(SGOT) 22 U/L (<=31); Alanine Aminotransfer ALT/SGPT 15 U/L (<=34); Albumin, Serum 4.0 g/dL (3.4-4.8); Alkaline Phosphatase 125 U/L (35-104); Anion Gap 9 (5-15); BUN 13 mg/dL (4-19); BUN/Creat Ratio 15.0 RATIO (10-20); Calcium,Total 9.7 mg/dL (7.6-11.0); Carbon Dioxide 27.5 mmol/L (21.0-32.0); Chloride 103 mmol/L (98-108); Globulin 2.9 g/dL (2.2-4.2); Glucose 89 mg/dL (70-99); Potassium 4.2 mmol/L (3.3-5.1)
[2025-04-05 11:51] LABS: Hematocrit 44.5 % (37-47); Hemoglobin 14.9 g/dL (12.0-15.0); Immature Granulocytes Count 0.020 X10^3/uL (0.0-0.0); Mean Corp Hgb Conc 33.5 g/dL (32-36); Mean Corpuscular Volume 97.2 fL (81-99); Mean Platelet Vol. 11.6 fl (6.2-12.0); NRBC Flagged by Analyzer 0 % (0-5); Platelet Count 223 K/mm3 (150-450); RBC Distribution Width CV 14.1 % (11.6-14.6); RBC Distribution Width SD 49.8 fl (35.1-43.9); Red Blood Count 4.58 M/mm3 (4.2-5.4); White Blood Count 5.1 K/mm3 (4.4-11.0)
== END | disposition home or self-care (01) ==
LOC: MTLAB 08:16
PROVIDERS: PCP Family Medicine; Referring Provider Internal Medicine Rheumatology; Visit Provider Internal Medicine Rheumatology
DX: M06.4 Inflammatory polyarthropathy (principal); Z79.899 Other long term (current) drug therapy
CPT/HCPCS: 36415; 80053; 85025

== ENCOUNTER → 2025-09-13 | Outpatient (CLI) | payer MEDICARE, SELFPAY ==
[2025-09-13 15:19] LABS: Hematocrit 44.6 % (37-47); Hemoglobin 15.1 g/dL (12.0-15.0); Immature Granulocytes Count 0.030 X10^3/uL (0.0-0.0); Mean Corp Hgb Conc 33.9 g/dL (32-36); Mean Corpuscular Volume 98.5 fL (81-99); Mean Platelet Vol. 11.6 fl (6.2-12.0); NRBC Flagged by Analyzer 0 % (0-5); Platelet Count 221 K/mm3 (150-450); RBC Distribution Width CV 14.5 % (11.6-14.6); RBC Distribution Width SD 51.8 fl (35.1-43.9); Red Blood Count 4.53 M/mm3 (4.2-5.4); White Blood Count 6.5 K/mm3 (4.4-11.0)
[2025-09-13 15:43] LABS: AST(SGOT) 23 U/L (<=31); Alanine Aminotransfer ALT/SGPT 17 U/L (<=34); Albumin, Serum 4.2 g/dL (3.4-4.8); Alkaline Phosphatase 112 U/L (35-104); Anion Gap 9 (7-18); BUN 16 mg/dL (4-19); BUN/Creat Ratio 20.3 RATIO (10-20); Calcium,Total 10.2 mg/dL (7.6-11.0); Carbon Dioxide 28.2 mmol/L (20.0-29.0); Chloride 104 mmol/L (96-106); Globulin 3.0 g/dL (2.2-4.2); Glucose 96 mg/dL (70-99); Potassium 4.2 mmol/L (3.5-5.1)
== END | disposition home or self-care (01) ==
LOC: MTLAB 12:51
PROVIDERS: PCP Family Medicine; Referring Provider Internal Medicine Rheumatology; Visit Provider Internal Medicine Rheumatology
DX: M06.4 Inflammatory polyarthropathy (principal); Z79.899 Other long term (current) drug therapy
CPT/HCPCS: 36415; 80053; 85025